=== PATIENT | female | born 1935 | race Caucasian/White ===

== ENCOUNTER → 2017-01-21 | Outpatient (CLI) | payer OTHER, MEDICARE | LOC: CIMAGING 13:05 | PROVIDERS: ATTEND Internal Medicine | DX: R06.00 Dyspnea, unspecified (principal) | CPT/HCPCS: 71020-PO ==

== ENCOUNTER 2017-01-30 12:32 | Emergency (ER) | payer OTHER, MEDICARE ==
[2017-01-30 12:39] VITALS: TEMP 99
--- NOTE | 2017-01-30 12:42 | EDPHY ---
H & P Time Seen by Provider: 01/30/17 12:34 HPI/ROS: CHIEF COMPLAINT: Shortness of breath HISTORY OF PRESENT ILLNESS: Patient had evaluation at her primary care provider 's office 2 days ago and was at her usual baseline. She is a history of COPD and is on 3 L nasal cannula. Patient states that today she began getting more short of breath and was having trouble doing her usual house work and house chores because she would get short of breath which was worse with exertion. Occasional cough with nonproductive, no hemoptysis. No leg swelling. No chest pain. Symptoms are worse than usual. REVIEW OF SYSTEMS: Eye: no change in vision ENT: no sore throat Cardiac: no chest pain or syncope Pulmonary: HPI Abdomen: no vomiting, diarrhea, abdominal pain Musculoskeletal: no back pain Skin: no rash Neuro: no headache Constitutional: no fever : no urinary symptoms A comprehensive 10 point review of systems is otherwise negative aside from elements mentioned in the history of present illness. PAST MEDICAL HISTORY: History and physical dated 08/14/2016 personally reviewed. Includes hypertension, COPD on 3 L nasal cannula, restless leg, hyperlipidemia. Tubal ligation, breast implant, appendectomy. Social history: Ex smoker General Appearance: Alert and conversant, cooperative. Eyes: No scleral icterus. ENT, Mouth: Normal mucous membranes. Respiratory: Decreased breath sounds bilaterally. Cardiovascular: Regular rate and rhythm. Gastrointestinal: Abdomen is soft and non tender. Neurological: Alert and oriented x3. Normally conversant. Face symmetric, normal movement and sensation in all extremities. Skin: Warm and dry, no rashes. Musculoskeletal: No peripheral edema and no joint swelling. No calf tenderness. Psychiatric: Not agitated. Emergency Department course/MDM: DuoNeb, chest x-ray, D-dimer an EKG. 1326: CT angio chest ordered for slightly elevated D-dimer, 2nd nebulizer and 60 mg oral prednisone. I still think the most likely cause of the patient's symptoms is COPD exacerbation. 1545: Results discussed, patient feels better and feels stable for discharge. She is really back to her baseline respiratory status. I think acute coronary syndrome or anginal equivalent is not likely. Smoking Status: Never smoked Constitutional: Initial Vital Signs Temperature (C) 37.2 C 01/30/17 12:32 Heart Rate 99 01/30/17 12:32 Respiratory Rate 22 H 01/30/17 12:32 Blood Pressure 151/75 H 01/30/17 12:32 O2 Sat (%) 94 01/30/17 12:32 O2 Delivery Mode Nasal Cannula O2 (L/minute) 3 Allergies/Adverse Reactions: metformin [Metformin] Allergy (Severe, Verified 01/30/17 12:37) Intolerant Penicillins Allergy (Severe, Verified 01/30/17 12:37) Hives tiotropium bromide [From Spiriva with HandiHaler] Allergy (Severe, Verified 08/10 12:37) Hives Home Medications: Medication Instructions Recorded Atorvastatin Calcium [Lipitor 10 10 mg PO DAILY 02/29/16 mg (*)] Diltiazem Cd [Cardizem ER 120 MG 120 mg PO DAILY 02/29/16 (*)] Losartan Potassium [Cozaar 50 mg 100 mg PO DAILY 02/29/16 (*)] Metoprolol Tartrate [Lopressor 50 75 mg PO DAILY 02/29/16 mg (*)] Ipratropium [Atrovent Hfa (*)] 1 puffs IH DAILY PRN 03/31/16 Zolpidem Tartrate [Ambien 5MG (*)] 5 mg PO HS PRN 03/31/16 rOPINIRole HCL [Requip 0.25mg (RX)] 0.25 mg PO HS 03/31/16 Albuterol [Proventil Inhaler HFA 1 puffs IH DAILY PRN 08/14/16 (*)] Aspirin [Aspirin 325 mg (*)] 325 mg PO DAILY 08/14/16 Fluticasone/Salmeter 250/50Mcg 1 puffs IH BID 08/14/16 [Advair 250/50 (*)] Loratadine [Claritin 10 mg] 10 mg PO DAILY PRN 08/14/16 Tiotropium Inhaler [Spiriva 18 mcg IH HS 08/14/16 Handihaler] amLODIPine BESYLATE [Norvasc 5 mg 5 mg PO DAILY 08/14/16 (*)] predniSONE [prednisone 20mg (RX)] 20 mg PO Q12 #15 tab 01/30/17 Medical Decision Making - Diagnostics EKG Interpretation: 12-lead EKG interpreted by me; official reading is in trace master. My interpretation is sinus rhythm rate 99 with PACs and low frontal voltage. No acute ischemic changes. Imaging: CT angio reviewed with Dr. Gibson at 3:30 p.m. shows severe emphysema but no pulmonary embolism or other acute abnormality. Differential Diagnosis: Differential diagnosis considered for shortness of breath including but not limited to pulmonary infectious process, COPD, asthma, pulmonary embolus and congestive heart failure. - Data Points Laboratory Results: Laboratory Results 01/30/17 12:35 01/30/17 12:35 01/30/17 01/30/17 01/30/17 12:35 12:35 12:35 WBC 8.14 10^3/uL 10^3/uL (3.80-9.50) RBC 4.30 10^6/uL 10^6/uL (4.18-5.33) Hgb 13.5 g/dL g/dL (12.6-16.3) Hct 39.9 % % (38.0-47.0) MCV 92.8 fL fL (81.5-99.8) MCH 31.4 pg pg (27.9-34.1) MCHC 33.8 g/dL g/dL (32.4-36.7) RDW 12.4 % % (11.5-15.2) Plt Count 238 10^3/uL 10^3/uL (150-400) MPV 9.0 fL fL (8.7-11.7) Neut % (Auto) 75.4 % H % (39.3-74.2) Lymph % (Auto) 10.1 % L % (15.0-45.0) [place] % (Auto) 10.3 % % (4.5-13.0) Eos % (Auto) 1.4 % % (0.6-7.6) Baso % (Auto) 0.2 % L % (0.3-1.7) Nucleat RBC Rel Count 0.0 % % (0.0-0.2) Absolute Neuts (auto) 6.14 10^3/uL 10^3/uL (1.70-6.50) Absolute Lymphs (auto) 0.82 10^3/uL L 10^3/uL (1.00-3.00) Absolute Monos (auto) 0.84 10^3/uL H 10^3/uL (0.30-0.80) Absolute Eos (auto) 0.11 10^3/uL 10^3/uL (0.03-0.40) Absolute Basos (auto) 0.02 10^3/uL 10^3/uL (0.02-0.10) Absolute Nucleated RBC 0.00 10^3/uL 10^3/uL (0-0.01) Immature Gran % 2.6 % H % (0.0-1.1) Immature Gran # 0.21 10^3/uL H 10^3/uL (0.00-0.10) D-Dimer 0.51 ug/mLFEU H ug/mLFEU (0.00-0.50) Sodium 133 mEq/L L mEq/L (134-144) Potassium 4.1 mEq/L mEq/L (3.5-5.2) Chloride 98 mEq/L mEq/L (97-110) Carbon Dioxide 27 mEq/l mEq/l (22-31) Anion Gap 8 mEq/L mEq/L (8-16) BUN 14 mg/dL mg/dL (7-23) Creatinine 0.6 mg/dL mg/dL (0.6-1.0) Estimated GFR > 60 Glucose 126 mg/dL H mg/dL (70-100) Calcium 9.2 mg/dL mg/dL (8.5-10.4) Troponin I < 0.012 ng/mL ng/mL (0-0.034) Medications Given: Discontinued Medications Albuterol (Proventil Neb) 3 ml IH EDNOW ONE Stop: 01/30/17 12:47 Last Admin: 01/30/17 13:55 Dose: 3 ml Albuterol (Proventil Neb) 3 ml IH EDNOW ONE Stop: 01/30/17 13:24 Last Admin: 01/30/17 13:25 Dose: 3 ml Prednisone (Prednisone) 60 mg PO EDNOW ONE Stop: 01/30/17 13:24 Last Admin: 01/30/17 13:56 Dose: 60 mg Departure - Departure Disposition: Home, Routine, Self-Care Clinical Impression: Chronic obstructive pulmonary disease with acute exacerbation Condition: Good Instructions: COPD (Chronic Obstructive Pulmonary Disease) (ED) Referrals: Patient,NotPresent [Unknown] - As per Instructions (Dr. Rashard Davies, your PCP) Prescriptions: predniSONE [prednisone 20mg (RX)] 20 mg PO Q12 #15 tab
[2017-01-30] MEDS ORDERED: ALBUTEROL 3 ML DEYVIAL IH ONE ×2 (12:46→13:23)
[2017-01-30 12:53] LABS: % IMMATURE GRANULYOCYTES 2.6 % (0.0-1.1); ABSOLUTE IMMATURE GRANULOCYTES 0.21 10^3/uL (0.00-0.10); ADD DIFF? NO; ADD MORPH? NO; ADD SCAN? NO; ATYPICAL LYMPHOCYTE FLAG 10 (0-99); FRAGMENT RBC FLAG 0 (0-99); HEMATOCRIT 39.9 % (38.0-47.0); HEMOGLOBIN 13.5 g/dL (12.6-16.3); LEFT SHIFT FLG 20 (0-99); LIPEMIA HEMOLYSIS FLAG 90 (0-99); MEAN CELL HEMOGLOBIN 31.4 pg (27.9-34.1); MEAN CELL HEMOGLOBIN CONCENTR. 33.8 g/dL (32.4-36.7); MEAN CELL VOLUME 92.8 fL (81.5-99.8); PLATELET CLUMPS FLAG 10 (0-99); PLATELET COUNT 238 10^3/uL (150-400); RED CELL DISTRIBUTION WIDTH 12.4 % (11.5-15.2)
--- NOTE | 2017-01-30 13:06 | CPEKG ---
Heart Rate: 99 RR Interval: 606 P-R Interval: 152 QRSD Interval: 68 QT Interval: 336 QTC Interval: 432 P [place]: 83 QRS [place]: 0 T Wave [place]: 72 EKG Severity - ABNORMAL ECG - EKG Impression: SINUS TACHYCARDIA EKG Impression: MULTIPLE ATRIAL PREMATURE COMPLEXES EKG Impression: LOW VOLTAGE IN FRONTAL LEADS EKG Impression: BORDERLINE INFERIOR Q WAVES Electronically Signed By: Ge Simmons 30-Jan-2017 13:14:23
[2017-01-30 13:09] LABS: ANION GAP 8 mEq/L (8-16); CALCIUM 9.2 mg/dL (8.5-10.4); CARBON DIOXIDE 27 mEq/l (22-31); CHLORIDE 98 mEq/L (97-110); CREATININE 0.6 mg/dL (0.6-1.0); GLOMERULAR FILTRATION RATE > 60; GLUCOSE 126 mg/dL (70-100); POTASSIUM 4.1 mEq/L (3.5-5.2); SODIUM 133 mEq/L (134-144)
[2017-01-30 13:21] LABS: TROPONIN I < 0.012 ng/mL (0-0.034)
[2017-01-30] MEDS ORDERED: predniSONE 20 MG TAB PO ONE (13:23)
[2017-01-30] MEDS ORDERED: IOPAMIDOL (ISOVUE-300) 100 ML BTL IV ONE ×2 (13:32→14:41)
[2017-01-30 16:22] VITALS: BP 165/97; PULSE 98; RESP 16; O2SAT 97
== END 2017-01-30 17:09 | disposition home or self-care (01) ==
LOC: EDUNIT#
DX: J44.1 Chronic obstructive pulmonary disease with (acute) exacerbation (principal); I10 Essential (primary) hypertension; Z87.891 Personal history of nicotine dependence
CPT/HCPCS: 71020; 71275; 93005; 99285; Q9967

== ENCOUNTER 2017-02-04 15:21 | Emergency (ER) | payer OTHER, MEDICARE ==
[2017-02-04] MEDS ORDERED: IPRATROPIUM/ALBUTEROL 3 ML DEYVIAL IH ONE (15:29)
--- NOTE | 2017-02-04 15:29 | EDPHY ---
H & P Smoking Status: Never smoked Time Seen by Provider: 02/04/17 15:23 HPI/ROS: Chief complaint. [ Shortness of breath ] HPI. [ patient is an 82-year-old female here by EMS with shortness of breath. She was seen in our emergency department 5 days ago for same symptoms. Workup included a normal chest CT angiogram which showed no PE but severe COPD. She was treated with DuoNeb and placed on prednisone.He has been feeling much better and felt well this morning. Then she developed some exertional shortness of breath while doing house work this afternoon. She also suffered a bee sting to the right shoulder this afternoon and maybe had slight increase in shortness of breath. No throat swelling. No rash. She is normally on 3 L of oxygen at home and she is 98% saturation on 3 L in the emergency department. no chest pain ROS Constitutional. [no fever/chills, no weakness] Eyes. [no problems with vision] ENT. [no sore throat, no nasal drainage] Cardiovascular. [no chest pain] Respiratory. shortness of breath Abdominal. [no abdominal pain, no nausea/vomiting, no diarrhea] . [no problems urinating] MS. [no calf pain/swelling, no neck/back pain, no joint pain] Skin. [no rash] Lymph. [no swollen glands] Neuro. [no headache, no dizziness, no difficulty walking or with speech] ( Chepe Dean) Past Medical/Surgical History: past medical history significant for COPD (Chepe Dean) Social History: , nonsmoker, no alcohol (Chepe Dean) Physical Exam: General Appearance: Alert well-developed female mild distress vital signs are stable Eyes:[ Pupils equal and round no pallor or injection]. ENT,[ Mouth: Mucous membranes are moist.] Respiratory: [There are no retractions, lungs are clear to auscultation.] Cardiovascular:[ Regular rate and rhythm.] Gastrointestinal: [ Abdomen is soft and nontender, no masses, bowel sounds normal.] Neurological: [Awake and alert, sensory and motor exams grossly normal.] Skin:[ Warm and dry, no rashes.] Musculoskeletal: [Neck is supple nontender.] Extremities [ symmetrical, full range of motion.] Psychiatric:[ Patient is oriented X 3, there is no agitation.] (Jermaine,Chepe S) Constitutional: Initial Vital Signs Temperature (C) 97.9 F 02/04/17 15:21 Heart Rate 98 02/04/17 15:21 Respiratory Rate 20 02/04/17 15:21 Blood Pressure 193/85 H 02/04/17 15:21 O2 Sat (%) 95 02/04/17 15:21 O2 Delivery Mode Nasal Cannula O2 (L/minute) 3 Allergies/Adverse Reactions: metformin [Metformin] Allergy (Severe, Verified 02/09/17 19:52) Intolerant Penicillins Allergy (Severe, Verified 02/09/17 19:52) Hives tiotropium bromide [From Spiriva with HandiHaler] Allergy (Severe, Verified 19:52) Hives Home Medications: Medication Instructions Recorded Atorvastatin Calcium [Lipitor 10 10 mg PO DAILY 02/29/16 mg (*)] Diltiazem Cd [Cardizem ER 120 MG 120 mg PO DAILY 02/29/16 (*)] Losartan Potassium [Cozaar 50 mg 100 mg PO DAILY 02/29/16 (*)] Metoprolol Tartrate [Lopressor 50 75 mg PO DAILY 02/29/16 mg (*)] Ipratropium [Atrovent Hfa (*)] 1 puffs IH DAILY PRN 03/31/16 Zolpidem Tartrate [Ambien 5MG (*)] 5 mg PO HS PRN 03/31/16 rOPINIRole HCL [Requip 0.25mg (RX)] 0.25 mg PO HS 03/31/16 Albuterol [Proventil Inhaler HFA 1 puffs IH DAILY PRN 08/14/16 (*)] Aspirin [Aspirin 325 mg (*)] 325 mg PO DAILY 08/14/16 Fluticasone/Salmeter 250/50Mcg 1 puffs IH BID 08/14/16 [Advair 250/50 (*)] amLODIPine BESYLATE [Norvasc 5 mg 5 mg PO DAILY 08/14/16 (*)] predniSONE 20 mg PO DAILY 7 Days 02/04/17 Medical Decision Making - Diagnostics EKG Interpretation: EKG interpreted by me shows normal sinus rhythm with normal interval. There is left axis deviation. Occasional PVC. No significant ST elevation or depression. Rate is 87 (Jermaine,Chepe S) Imaging: Chest x-ray shows COPD but no acute change. no evidence for pneumonia there is no acute change from previous chest x-ray 5 days ago (Chepe Dean) Procedures: albuterol updraft (Chepe Dean) ED Course/Re-evaluation: patient normally uses 3 L of oxygen. She is currently 98% saturation on 3 L recheck 4:20 p.m. (Chepe Dean) Differential Diagnosis: I considered COPD exacerbation, pneumonia, bronchitis (Chepe Dean) Other Provider: I did not evaluate this patient. I was not involved in the care of this patient. I do not know why my name is on the chart. Please see Dr. Dean's note for all aspects of this patient's care. (Jairo Galdamez) - Data Points Laboratory Results: Laboratory Results 02/04/17 15:46 02/04/17 15:46 Medications Given: Discontinued Medications Albuterol (Proventil Neb) 3 ml IH EDNOW ONE Stop: 02/04/17 15:32 Last Admin: 02/04/17 15:45 Dose: 3 ml Albuterol/Ipratropium (Duoneb) 3 ml IH EDNOW ONE Stop: 02/04/17 15:30 Last Admin: 02/04/17 15:34 Dose: Not Given Departure - Departure Disposition: Home, Routine, Self-Care Clinical Impression: Chronic obstructive pulmonary disease with acute exacerbation Condition: Good Instructions: Acute Bronchitis (ED) Additional Instructions: continue your breathing treatments at home. Continue using prednisone and I will write your prescription for more. Zithromax as antibiotic try to move your appointment up with Dr. Davies to be seen in next 2-3 days Referrals: Patient,NotPresent [Unknown] - As per Instructions Prescriptions: predniSONE 20 mg PO DAILY 7 Days
[2017-02-04] MEDS ORDERED: ALBUTEROL 3 ML DEYVIAL IH ONE (15:31)
[2017-02-04 15:33] VITALS: TEMP 97.9; O2SAT 95
--- NOTE | 2017-02-04 15:47 | CPEKG ---
Heart Rate: 87 RR Interval: 690 P-R Interval: 140 QRSD Interval: 76 QT Interval: 356 QTC Interval: 429 P [place]: 70 QRS [place]: -1 T Wave [place]: 47 EKG Severity - ABNORMAL ECG - EKG Impression: SINUS RHYTHM Electronically Signed By: Chepe Dean 05-Feb-2017 00:13:59
[2017-02-04 15:50] LABS: ADD DIFF? YES; ADD MORPH? NO; ADD SCAN? NO; ATYPICAL LYMPHOCYTE FLAG 0 (0-99); FRAGMENT RBC FLAG 0 (0-99); HEMATOCRIT 40.1 % (38.0-47.0); HEMOGLOBIN 13.5 g/dL (12.6-16.3); LEFT SHIFT FLG 20 (0-99); LIPEMIA HEMOLYSIS FLAG 80 (0-99); MEAN CELL HEMOGLOBIN CONCENTR. 33.7 g/dL (32.4-36.7); MEAN CELL VOLUME 92.2 fL (81.5-99.8); MEAN PLATELET VOLUME 9.1 fL (8.7-11.7); PLATELET CLUMPS FLAG 0 (0-99); PLATELET COUNT 308 10^3/uL (150-400); RED BLOOD CELL COUNT 4.35 10^6/uL (4.18-5.33); RED CELL DISTRIBUTION WIDTH 12.3 % (11.5-15.2)
[2017-02-04 16:04] LABS: ANION GAP 15 mEq/L (8-16); CALCIUM 9.7 mg/dL (8.5-10.4); CARBON DIOXIDE 24 mEq/l (22-31); CHLORIDE 95 mEq/L (97-110); CREATININE 0.6 mg/dL (0.6-1.0); GLOMERULAR FILTRATION RATE > 60; GLUCOSE 270 mg/dL (70-100); POTASSIUM 3.8 mEq/L (3.5-5.2); SODIUM 134 mEq/L (134-144)
[2017-02-04 16:08] VITALS: RESP 18
[2017-02-04 16:16] LABS: TROPONIN I < 0.012 ng/mL (0-0.034)
[2017-02-04 16:24] LABS: LARGE PLATELETS PRESENT; PLATELET ESTIMATE ADEQUATE (ADEQ)
[2017-02-04 16:50] VITALS: BP 199/72; PULSE 89
== END 2017-02-04 17:06 | disposition home or self-care (01) ==
LOC: EDUNIT#
DX: J44.1 Chronic obstructive pulmonary disease with (acute) exacerbation (principal); Z79.82 Long term (current) use of aspirin

== ENCOUNTER 2017-02-09 19:35 | Observation (INO) | payer OTHER, MEDICARE ==
--- NOTE | 2017-02-09 19:35 | EDPHY ---
H & P Constitutional: Initial Vital Signs Temperature (C) 36.6 C 02/09/17 19:51 Heart Rate 103 H 02/09/17 19:51 Respiratory Rate 20 02/09/17 19:51 Blood Pressure 167/88 H 02/09/17 19:51 O2 Sat (%) 94 02/09/17 19:51 O2 Delivery Mode Nasal Cannula O2 (L/minute) 3 Allergies/Adverse Reactions: metformin [Metformin] Allergy (Severe, Verified 02/09/17 19:52) Intolerant Penicillins Allergy (Severe, Verified 02/09/17 19:52) Hives tiotropium bromide [From Spiriva with HandiHaler] Allergy (Severe, Verified 19:52) Hives Home Medications: Medication Instructions Recorded Atorvastatin Calcium [Lipitor 10 10 mg PO DAILY 02/29/16 mg (*)] Diltiazem Cd [Cardizem ER 120 MG 120 mg PO DAILY 02/29/16 (*)] Losartan Potassium [Cozaar 50 mg 100 mg PO DAILY 02/29/16 (*)] Metoprolol Tartrate [Lopressor 50 75 mg PO DAILY 02/29/16 mg (*)] Ipratropium [Atrovent Hfa (*)] 1 puffs IH DAILY PRN 03/31/16 Zolpidem Tartrate [Ambien 5MG (*)] 5 mg PO HS PRN 03/31/16 rOPINIRole HCL [Requip 0.25mg (RX)] 0.25 mg PO HS 03/31/16 Albuterol [Proventil Inhaler HFA 1 puffs IH DAILY PRN 08/14/16 (*)] Aspirin [Aspirin 325 mg (*)] 325 mg PO DAILY 08/14/16 Fluticasone/Salmeter 250/50Mcg 1 puffs IH BID 08/14/16 [Advair 250/50 (*)] Loratadine [Claritin 10 mg] 10 mg PO DAILY PRN 08/14/16 amLODIPine BESYLATE [Norvasc 5 mg 5 mg PO DAILY 08/14/16 (*)] predniSONE 20 mg PO DAILY 7 Days 02/04/17 Medical Decision Making ED Course/Re-evaluation: CHIEF COMPLAINT: Weakness, atrial fibrillation HISTORY OF PRESENT ILLNESS: The patient is an 82 y/o female arriving via EMS complaining of generalized weakness onset around 18:45, about 1 hour prior to arrival. EMS reports they found her in rapid atrial fibrillation with a rate around 180. She reports she can tell exactly when her rhythm changes. She has been to the ED once before for atrial fibrillation but converted with "a pill." She is compliant with all her medications. She denies chest pain or pressure or [id number] dyspnea. She does not take anticoagulants, only aspirin. EMS believes she converted to sinus tachycardia after IV fluid en route. REVIEW OF SYSTEMS: A 10 point review of systems was performed and is negative with the exception of the elements mentioned in the history of present illness. PHYSICAL EXAM: HR, BP, O2 Sat, RR. Temp noted General Appearance: Alert, well hydrated, appropriate, and non-toxic appearing. Head: Atraumatic without scalp tenderness or obvious injury Eyes: Pupils equal, round, reactive to light and accommodation, EOMI, no trauma , no injection. Ears: Clear bilaterally, no perforation, normal landmarks Nose: Atraumatic, no rhinorrhea, clear. Throat: There is no erythema or exudates, no lesions, normal tonsils, mucus membranes moist. Neck: Supple, nontender, no lymphadenopathy. Respiratory: No retractions, no distress, no wheezes, and no accessory muscle use. Lungs are clear to auscultation bilaterally. Cardiovascular: Tachycardic regular rate and rhythm, no murmurs, rubs, or gallops. Bilateral radial pulses intact. Good capillary refill all extremities. Gastrointestinal: Abdomen is soft, nontender, non-distended, no masses, no rebound, no guarding, no peritoneal signs. Musculoskeletal: Normal active ROM of all extremities, atraumatic. Neurological: Alert, appropriate, and interactive. The patient has normal DTRs and non-focal cranial nerves, motor, sensory, and cerebellar exam. Skin: No rashes, good turgor, no nodules on palpation. 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 Sharp DIAGNOSTICS/PROCEDURES/CRITICAL CARE TIME: The 12 lead EKG was interpreted by myself. EKG shows sinus rhythm rate 94 with PACs. See hard copy and/or "tracemaster" electronic copy for interpretation. DIFFERENTIAL DIAGNOSIS: The differential diagnosis for the patient's narrow complex tachycardia included but was not limited to various causes of sinus tachycardia such as dehydration and medicines, SVT, atrial flutter, atrial fibrillation, pulmonary causes. MEDICAL DECISION MAKING: This is a well-appearing 82 y/o female presenting after a 1-hour episode of weakness and rapid heart rate tonight. EMS found her in rapid atrial fibrillation, but she converted to sinus tachycardia en route. She denies chest pain, [id number] dyspnea, or other symptoms. Plan for basic cardiac labs and EKG. EKGs shows sinus rhythm and PACs. Labs show elevated BNP, which likely represents some CHF, elevated troponin that probably represents heart strain from the episode of atrial fibrillation, and a BGL of 415. She reports she is borderline diabetic and does not take insulin regularly. 10 unit SQ insulin administered. Plan for admission. - Data Points Laboratory Results: Laboratory Results 02/09/17 20:00 02/09/17 20:00 02/09/17 02/09/17 20:00 20:00 WBC 15.37 10^3/uL H 10^3/uL (3.80-9.50) RBC 4.64 10^6/uL 10^6/uL (4.18-5.33) Hgb 14.2 g/dL g/dL (12.6-16.3) Hct 42.6 % % (38.0-47.0) MCV 91.8 fL fL (81.5-99.8) MCH 30.6 pg pg (27.9-34.1) MCHC 33.3 g/dL g/dL (32.4-36.7) RDW 12.7 % % (11.5-15.2) Plt Count 302 10^3/uL 10^3/uL (150-400) MPV 9.1 fL fL (8.7-11.7) Neut % (Auto) Not Reported Lymph % (Auto) Not Reported [place] % (Auto) Not Reported Eos % (Auto) Not Reported Baso % (Auto) Not Reported Nucleat RBC Rel Count 0.4 % H % (0.0-0.2) Absolute Neuts (auto) Not Reported Absolute Lymphs (auto) Not Reported Absolute Monos (auto) Not Reported Absolute Eos (auto) Not Reported Absolute Basos (auto) Not Reported Absolute Nucleated RBC 0.06 10^3/uL H 10^3/uL (0-0.01) Immature Gran % Not Reported Seg Neutrophils % 87 % % Band Neutrophils % 2 % % Lymphocytes % 5 % % Monocytes % 3 % % Myelocytes % 3 % % Immature Gran # Not Reported Absolute Seg Neuts 13.37 10^/uL H 10^/uL (1.70-6.50) Absolute Band Neuts 0.31 10^3/uL 10^3/uL (0.00-0.70) Absolute Lymphocytes 0.77 10^3/uL L 10^3/uL (1.00-3.00) Absolute Monocytes 0.46 10^3/uL 10^3/uL (0.30-0.80) Absolute Myelocytes 0.46 10^3/mL H 10^3/mL (0.00-0.00) Platelet Estimate ADEQUATE (ADEQ) Tear Drop Cells 1+ H Smear Review By Pending Sodium 135 mEq/L mEq/L (134-144) Potassium 4.1 mEq/L mEq/L (3.5-5.2) Chloride 95 mEq/L L mEq/L (97-110) Carbon Dioxide 24 mEq/l mEq/l (22-31) Anion Gap 16 mEq/L mEq/L (8-16) BUN 26 mg/dL H mg/dL (7-23) Creatinine 0.8 mg/dL mg/dL (0.6-1.0) Estimated GFR > 60 Glucose 415 mg/dL H mg/dL (70-100) Calcium 9.5 mg/dL mg/dL (8.5-10.4) Magnesium 1.9 mg/dL mg/dL (1.6-2.3) Troponin I 0.047 ng/mL H ng/mL (0-0.034) NT-Pro-B Natriuret Pep 1210 pg/mL H pg/mL (0-450) Departure - Departure Disposition: [facility] Clinical Impression: Elevated troponin, Hyperglycemia Atrial fibrillation Qualifiers: Atrial fibrillation type: paroxysmal Qualified Code(s): I48.0 - Paroxysmal atrial fibrillation Condition: Good Instructions: A-fib (Atrial Fibrillation) (ED) Additional Instructions: 1. Continue all your medications as prescribed. Referrals: Patient,NotPresent [Primary Care Provider] - As per Instructions Cruz Sharp MD [Medical Doctor] - As per Instructions Report Scribed for: Gee Rizvi Report Scribed by: Lila Oviedo Date of Report: 02/09/17 Time of Report: 19:45
--- NOTE | 2017-02-09 20:02 | CPEKG ---
Heart Rate: 94 RR Interval: 638 P-R Interval: 152 QRSD Interval: 68 QT Interval: 352 QTC Interval: 441 P [place]: 70 QRS [place]: -5 T Wave [place]: 50 EKG Severity - BORDERLINE ECG - EKG Impression: SINUS RHYTHM EKG Impression: ATRIAL PREMATURE COMPLEX EKG Impression: BORDERLINE INFERIOR Q WAVES Electronically Signed By: Kim Bauman 09-Feb-2017 21:20:14
[2017-02-09 20:17] LABS: ABSOLUTE NRBC COUNT 0.06 10^3/uL (0-0.01); ADD DIFF? YES; ADD MORPH? NO; ADD SCAN? NO; ATYPICAL LYMPHOCYTE FLAG 0 (0-99); FRAGMENT RBC FLAG 0 (0-99); HEMATOCRIT 42.6 % (38.0-47.0); HEMOGLOBIN 14.2 g/dL (12.6-16.3); LEFT SHIFT FLG 30 (0-99); LIPEMIA HEMOLYSIS FLAG 80 (0-99); MEAN CELL HEMOGLOBIN 30.6 pg (27.9-34.1); MEAN CELL HEMOGLOBIN CONCENTR. 33.3 g/dL (32.4-36.7); MEAN CELL VOLUME 91.8 fL (81.5-99.8); MEAN PLATELET VOLUME 9.1 fL (8.7-11.7); NRBC-AUTO% 0.4 % (0.0-0.2); PLATELET CLUMPS FLAG 0 (0-99); PLATELET COUNT 302 10^3/uL (150-400); RED BLOOD CELL COUNT 4.64 10^6/uL (4.18-5.33); RED CELL DISTRIBUTION WIDTH 12.7 % (11.5-15.2)
[2017-02-09 20:25] LABS: ANION GAP 16 mEq/L (8-16); CALCIUM 9.5 mg/dL (8.5-10.4); CARBON DIOXIDE 24 mEq/l (22-31); CHLORIDE 95 mEq/L (97-110); CREATININE 0.8 mg/dL (0.6-1.0); GLOMERULAR FILTRATION RATE > 60; GLUCOSE 415 mg/dL (70-100); MAGNESIUM 1.9 mg/dL (1.6-2.3); POTASSIUM 4.1 mEq/L (3.5-5.2); SODIUM 135 mEq/L (134-144)
[2017-02-09 20:37] LABS: TROPONIN I 0.047 ng/mL (0-0.034)
[2017-02-09 20:39] LABS: PLATELET ESTIMATE ADEQUATE (ADEQ)
[2017-02-09] MEDS ORDERED: INSULIN REGULAR HUMAN 100 UNIT/ML SC ONE (20:45)
[2017-02-10] MEDS ORDERED: ACETAMINOPHEN 325 MG TAB PO PRN (02:11)
[2017-02-10] MEDS ORDERED: ONDANSETRON 4 MG/2 ML VIAL IVP PRN (02:11)
[2017-02-10] MEDS ORDERED: ONDANSETRON DISINTEGRATING 4 MG TAB PO PRN (02:11)
[2017-02-10] MEDS ORDERED: ZOLPIDEM TARTRATE 5 MG TAB PO PRN (02:12)
[2017-02-10] MEDS ORDERED: D50W 25 GM/50 ML SYR IVP PRN (02:14)
[2017-02-10 04:51] LABS: ADD DIFF? YES; ADD MORPH? NO; ADD SCAN? NO; ATYPICAL LYMPHOCYTE FLAG 0 (0-99); FRAGMENT RBC FLAG 0 (0-99); HEMATOCRIT 37.5 % (38.0-47.0); HEMOGLOBIN 12.6 g/dL (12.6-16.3); LEFT SHIFT FLG 30 (0-99); LIPEMIA HEMOLYSIS FLAG 80 (0-99); MEAN CELL HEMOGLOBIN 31.4 pg (27.9-34.1); MEAN CELL HEMOGLOBIN CONCENTR. 33.6 g/dL (32.4-36.7); MEAN CELL VOLUME 93.5 fL (81.5-99.8); PLATELET CLUMPS FLAG 0 (0-99); PLATELET COUNT 247 10^3/uL (150-400); RED BLOOD CELL COUNT 4.01 10^6/uL (4.18-5.33); RED CELL DISTRIBUTION WIDTH 12.6 % (11.5-15.2)
[2017-02-10 05:10] LABS: ANION GAP 7 mEq/L (8-16); CALCIUM 8.7 mg/dL (8.5-10.4); CARBON DIOXIDE 30 mEq/l (22-31); CHLORIDE 100 mEq/L (97-110); CREATININE 0.6 mg/dL (0.6-1.0); GLOMERULAR FILTRATION RATE > 60; GLUCOSE 116 mg/dL (70-100); POTASSIUM 4.1 mEq/L (3.5-5.2); SODIUM 137 mEq/L (134-144)
[2017-02-10 05:19] LABS: TROPONIN I 0.032 ng/mL (0-0.034)
[2017-02-10 06:03] LABS: PLATELET ESTIMATE ADEQUATE (ADEQ)
--- NOTE | 2017-02-10 07:49 | GHP ---
[f rep st] HISTORY AND PHYSICAL DATE OF ADMISSION: 02/09/2017 CHIEF COMPLAINT: Heart palpitations. HISTORY OF PRESENT ILLNESS: This is an 82-year-old female with a history of COPD and atrial fibrill ation. She has been struggling with bronchitis and COPD exacerbation for the last couple weeks and has been on a couple rounds of steroids. She is due to stop her steroids today, the day of admissio n. She was feeling generally pretty well and has had sudden episode of weakness and measured her he art rate was in the 180s. She then called EMS. By the time she got to the emergency department, sh e had already converted. She is currently feeling well. Denies any chest pain or shortness of clau th. No fevers or chills. REVIEW OF SYSTEMS: A 10-point review of systems obtained other than stated above was negative. PAST MEDICAL HISTORY: 1. COPD on 2-3 L of oxygen. 2. Atrial fibrillation. 3. Coronary artery disease. 4. Hypertension. 5. Osteoarthritis. 6. Restless legs syndrome. MEDICATIONS: Reviewed. FAMILY HISTORY: Both parents are . SOCIAL HISTORY: No smoking, quit. She occasionally drinks alcohol. PHYSICAL EXAM: VITAL SIGNS: Afebrile. Blood pressure is 154/72, heart rate 76, oxygen saturation 98% on 3 L. GENERAL: The patient is well developed, no apparent distress. HEENT: Nonicteric scle francisca. Extraocular movements intact. Moist mucous membranes. NECK: Supple. No thyromegaly. LUNGS : Decreased breath sounds. Some slight fine expiratory wheezes. CARDIOVASCULAR: Regular rate and rhythm. No murmurs, rubs or gallops. ABDOMEN: Positive bowel sounds. Soft, nontender, nondistend ed. No hepatosplenomegaly. EXTREMITIES: No clubbing, cyanosis, or edema. SKIN: Without rash, dr y, intact. NEURO: Alert and oriented x3. Moves all 4 extremities equally. PSYCH: Normal affect. LABS: White blood cell count is 12. Blood sugar initially was 400. Troponin is 0.047. There is n ormal sinus rhythm with no ischemic changes. Chest x-ray personally reviewed and interpreted, shows COPD but no acute infiltrate. ASSESSMENT: An 82-year-old female who had a transient episode of atrial fibrillation with rapid marcel tricular response. PLAN: 1. Atrial fibrillation. The patient is in sinus rhythm currently. I am not sure that we would ginny e any changes in her medications at this point. We will notify Cardiology that she is here, but she could probably leave later today. 2. Mild troponin leak. This is probably due to her rapid heart rate. Repeat troponin is trending down. 3. Hyperglycemia. This is most likely due to steroids. I have checked a hemoglobin A1c. We are s topping her steroids today as was her last day. 4. Chronic obstructive pulmonary disease exacerbation. Patient still has a little bit of wheezing. I am going to give her a nebulizer treatment. /[id number]/MODL
[2017-02-10] MEDS: INSULIN LISPRO 100 UNIT/ML SC SCH ×2 (08:15→12:36)
[2017-02-10] MEDS ORDERED: amLODIPine BESYLATE 5 MG TAB PO SCH (09:00)
[2017-02-10] MEDS ORDERED: predniSONE 20 MG TAB PO SCH (09:00)
[2017-02-10] MEDS ORDERED: ASPIRIN 325 MG TAB PO SCH (09:00)
[2017-02-10] MEDS ORDERED: LOSARTAN POTASSIUM 50 MG TAB PO SCH (09:00)
[2017-02-10] MEDS ORDERED: METOPROLOL TARTRATE 50 MG TAB PO SCH (09:00)
[2017-02-10] MEDS ORDERED: DILTIAZEM CD 120 MG CAP PO SCH (09:00)
[2017-02-10] MEDS ORDERED: ATORVASTATIN CALCIUM 10 MG TAB PO SCH (09:00)
[2017-02-10] MEDS ORDERED: FLUTICASONE/SALMETER 250/50MCG DISKUS IH SCH (09:00)
[2017-02-10] MEDS: ALBUTEROL 3 ML DEYVIAL IH SCH ×2 (09:32→09:43)
[2017-02-10 09:38] LABS: HEMOGLOBIN A1C 6.6 % (4.0-6.0)
[2017-02-10 11:31] VITALS: BP 168/75; PULSE 60; RESP 21; TEMP 98.3; O2SAT 95
--- NOTE | 2017-02-10 13:10 | GDS ---
[f rep st] DISCHARGE SUMMARY KNOWN ACUTE DIAGNOSES ON THIS ADMISSION: 1. Acute supraventricular tachycardia, atrial tachycardia, no confirmation of atrial fibrillation. 2. Acute exacerbation chronic obstructive pulmonary disease with chronic hypoxemia on 2-3 L per min [place] oxygen. 3. Coronary artery disease. No chest pain. 4. Hypertension. Good control. CHRONIC DIAGNOSES: 1. Osteoarthritis. 2. Restless legs syndrome. CONSULTATION: Cardiology review of rhythm strips. No confirmation of the presence of atrial fibril lation. The rhythm was judged to be atrial tachycardia, secondary to COPD. HOSPITAL COURSE: An 82-year-old female, who by history has had 1 episode of transient atrial fibril lation back in 2014. She presented with tachypnea, tachycardia, and was thought to have an acute ex acerbation of COPD with possible atrial fibrillation. She was admitted and placed on bronchodilator therapy. Her atrial tachycardia quickly resolved spontaneously. Review of her rhythm strips by [facility] rdiology indicates that this is an atrial tachycardia, an SVT secondary to COPD, but there was no pr esence of atrial fibrillation. Thus, anticoagulation is not indicated. Cardiology indicated that they will follow the patient and place another monitor to assess for the p resence of atrial fibrillation. At this time, they have declined the need for anticoagulation. DISCHARGE MEDICATIONS: These are the same as her admission medications and are as follows: Requip 0.25 mg q.h.s., prednisone 20 mg daily for the next 7 days, amlodipine 5 mg daily, Ambien 5 mg daily , Lopressor 75 mg daily, losartan 100 mg daily, Atrovent inhalation 1 puff q.4 hours p.r.n., Advair 250/50 mcg inhaler 1 puff twice daily, Cardizem ER 120 mg daily, Lipitor 10 mg daily, ASA 325 mg rose ly, albuterol inhaler 1 puff q.4 hours p.r.n. shortness of breath. PLAN: The patient will follow up with her PCP, Dr. Davies, in the next 3-4 days. She will also follo w up with [facility], Dr. Cruz Sharp, for placement of a monitor. CONDITION ON DISCHARGE: Good. CODE STATUS: Full. The patient was discharged in the accompaniment of her son who lives with her. TIME: This discharge required 40 minutes, greater than 50% to service counselor, coordinate care, and coordin ate care with Cardiology and her PCP. /[id number]/MODL
== END 2017-02-10 14:00 | disposition home or self-care (01) ==
LOC: EDUNIT# → F2W 22:03
PROVIDERS: ADMIT Internal Medicine; ATTEND Internal Medicine
DX: I47.1 Supraventricular tachycardia (principal); J44.1 Chronic obstructive pulmonary disease with (acute) exacerbation; Z99.81 Dependence on supplemental oxygen; I10 Essential (primary) hypertension; R73.03 Prediabetes; I25.10 Atherosclerotic heart disease of native coronary artery without angina pectoris
CPT/HCPCS: 93005; G0378; J1815

== ENCOUNTER 2017-02-22 18:53 | Emergency (ER) | payer OTHER, MEDICARE ==
--- NOTE | 2017-02-22 19:00 | EDPHY ---
H & P HPI/ROS: CHIEF COMPLAINT: Shoulder pain HISTORY OF PRESENT ILLNESS: Patient is an 82-year-old female who comes to the emergency department by EMS for right shoulder pain. She had a mechanical fall at home in her kitchen. She had been drinking alcohol today. She also received fentanyl 100 mcg by EMS in route. She now states she has no pain. Her right shoulder is in a sling. There is obvious deformity and puckering of the skin. REVIEW OF SYSTEMS: Constitutional: denies: chills, fever, recent illness, recent injury EENTM: denies: blurred vision, double vision, nose congestion Respiratory: denies: cough, shortness of breath Cardiac: denies: chest pain, irregular heart rate, lightheadedness, palpitations Gastrointestinal/Abdominal: denies: abdominal pain, diarrhea, nausea, vomiting, blood streaked stools Genitourinary: denies: dysuria, frequency, hematuria, pain Musculoskeletal: See HPI Skin: denies: lesions, rash, jaundice, bruising Neurological: denies: headache, numbness, paresthesia, tingling, dizziness, weakness Hematologic/Lymphatic: denies: blood clots, easy bleeding, easy bruising Immunologic/allergic: denies: HIV/AIDS, transplant EXAM: GENERAL: Sleepy, well-nourished and in no acute distress. HEAD: Atraumatic, normocephalic. EYES: Pupils equal round and reactive to light, extraocular movements intact, sclera anicteric, conjunctiva are normal. ENT: TMs normal, nares patent, oropharynx clear without exudates. Moist mucous membranes. NECK: Normal range of motion, supple without lymphadenopathy or JVD. LUNGS: Breath sounds clear to auscultation bilaterally and equal. No wheezes rales or rhonchi. HEART: Regular rate and rhythm without murmurs, rubs or gallops. ABDOMEN: Soft, nontender, normoactive bowel sounds. No guarding, no rebound. No masses appreciated. BACK: No CVA tenderness, no spinal tenderness, step-offs or deformities EXTREMITIES: Right shoulder deformity and puckering of the skin anteriorly. Normal pulses distally. Normal sensation distally. No other extremity injury appreciated. NEUROLOGICAL: Cranial nerves II through XII grossly intact. Normal speech, normal gait. 5/5 strength, normal movement in all extremities, normal sensation PSYCH: Normal mood, normal affect. SKIN: Warm, dry, normal turgor, no visible rashes or lesions. Source: Patient, EMS, Old records Exam Limitations: No limitations - Personal History Tetanus Vaccine Date: < 10 years - Medical/Surgical History Hx Asthma: No Hx Chronic Respiratory Disease: Yes Hx Diabetes: No Hx Cardiac Disease: Yes Hx Renal Disease: No Hx Cirrhosis: No Hx Alcoholism: No Hx HIV/AIDS: No Hx Splenectomy or Spleen Trauma: No Other PMH: pmh- COPD, HTN, SVT, PNA, high cholesterol,. psh- breast augmentation, tonsilectomy, appy, cardiac stent x1, tubal ligation - Family History Significant Family History: No pertinent family hx - Social History Smoking Status: Former smoker Alcohol Use: Sober Drug Use: None Constitutional: Initial Vital Signs Temperature (C) 36.3 C 02/22/17 19:03 Heart Rate 83 02/22/17 19:03 Respiratory Rate 14 02/22/17 19:03 Blood Pressure 137/54 H 02/22/17 19:03 O2 Sat (%) 92 02/22/17 19:03 O2 Delivery Mode Nasal Cannula O2 (L/minute) 3 Allergies/Adverse Reactions: metformin [Metformin] Allergy (Severe, Verified 02/22/17 19:08) Intolerant Penicillins Allergy (Severe, Verified 02/22/17 19:08) Hives tiotropium bromide [From Spiriva with HandiHaler] Allergy (Severe, Verified 12/10 19:08) Hives Home Medications: Medication Instructions Recorded Atorvastatin Calcium [Lipitor 10 10 mg PO DAILY 02/29/16 mg (*)] Diltiazem Cd [Cardizem ER 120 MG 120 mg PO DAILY 02/29/16 (*)] Losartan Potassium [Cozaar 50 mg 100 mg PO DAILY 02/29/16 (*)] Metoprolol Tartrate [Lopressor 50 75 mg PO DAILY 02/29/16 mg (*)] Ipratropium [Atrovent Hfa (*)] 1 puffs IH DAILY PRN 03/31/16 Zolpidem Tartrate [Ambien 5MG (*)] 5 mg PO HS PRN 03/31/16 rOPINIRole HCL [Requip 0.25mg (RX)] 0.25 mg PO HS 03/31/16 Albuterol [Proventil Inhaler HFA 1 puffs IH DAILY PRN 08/14/16 (*)] Aspirin [Aspirin 325 mg (*)] 325 mg PO DAILY 08/14/16 Fluticasone/Salmeter 250/50Mcg 1 puffs IH BID 08/14/16 [Advair 250/50 (*)] amLODIPine BESYLATE [Norvasc 5 mg 5 mg PO DAILY 08/14/16 (*)] predniSONE 20 mg PO DAILY 7 Days 02/04/17 Medical Decision Making - Diagnostics Imaging: X-ray: Clavicle x-ray was obtained. I viewed the images myself on the PACS system. My interpretation of the images is: negative for acute disease . The radiologist interpretation is pending. X-ray: Right shoulder x-ray was obtained. I viewed the images myself on the PACS system. My interpretation of the images is: Positive for anterior dislocation, no fracture the. The radiologist interpretation is pending. X-ray: Right shoulder post reduction x-ray was obtained. I viewed the images myself on the PACS system. My interpretation of the images is: Positive for Hill-Sachs deformity . The radiologist interpretation is pending . Procedures: Procedure: Procedural sedation. Indication: Shoulder reduction. A pre-sedation evaluation was completed on the patient just prior to the procedure. Patient is an appropriate candidate for procedural sedation with a normal 3-3-2 rule assessment and a Mallampati airway score of class 2. The risks of the sedation were discussed including but not limited to dysrhythmia, need for airway intervention or general anesthesia, disability, ; and verbal consent obtained. A timeout was observed and patient's identity confirmed. The patient was sedated with 80 mg ketamine. The patient was monitored with continuous pulse oximetry, capnography, and landscape horticulture instructor. There were no complications and no significant hypoxemia. I remained at the bedside for the sedation. The total time I spent in the procedural sedation was 20 minutes. Procedure: Dislocation reduction. The shoulder was reduced in the usual fashion using the Kevin's technique and scapular manipulation without complications. Post reduction the patient's neurovascular exam is normal. Post reduction x-ray demonstrates reduction of the joint to the anatomic position. The procedure was performed by myself. Procedure: Splint placement. A sling splint was applied. After application of the splint I returned and re- examined the patient. The splint was adequately immobilizing the joint and distal to the splint the patient's circulation and sensation was intact. ED Course/Re-evaluation: Patient failed reduction by Valdez method without sedation. I then sedated her and the reduced it easily. She tolerated the conscious sedation well. She was placed in a sling and will have her follow up with Orthopedics. I reviewed the films with Dr. Colindres. He will follow up with her in the clinic. Splint for tonight. is happy with this. Differential Diagnosis: Partial list of the Differential diagnosis considered include but were not limited to; shoulder dislocation, humerus fracture, clavicle fracture and although unlikely based on the history and physical exam, I also considered head injury neck injury, non accidental trauma, infection. I discussed these differential diagnoses and the plan with the patient as well as the usual and expected course. The patient understands that the diagnosis is provisional and that in medicine we are not always correct and that further workup is often warranted. Usual and customary warnings were given. All of the patient's questions were answered. The patient was instructed to return to the emergency department should the symptoms at all worsen or return, otherwise to followup with the physician as we discussed. - Data Points Medications Given: Discontinued Medications Hydrocodone Bitart/Acetaminophen ([place] 5/325mg Prepack#6) 1 btl TAKEHOME EDNOW ONE Stop: 02/22/17 20:15 Last Admin: 02/22/17 22:46 Dose: 1 btl Ketamine HCl (Ketamine) 80 mg IVP EDNOW ONE Stop: 02/22/17 20:08 Last Admin: 02/22/17 20:01 Dose: 80 mg Propofol (Diprivan) 30 mg IVP EDNOW ONE Stop: 02/22/17 20:32 Last Admin: 02/22/17 20:32 Dose: Not Given Departure - Departure Disposition: Home, Routine, Self-Care Clinical Impression: Hill Sachs deformity, right Shoulder dislocation Qualifiers: Encounter type: initial encounter Laterality: right Qualified Code(s): S43.004A - Unspecified dislocation of right shoulder joint, initial encounter Condition: Fair Instructions: Shoulder Dislocation (ED) Referrals: Patient,NotPresent [Unknown] - As per Instructions Huy Colindres MD [Medical Doctor] - As per Instructions
[2017-02-22] MEDS ORDERED: KETAMINE 100 MG/10 ML SYR IVP ONE ×2 (19:45→20:07)
[2017-02-22] MEDS ORDERED: PROPOFOL 200 MG/20 ML VIAL ONE (19:46)
[2017-02-22] MEDS ORDERED: HYDROCOD/APAP 5/325 PREPACK#6 BTL TAKEHOME ONE ×2 (20:14→22:46)
[2017-02-22] MEDS ORDERED: PROPOFOL 200 MG/20 ML VIAL IVP ONE (20:31)
[2017-02-22 23:00] VITALS: BP 121/75; PULSE 61; RESP 12; TEMP 98.8; O2SAT 95
== END 2017-02-22 23:00 | disposition home or self-care (01) ==
LOC: EDUNIT#
PROC: 0RSJXZZ Reposition Right Shoulder Joint, External Approach (ICD-10-PCS; principal; 2017-02-22)
DX: S43.004A Unspecified dislocation of right shoulder joint, initial encounter (principal); I10 Essential (primary) hypertension; J44.9 Chronic obstructive pulmonary disease, unspecified; Z87.891 Personal history of nicotine dependence; Z79.82 Long term (current) use of aspirin; W18.39XA Other fall on same level, initial encounter; Y92.010 Kitchen of single-family (private) house as the place of occurrence of the external cause
CPT/HCPCS: 23650; 73000; 73030; 99152; 99285; J2704

== ENCOUNTER 2017-04-24 04:50 | Inpatient (IN) | payer OTHER, MEDICARE ==
[2017-04-24] MEDS ORDERED: NS 1,000 ML IV ONE (04:55)
[2017-04-24] MEDS ORDERED: methylPREDNISolone SOD SUCC 500 MG in D5W 100 ML IV ONE (04:56)
[2017-04-24] MEDS ORDERED: IPRATROPIUM/ALBUTEROL 3 ML DEYVIAL IH ONE (04:56)
[2017-04-24] MEDS ORDERED: methylPREDNISolone SOD SUCC 125 MG/2 ML VIAL IVP ONE (04:56)
[2017-04-24] MEDS ORDERED: ONDANSETRON 4 MG/2 ML VIAL IVP ONE (04:58)
--- NOTE | 2017-04-24 05:06 | EDPHY ---
H & P HPI/ROS: HPI CHIEF COMPLAINT: Shortness of breath, respiratory distress HISTORY OF PRESENT ILLNESS: This patient 82-year-old female significant past medical history for COPD on 3 L to 3.5 L at home nasal cannula oxygen dependent , SVT, coronary disease with stent, hypertension, she presents emergency room with dyspnea worsening shortness of breath since 11:00 p.m. a.m.. She tells me over the past 24 hours she has had a cold with a cough with sputum production however tonight around 3:00 a.m. she had acutely worsening shortness of breath she tried using her inhaler at home but it did not help. Due to ongoing worsening shortness of breath she decided call 911. Frank galeas brought her to the emergency room she is in moderate amount of respiratory distress with decreased air movement bilaterally with wheezing with tachypnea in the 40s. She is auto-peep thing. She denies chest pain. She does have 1 word dyspnea. Past Medical History: COPD on oxygen, SVT, coronary artery disease, hypertension Past Surgical History: No recent surgical history Social History: Former smoker, denies drugs alcohol tobacco currently Family History: Noncontributory ROS REVIEW OF SYSTEMS: A comprehensive 10 point review of systems is otherwise negative aside from elements mentioned in the history of present illness. Exam Constitutional moderate amount of respiratory distress triage nursing summary reviewed, vital signs reviewed, awake/alert. Eyes normal conjunctivae and sclera, EOMI, PERRLA. HENT normal inspection, atraumatic, moist mucus membranes, no epistaxis, neck supple/ no meningismus, no raccoon eyes. Respiratory decreased breath sounds bilaterally, wheezing throughout all lung wen, also [place], tachypnea, respiratory distress Cardiovascular rate normal, regular rhythm, no murmur, no edema, distal pulses normal. Gastrointestinal soft, non-tender, no rebound, no guarding, normal bowel sounds, no distension, no pulsatile mass. Genitourinary no CVA tenderness. Musculoskeletal no midline vertebral tenderness, full range of motion, no calf swelling, no tenderness of extremities, no meningismus, good pulses, neurovascularly intact. Skin pink, warm, & dry, no rash, skin atraumatic. Neurologic awake, alert and oriented x 3, AAOx3, moves all 4 extremities equally, motor intact, sensory intact, CN II-XII intact, normal cerebellar, normal vision, normal speech. Psychiatric normal mood/affect. Heme/Lymph/Immune no lymphadenopathy. Differential Diagnosis: Includes but is not limited to in a particular order respiratory distress, hypoxic respiratory failure, hypercarbic respiratory failure, pneumonia, COPD exacerbation, acute coronary syndrome, dehydration, electrolyte disturbance Medical Decision Making: Plan for this patient patient will be placed on full customer engagement analyst, IV establishment, EKG, patient need full face BiPAP for respiratory support, IV Solu-Medrol as been ordered, IV Levaquin, IV fluid bolus , DuoNeb breathing treatment in line with BiPAP, ABG, blood work and reassessment. Re-evaluation: Critical Care: Total Critical Care Time Spent Managing this Patient: 65Minutes. This time was spent Exclusively with this patient. This Care was exclusive of procedures. The Organ System/life at risk was pulmonary This Patient was in Critical Condition because respiratory distress COPD exacerbation EKG interpretation by me on record in [facility] system. Impression time of EKG 5:23 a.m., sinus rhythm rate of 90 no acute ischemic change appreciated. CXR: One view: This shows COPD appearing lungs. No focal infiltrate. Breast implants present. Image interpreted by myself. [id number]: I did re-evaluate this patient this time she is hemodynamically stable on BiPAP. Blood work reviewed negative troponin nonischemic EKG. Chest x-ray shows no focal infiltrate. Here in emergency room she received IV fluid bolus, blood cultures, IV Levaquin, IV Solu-Medrol DuoNeb breathing treatment on full face BiPAP. Patient need to be admitted to the hospital for respiratory distress COPD exacerbation. I think pulmonary embolism is unlikely given the patient's clinical presentation of wheezing and picture for COPD. 1 word dyspnea, barrel chest, auto-peeping. Spoke with Dr. Lockwood who agrees to admit. This patient be admitted to step-down unit. She also received IV Zofran for nausea. She denies chest pain.. Source: Patient, EMS - Personal History Tetanus Vaccine Date: < 10 years - Medical/Surgical History Hx Asthma: No Hx Chronic Respiratory Disease: Yes Hx Diabetes: No Hx Cardiac Disease: Yes Hx Renal Disease: No Hx Cirrhosis: No Hx Alcoholism: No Hx HIV/AIDS: No Hx Splenectomy or Spleen Trauma: No Other PMH: pmh- COPD, HTN, SVT, PNA, high cholesterol,. psh- breast augmentation, tonsilectomy, appy, cardiac stent x1, tubal ligation - Social History Smoking Status: Former smoker Constitutional: Initial Vital Signs Temperature (C) 36.7 C 04/24/17 05:02 Heart Rate 79 04/24/17 05:02 Respiratory Rate 34 H 04/24/17 05:02 Blood Pressure 192/78 H 04/24/17 05:02 O2 Sat (%) 92 04/24/17 05:02 O2 Delivery Mode Nasal Cannula O2 (L/minute) 3.5 Allergies/Adverse Reactions: metformin [Metformin] Allergy (Severe, Verified 02/22/17 19:08) Intolerant Penicillins Allergy (Severe, Verified 02/22/17 19:08) Hives tiotropium bromide [From Spiriva with HandiHaler] Allergy (Severe, Verified 12/10 19:08) Hives Home Medications: Medication Instructions Recorded Atorvastatin Calcium [Lipitor 10 10 mg PO DAILY 02/29/16 mg (*)] Diltiazem Cd [Cardizem ER 120 MG 120 mg PO DAILY 02/29/16 (*)] Ipratropium [Atrovent Hfa (*)] 1 puffs IH DAILY PRN 03/31/16 Zolpidem Tartrate [Ambien 5MG (*)] 5 mg PO HS 03/31/16 rOPINIRole HCL [Requip 0.25mg (RX)] 0.25 mg PO HS 03/31/16 Albuterol [Proventil Inhaler HFA 1 puffs IH DAILY PRN 08/14/16 (*)] Fluticasone/Salmeter 250/50Mcg 1 puffs IH BID 08/14/16 [Advair 250/50 (*)] Acetaminophen [Tylenol 325mg (*)] 325 mg PO DAILY 04/24/17 Ascorbic Acid [Vitamin C 500 mg 500 mg PO DAILY 04/24/17 (*)] Cholecalciferol Vit D3 [Vitamin D3 1,000 units PO DAILY 04/24/17 (*)] Escitalopram Oxalate [Lexapro] 5 mg PO DAILY 04/24/17 Gabapentin [Neurontin 100 MG (*)] 100 mg PO BID 04/24/17 Losartan Potassium [Cozaar] 100 mg PO DAILY 04/24/17 Metoprolol Tartrate [Lopressor 50 50 mg PO DAILY 04/24/17 mg (*)] Medical Decision Making - Data Points Laboratory Results: Laboratory Results 04/24/17 04:57 04/24/17 04:57 Microbiology Results: MICROBIOLOGY 04/24/17 06:05 Blood Blood Culture - Preliminary Staphylococcus Epidermidis 04/24/17 06:05 Blood Blood Panel (PCR) - Final Staph Coagulase Negative 04/24/17 06:05 Blood Blood Culture - Preliminary Medications Given: Discontinued Medications Albuterol/Ipratropium (Duoneb) 3 ml IH EDNOW ONE Stop: 04/24/17 04:57 Last Admin: 04/24/17 05:10 Dose: 3 ml Sodium Chloride (Ns) 1,000 mls @ 0 mls/hr IV ONCE ONE PRN Reason: Wide Open Stop: 04/24/17 04:56 Last Admin: 04/24/17 05:26 Dose: 1,000 mls Methylprednisolone Sodium (Succinate 500 mg/ Dextrose) 100 mls @ 100 mls/hr IV EDNOW ONE Stop: 04/24/17 05:55 Last Admin: 04/24/17 06:29 Dose: Not Given Levofloxacin/Dextrose (Levaquin 750 Mg (Premix)) 150 mls @ 100 mls/hr IV EDNOW ONE PRN Reason: Protocol Stop: 04/24/17 07:26 Last Admin: 04/24/17 06:16 Dose: 150 mls Levofloxacin/Dextrose (Levaquin 500 Mg (Premix)) 100 mls @ 100 mls/hr IV DAILY CHE PRN Reason: Protocol Stop: 05/25/17 08:59 Last Admin: 04/25/17 10:52 Dose: Not Given Methylprednisolone Sodium Succinate (Solu-Medrol) 125 mg IVP EDNOW ONE Stop: 04/24/17 04:57 Last Admin: 04/24/17 05:27 Dose: 125 mg Methylprednisolone Sodium Succinate (Solu-Medrol) 60 mg IVP Q6HRS CHE Stop: 10/21/17 11:59 Last Admin: 04/25/17 05:16 Dose: 60 mg Ondansetron HCl (Zofran) 4 mg IVP EDNOW ONE Stop: 04/24/17 04:59 Last Admin: 04/24/17 05:27 Dose: 4 mg Departure - Departure Disposition: [facility] Acute Clinical Impression: COPD exacerbation Condition: Serious
[2017-04-24 05:07] LABS: % IMMATURE GRANULYOCYTES 1.7 % (0.0-1.1); ABSOLUTE IMMATURE GRANULOCYTES 0.18 10^3/uL (0.00-0.10); ADD DIFF? NO; ADD MORPH? NO; ADD SCAN? NO; ATYPICAL LYMPHOCYTE FLAG 10 (0-99); FRAGMENT RBC FLAG 0 (0-99); HEMATOCRIT 40.7 % (38.0-47.0); HEMOGLOBIN 13.5 g/dL (12.6-16.3); LEFT SHIFT FLG 10 (0-99); LIPEMIA HEMOLYSIS FLAG 80 (0-99); MEAN CELL HEMOGLOBIN 31.2 pg (27.9-34.1); MEAN CELL HEMOGLOBIN CONCENTR. 33.2 g/dL (32.4-36.7); MEAN PLATELET VOLUME 9.5 fL (8.7-11.7); PLATELET CLUMPS FLAG 0 (0-99); PLATELET COUNT 259 10^3/uL (150-400); RED BLOOD CELL COUNT 4.33 10^6/uL (4.18-5.33)
[2017-04-24 05:19] LABS: ALANINE AMINOTRANSFERASE 32 IU/L (9-52); ALBUMIN 4.2 g/dL (3.5-5.0); ALKALINE PHOSPHATASE 96 IU/L (38-126); ANION GAP 11 mEq/L (8-16); ASPARTATE AMINOTRANSFERASE 21 IU/L (14-46); BILIRUBIN,TOTAL 0.7 mg/dL (0.1-1.4); BILIRUBIN-CONJUGATED 0.4 mg/dL (0.0-0.5); BILIRUBIN-UNCONJUGATED 0.3 mg/dL (0.0-1.1); CALCIUM 8.8 mg/dL (8.5-10.4); CARBON DIOXIDE 31 mEq/l (22-31); CHLORIDE 95 mEq/L (97-110); CREATININE 0.6 mg/dL (0.6-1.0); GLOMERULAR FILTRATION RATE > 60; GLUCOSE 111 mg/dL (70-100); MAGNESIUM 1.6 mg/dL (1.6-2.3); POTASSIUM 3.9 mEq/L (3.5-5.2); SODIUM 137 mEq/L (134-144); TOTAL PROTEIN 6.6 g/dL (6.3-8.2)
[2017-04-24 05:20] LABS: APTT 25.8 SEC (23.0-38.0); PROTIME(PATIENT) 13.1 SEC (12.0-15.0)
--- NOTE | 2017-04-24 05:26 | CPEKG ---
Heart Rate: 90 RR Interval: 667 P-R Interval: 140 QRSD Interval: 76 QT Interval: 352 QTC Interval: 431 P Gray: 68 QRS Gray: -24 T Wave Gray: 59 EKG Severity - OTHERWISE NORMAL ECG - EKG Impression: SINUS RHYTHM EKG Impression: BORDERLINE LEFT AXIS DEVIATION Electronically Signed By: Trung Pruett 24-Apr-2017 07:31:02
[2017-04-24 05:31] LABS: CREATINE KINASE-MB FRACTION 1.51 ng/mL (0-3.19); TROPONIN I < 0.012 ng/mL (0-0.034)
[2017-04-24 05:45] LABS: BASE EXCESS 3.3 mEq/L (-2.5-2.5); BICARBONATE 27 mEq/L (22-26); BIPAP YES; MEASURED OXYGEN SATURATION 98 % (92-95); O2 CONCENTRATIION 35 % (0-100); P/F RATIO 277 RATIO; PCO2 40 mmHg (34-38); PO2 97 mmHg (65-75); TCO2 28 mEq/L (23-27)
[2017-04-24 05:46] LABS: EXP PRESSURE 5; INSP PRESSURE 10
[2017-04-24] MEDS ORDERED: ALBUTEROL 3 ML DEYVIAL IH PRN (06:13)
[2017-04-24] MEDS ORDERED: ONDANSETRON 4 MG/2 ML VIAL IVP PRN (06:13)
[2017-04-24] MEDS ORDERED: HYDROCODONE/APAP 5/325 TAB PO PRN (06:13)
[2017-04-24] MEDS ORDERED: ONDANSETRON DISINTEGRATING 4 MG TAB PO PRN (06:13)
[2017-04-24] MEDS ORDERED: ACETAMINOPHEN 325 MG TAB PO PRN (06:13)
[2017-04-24] MEDS ORDERED: ALBUTEROL 3 ML DEYVIAL ONE (06:14)
--- NOTE | 2017-04-24 07:00 | PDGENHP ---
History and Physical - Chief Complaint dyspnea - History of Present Illness patient is an 82-year-old female with COPD, chronic respiratory failure on 3 L NC, CAD with previous PCI, hypertension presents to the ED with complaint of wheezing and shortness of breath. Patient states for the past 3 days she has been having upper respiratory cold-like symptoms, with cough nasal congestion and sneezing. Cough is occasionally productive of clear sputum , denies associated fevers or chills, lightheadedness or chest pain. This evening at around 11:00 p.m., patient became acutely short of breath with significant wheezing. Again denies any chest pain, palpitations, lightheadedness. Symptoms did not improve over the next hour, so she called EMS and was transported to the ED for further evaluation. Denies any recent travel, sick contacts. Patient was last admitted in january for mild copd exacerbation which improved with 5 day course of prednisone. On arrival to the ED, patient was afebrile, but tachypneic and tachycardic, in moderate respiratory distress. She was placed on BIPAP, given IV steroids and nebs with improvement in respiratory status. Labs revealed mild leukocytosis, ABG was largely unremarkable, BMP wnl, troponin negative and BNP mildly elevated. CXR revealed possible lower lobe infiltrates. She was cultured, initiated on antibiotics and admitted for further management. History Information - Allergies/Home Medication List Allergies/Adverse Reactions: metformin [Metformin] Allergy (Severe, Verified 02/22/17 19:08) Intolerant Penicillins Allergy (Severe, Verified 02/22/17 19:08) Hives tiotropium bromide [From Spiriva with HandiHaler] Allergy (Severe, Verified 12/10 19:08) Hives Home Medications: Atorvastatin Calcium [Lipitor 10 mg (*)] 10 mg PO DAILY 02/29/16 [Last Taken ] Diltiazem Cd [Cardizem ER 120 MG (*)] 120 mg PO DAILY 02/29/16 [Last Taken 02/09] Ipratropium [Atrovent Hfa (*)] 1 puffs IH DAILY PRN 03/31/16 [Last Taken Unknown ] Zolpidem Tartrate [Ambien 5MG (*)] 5 mg PO HS PRN 03/31/16 [Last Taken 02/08/17] rOPINIRole HCL [Requip 0.25mg (RX)] 0.25 mg PO HS 03/31/16 [Last Taken 02/09/17] Albuterol [Proventil Inhaler HFA (*)] 1 puffs IH DAILY PRN 08/14/16 [Last Taken Unknown] Fluticasone/Salmeter 250/50Mcg [Advair 250/50 (*)] 1 puffs IH BID 08/14/16 [ Last Taken 02/09/17] Acetaminophen [Tylenol 325mg (*)] 325 mg PO DAILY 04/24/17 [Last Taken 04/23/17] Ascorbic Acid [Vitamin C 500 mg (*)] 500 mg PO DAILY 04/24/17 [Last Taken Unknown] Cholecalciferol Vit D3 [Vitamin D3 (*)] 1,000 units PO DAILY 04/24/17 [Last Taken Unknown] Gabapentin 04/24/17 [Last Taken Unknown] Lexapro 04/24/17 [Last Taken Unknown] Losartan Potassium [Cozaar] 100 mg PO DAILY 04/24/17 [Last Taken 04/23/17] Metoprolol Tartrate 04/24/17 [Last Taken Unknown] I have personally reviewed and updated: family history, medical history, social history, surgical history - Past Medical History Additional medical history: COPD. chronic respiratory failure on 3-4L NC continuously. CAD with previous PCI. HTN. Osteoarthritis. Restless leg syndrome - Surgical History Additional surgical history: tonsillectomy. tubal ligation. r shoulder arthroscopy - Family History Positive for: non-pertinent - Social History Smoking Status: Former smoker (quit about 20 years ago) Alcohol Use: None Drug Use: None Additional social history: Lives with her , is independent at baseline. Review of Systems ROS: 10pt was reviewed & negative except for what was stated in HPI & below Physical Exam Temp Pulse Resp BP Pulse Ox 36.7 C 84 24 H 143/73 H 98 04/24/17 05:02 04/24/17 06:18 04/24/17 06:18 04/24/17 06:18 04/24/17 06:18 Constitutional: no apparent distress, appears nourished, not in pain Eyes: PERRL, anicteric sclera, EOMI Ears, Nose, Mouth, Throat: hearing normal, ears appear normal, no oral mucosal ulcers, dry mucous membranes Cardiovascular: regular rate and rhythym, no murmur, rub, or gallop, pulses symmetric bilaterally, No JVD, No edema Peripheral Pulses: 2+: dorsalis-pedis (R), dorsalis-pedis (L) Respiratory: reduced air movement, expiratory wheeze, other (on bipap, using accessory muscles of respiration) Gastrointestinal: normoactive bowel sounds, soft, non-tender abdomen, no palpable masses, No guarding, No rebound Genitourinary: no bladder fullness, no bladder tenderness Skin: warm, normal color, no rashes or abrasions, no fluctuance, no induration, No mottled Musculoskeletal: full muscle strength, no muscle tenderness, normal joint ROM, no joint effusions Neurologic: AAOx3, sensation intact bilaterally, CN II-XII Intact, No weakness, No numbness Psychiatric: interacting appropriately, not anxious, not encephalopathic, thought process linear Lab Data & Imaging Review 04/24/17 04:57 04/24/17 04:57 WBC 10.86 10^3/uL (3.80-9.50) H 04/24/17 04:57 RBC 4.33 10^6/uL (4.18-5.33) 04/24/17 04:57 Hgb 13.5 g/dL (12.6-16.3) 04/24/17 04:57 Hct 40.7 % (38.0-47.0) 04/24/17 04:57 MCV 94.0 fL (81.5-99.8) 04/24/17 04:57 MCH 31.2 pg (27.9-34.1) 04/24/17 04:57 MCHC 33.2 g/dL (32.4-36.7) 04/24/17 04:57 RDW 13.0 % (11.5-15.2) 04/24/17 04:57 Plt Count 259 10^3/uL (150-400) 04/24/17 04:57 MPV 9.5 fL (8.7-11.7) 04/24/17 04:57 Neut % (Auto) 82.6 % (39.3-74.2) H 04/24/17 04:57 Lymph % (Auto) 8.1 % (15.0-45.0) L 04/24/17 04:57 T[place]air % (Auto) 6.8 % (4.5-13.0) 04/24/17 04:57 Eos % (Auto) 0.4 % (0.6-7.6) L 04/24/17 04:57 Baso % (Auto) 0.4 % (0.3-1.7) 04/24/17 04:57 Nucleat RBC Rel Count 0.0 % (0.0-0.2) 04/24/17 04:57 Absolute Neuts (auto) 8.98 10^3/uL (1.70-6.50) H 04/24/17 04:57 Absolute Lymphs (auto) 0.88 10^3/uL (1.00-3.00) L 04/24/17 04:57 Absolute Monos (auto) 0.74 10^3/uL (0.30-0.80) 04/24/17 04:57 Absolute Eos (auto) 0.04 10^3/uL (0.03-0.40) 04/24/17 04:57 Absolute Basos (auto) 0.04 10^3/uL (0.02-0.10) 04/24/17 04:57 Absolute Nucleated RBC 0.00 10^3/uL (0-0.01) 04/24/17 04:57 Immature Gran % 1.7 % (0.0-1.1) H 04/24/17 04:57 Immature Gran # 0.18 10^3/uL (0.00-0.10) H 04/24/17 04:57 PT 13.1 SEC (12.0-15.0) 04/24/17 04:57 INR 1.00 (0.83-1.16) 04/24/17 04:57 APTT 25.8 SEC (23.0-38.0) 04/24/17 04:57 Puncture Site LEFT RADIAL 04/24/17 05:30 Patient Temperature 37.0 DEGREES 04/24/17 05:30 pCO2 40 mmHg (34-38) H 04/24/17 05:30 pO2 97 mmHg (65-75) H 04/24/17 05:30 Total CO2 28 mEq/L (23-27) H 04/24/17 05:30 ABG pH 7.45 (7.35-7.45) 04/24/17 05:30 ABG PO2/FiO2 Ratio 277 RATIO 04/24/17 05:30 ABG HCO3 27 mEq/L (22-26) H 04/24/17 05:30 ABG O2 Saturation 98 % (92-95) H 04/24/17 05:30 ABG Base Excess 3.3 mEq/L (-2.5-2.5) H 04/24/17 05:30 O2 Concentration % 35 % (0-100) 04/24/17 05:30 Expiratory Pressure 5 04/24/17 05:30 Inspiratory Pressure 10 04/24/17 05:30 Mode BiPAP YES 04/24/17 05:30 Sodium 137 mEq/L (134-144) 04/24/17 04:57 Potassium 3.9 mEq/L (3.5-5.2) 04/24/17 04:57 Chloride 95 mEq/L (97-110) L 04/24/17 04:57 Carbon Dioxide 31 mEq/l (22-31) 04/24/17 04:57 Anion Gap 11 mEq/L (8-16) 04/24/17 04:57 BUN 13 mg/dL (7-23) 04/24/17 04:57 Creatinine 0.6 mg/dL (0.6-1.0) 04/24/17 04:57 Estimated GFR > 60 04/24/17 04:57 Glucose 111 mg/dL (70-100) H 04/24/17 04:57 Calcium 8.8 mg/dL (8.5-10.4) 04/24/17 04:57 Magnesium 1.6 mg/dL (1.6-2.3) 04/24/17 04:57 Total Bilirubin 0.7 mg/dL (0.1-1.4) 04/24/17 04:57 Conjugated Bilirubin 0.4 mg/dL (0.0-0.5) 04/24/17 04:57 Unconjugated Bilirubin 0.3 mg/dL (0.0-1.1) 04/24/17 04:57 AST 21 IU/L (14-46) 04/24/17 04:57 ALT 32 IU/L (9-52) 04/24/17 04:57 Alkaline Phosphatase 96 IU/L (38-126) 04/24/17 04:57 Creatine Kinase 38 IU/L (0-156) 04/24/17 04:57 CK-MB (CK-2) Fraction 1.51 ng/mL (0-3.19) 04/24/17 04:57 Troponin I < 0.012 ng/mL (0-0.034) 04/24/17 04:57 NT-Pro-B Natriuret Pep 710 pg/mL (0-450) H 04/24/17 04:57 Total Protein 6.6 g/dL (6.3-8.2) 04/24/17 04:57 Albumin 4.2 g/dL (3.5-5.0) 04/24/17 04:57 Lipase 94.0 IU/L (23-300) 04/24/17 04:57 Visualized and Interpreted Chest x-ray results: Yes Chest X-Ray results: infiltrate ( at bases b/l) Visualized and Interpreted EKG results: Yes EKG Interpretation: Positive for: normal sinsus rhythm Assessment & Plan Assessment: Patient is an 82 year old female with COPD, chronic resp failure, CAD, HTN who presents with acute respiratory failure, ED evaluation appears consistent with an COPD exacerbation, likely provoked by URI vs acute pneumonia. Plan: # acute copd exacerbation On arrival to the ED, patient was in moderate respiratory distress with tachypnea, accessory muscle use, tachycardia. Exam revealed diffuse wheezing. Presentation is consistent with an acute copd exacerbation. Differential could also include acs, pe; both appear unlikely, initial troponin is negative, EKG does not reveal any obvious signs of ischemia and she has no risk factors for DVT/PE. - cont solu-medrol 60 mg IV q6h - duonebs q6h standing, with albuterol neb q2h prn - continue BIPAP support, wean as tolerated - check TTE, trend troponins to r/o cardiac etiology # URI Patient describes three days of congestion, URI type symptoms, but describes clear sputum with cough. CXR official read pending, possible lower lobe infiltrate. Will f/u cxr, continue levaquin for empiric treatment of bronchitis vs early pneumonia. - f/u blood cultures - check sputum culture, respiratory viral panel # CAD Denies chest pain, no ischemic changes on ekg, troponin. # OA Cont home meds. # dispo: Admit to inpatient service for likely > 2 [place] stay for moderate resp distress # gen: cardiac diet DVT ppx: lovenox DNR, but ok with intubation
--- NOTE | 2017-04-24 10:18 | ECHO ---
[id number] + + [address] : : [place] [address] : : [phone] + + Adult Echocardiographic Report + -------+ :Name: JANE SANDHUNeva Date: 04/24/2017 08:14 AM : : Hospital Admission Number: [id number] Locat ion: ER: :: 1935 Gender: Female Height: 60 in : :Age: 82 yrs Race: WH Weight: 120 l b : :Reason For Study: Eval LV Fx : : BSA: 1.5 mete rs2 : :History: COPD : + -------+ MMode/2D Measurements \T\ Calculations IVSd: 0.91 cm LVIDd: 3.6 cm FS: 38.1 % Ao root diam: 2.6 cm LVPWd: 0.87 cm LVIDs: 2.2 cm EDV(Teich): 54.4 ml ACS: 1.5 cm ESV(Teich): 16.8 ml EF(Teich): 69.2 % Normal Measurement Values: + + :LVIDd (3.5-5.7cm) IVSd (0.6-1.1cm) LVPWd (0.6-1.1cm) Aortic Root (2.0-3.7cm)Left Atrium (1.5-4.0cm): :LV Vol(d) (76-115ml) LV Vol(s) (29-48ml) Ejec Fraction (50-65%)PV Tam (0.6- 1.2m/s) TV Tam (0.4-1.0m/s) : :MV E Tam (0.8-1.0m/s)MV A Tam (0.3-1.0m/s)LVOT Tam (0.7-1.2m/s) Asc Ao Tam ( 0.9-1.8m/s) : + + Doppler Measurements \T\ Calculations MV E max tam: Ao V2 max: LV V1 max: PA V2 max: 67.1 cm/sec 177.5 cm/sec 70.6 cm/sec 114.0 cm/sec MV A max tam: Ao max PG: LV V1 max PG: PA max P.3 cm/sec 12.6 mmHg 2.0 mmHg 5.2 mmHg MV E/A: 0.72 TR max tam: 308.0 cm/sec TR max P.9 mmHg RAP systole: 10.0 mmHg RVSP(TR): 47.9 mmHg Left Ventricle The left ventricle is normal in size. There is normal left ventricular wall thickness. The left ventricular ejection fraction is normal. There is Doppler evidence for diastolic dysfunction. Ejection Fraction = 69%. The left ventricular wall motion is normal. Right Ventricle The right ventricle is normal in size and function. Atria The left atrial size is normal. Right atrial size is normal. Mitral Valve The mitral valve is normal. There is no evidence of mitral valve prolapse. There is no mitral valve stenosis. There is mild mitral regurgitation. Tricuspid Valve There is mild to moderate tricuspid regurgitation. Right ventricular systolic pressure is 48mmHg. There is Doppler evidence for moderate pulmonary hypertension. Aortic Valve There is mild aortic valve calcification. There is no aortic stenosis. Trace to mild aortic regurgitation. Pulmonic Valve The pulmonic valve is normal in structure and function. There is no pulmonic valvular regurgitation. Great Vessels The aortic root is normal size. Pericardium/Pleural There is no pericardial effusion. Conclusion A complete two-dimensional transthoracic echocardiogram was performed (2D, M-mode, Doppler and color flow Doppler). The study was technically difficult. The left ventricular ejection fraction is normal. There is Doppler evidence for diastolic dysfunction. Ejection Fraction = 69%. The left ventricular wall motion is normal. The left atrial size is normal. The mitral valve is normal. There is mild mitral regurgitation. There is mild to moderate tricuspid regurgitation. Right ventricular systolic pressure is 48mmHg. There is Doppler evidence for moderate pulmonary hypertension. There is mild aortic valve calcification. Trace to mild aortic regurgitation. There is no pericardial effusion. Final Reading Physician: Moncho Pinon signed on 04/24/2017 10:16 AM Ordering Physician: Stephanie Lockwood Performed By: Tre Villegas, CS
[2017-04-24] MEDS: methylPREDNISolone SOD SUCC 125 MG/2 ML VIAL IVP SCH ×2 (13:01→19:36)
[2017-04-24] MEDS ORDERED: ALBUTEROL 60 PUFFS/8 GM MDI IH PRN (14:25)
[2017-04-24] MEDS ORDERED: IPRATROPIUM HFA INHALER IH PRN (14:25)
[2017-04-24] MEDS: IPRATROPIUM/ALBUTEROL 3 ML DEYVIAL IH SCH ×3 (14:57→20:58)
[2017-04-24] MEDS: DILTIAZEM CD 120 MG CAP PO SCH (15:27)
[2017-04-24] MEDS: ENOXAPARIN 40 MG/0.4 ML SYR SC SCH (15:27)
[2017-04-24] MEDS: GABAPENTIN 100 MG CAP PO SCH (20:01)
[2017-04-24] MEDS: ZOLPIDEM TARTRATE 5 MG TAB PO SCH (20:01)
[2017-04-24] MEDS: FLUTICASONE/SALMETER 250/50MCG DISKUS IH SCH (20:58)
[2017-04-25] MEDS: methylPREDNISolone SOD SUCC 125 MG/2 ML VIAL IVP SCH ×2 (00:03→05:16)
[2017-04-25] MEDS: IPRATROPIUM/ALBUTEROL 3 ML DEYVIAL IH SCH ×4 (05:56→21:26)
[2017-04-25] MEDS: ATORVASTATIN CALCIUM 10 MG TAB PO SCH (07:51)
[2017-04-25] MEDS: ENOXAPARIN 40 MG/0.4 ML SYR SC SCH (07:51)
[2017-04-25] MEDS: DILTIAZEM CD 120 MG CAP PO SCH (07:51)
[2017-04-25] MEDS: LOSARTAN POTASSIUM 50 MG TAB PO SCH (07:54)
[2017-04-25] MEDS: METOPROLOL TARTRATE 50 MG TAB PO SCH (07:54)
[2017-04-25] MEDS: CHOLECALCIFEROL VIT D3 1,000 UNITS TAB PO SCH (07:55)
[2017-04-25] MEDS: ESCITALOPRAM OXALATE 10 MG TAB PO SCH (07:56)
[2017-04-25] MEDS: ACETAMINOPHEN 325 MG TAB PO SCH (07:56)
[2017-04-25] MEDS: GABAPENTIN 100 MG CAP PO SCH ×2 (07:57→21:34)
[2017-04-25] MEDS: ASCORBIC ACID 500 MG TAB PO SCH (07:57)
[2017-04-25] MEDS ORDERED: NON-FORMULARY NEW DRUG (Losartan Potassium [Cozaar] 100 MG) PO SCH (09:00)
[2017-04-25] MEDS ORDERED: levOFLOXACIN 500 MG/DEXTROSE 100 ML IV SCH (09:00)
[2017-04-25] MEDS ORDERED: NON-FORMULARY NEW DRUG (Escitalopram Oxalate [Lexapro] 5 MG) PO SCH (09:00)
--- NOTE | 2017-04-25 10:00 | HOSPPROG ---
Hospitalist Progress Note Assessment/Plan: 82 yo F w copd a/w increased work of breathing, found to be influenza B postive copd exacerbation: change steroids to po pred cont MDI OK to dc abx given that influenza is likely trigger cxr on admit w no infiltrate (interp by me) influenza B: start tamiflu + blood cx: pattern of single blood cx + for CoNS most c/w contaminant repeat blood cx hold abx proph: LMWH dispo: inpt Subjective: influenza B +. states breathing a bit better, still worse that baseline Objective: Vital Signs Temp Pulse Resp BP Pulse Ox 36.7 C 97 21 H 144/130 H 93 04/25/17 07:58 04/25/17 07:58 04/25/17 07:58 04/25/17 07:58 04/25/17 07:58 Microbiology 04/25/17 08:05 Respiratory Panel (PCR) - Final Nasal, Sinus - Swab Influenza Virus Type B 04/24/17 12:45 - Final Sputum, Expectorated 04/24/17 04/25/17 04/26/17 05:59 05:59 05:59 Intake Total 1600 Balance 1600 PT 13.1 SEC (12.0-15.0) 04/24/17 04:57 INR 1.00 (0.83-1.16) 04/24/17 04:57 - Physical Exam Constitutional: no apparent distress, appears nourished Eyes: PERRL, anicteric sclera Ears, Nose, Mouth, Throat: moist mucous membranes, hearing normal Cardiovascular: regular rate and rhythym, no murmur, rub, or gallop, No tachycardia Respiratory: no respiratory distress, other (distant breath sounds, decreased air movement, scattered wheezes) Gastrointestinal: normoactive bowel sounds, soft, non-tender abdomen Genitourinary: no bladder fullness, No fontaine in urethra Skin: warm, normal color Musculoskeletal: full muscle strength, no muscle tenderness Neurologic: AAOx3 ICD10 Worksheet Patient Problems: Problems Problem Status Onset COPD exacerbation Acute Atrial fibrillation Acute COPD exacerbation Acute Chronic Disease Mgmt/Transitional Care Acute Coronary artery disease Acute Elevated troponin Acute Hill Sachs deformity, right Acute Hyperglycemia Acute Infiltrate of lung present on imaging of chest Acute Shoulder dislocation Acute
[2017-04-25] MEDS: FLUTICASONE/SALMETER 250/50MCG DISKUS IH SCH ×2 (10:49→21:26)
[2017-04-25] MEDS: predniSONE 20 MG TAB PO SCH (11:01)
[2017-04-25] MEDS: OSELTAMIVIR PHOSPHATE 75 MG CAP PO SCH ×2 (11:02→18:23)
[2017-04-25] MEDS: ZOLPIDEM TARTRATE 5 MG TAB PO SCH (21:34)
[2017-04-26] MEDS: IPRATROPIUM/ALBUTEROL 3 ML DEYVIAL IH SCH ×4 (06:20→20:37)
[2017-04-26] MEDS ORDERED: DILTIAZEM 25 MG/5 ML VIAL IVP ONE ×3 (07:44→08:15)
--- NOTE | 2017-04-26 07:45 | CPEKG ---
Heart Rate: 156 RR Interval: 385 QRSD Interval: 72 QT Interval: 272 QTC Interval: 438 QRS [place]: -33 T Wave [place]: 114 EKG Severity - ABNORMAL ECG - EKG Impression: ATRIAL FIBRILLATION WITH RAPID V-RATE EKG Impression: LEFT AXIS DEVIATION EKG Impression: LOW VOLTAGE IN FRONTAL LEADS EKG Impression: REPOLARIZATION ABNORMALITY, PROB RATE RELATED Electronically Signed By: Rj Jurado 26-Apr-2017 08:59:27
[2017-04-26] MEDS ORDERED: DILTIAZEM HCL/D5W 125 ML IV SCH (08:00)
[2017-04-26] MEDS ORDERED: DILTIAZEM 125 MG in D5W 125 ML IV SCH (08:00)
[2017-04-26 08:08] LABS: % IMMATURE GRANULYOCYTES 0.5 % (0.0-1.1); ABSOLUTE IMMATURE GRANULOCYTES 0.07 10^3/uL (0.00-0.10); ADD DIFF? NO; ADD MORPH? NO; ADD SCAN? NO; ATYPICAL LYMPHOCYTE FLAG 10 (0-99); FRAGMENT RBC FLAG 0 (0-99); HEMATOCRIT 39.4 % (38.0-47.0); HEMOGLOBIN 12.8 g/dL (12.6-16.3); LEFT SHIFT FLG 0 (0-99); LIPEMIA HEMOLYSIS FLAG 80 (0-99); MEAN CELL HEMOGLOBIN 30.5 pg (27.9-34.1); MEAN CELL HEMOGLOBIN CONCENTR. 32.5 g/dL (32.4-36.7); MEAN PLATELET VOLUME 9.4 fL (8.7-11.7); PLATELET CLUMPS FLAG 10 (0-99); PLATELET COUNT 239 10^3/uL (150-400); RED BLOOD CELL COUNT 4.19 10^6/uL (4.18-5.33); RED CELL DISTRIBUTION WIDTH 13.2 % (11.5-15.2)
[2017-04-26] MEDS: FLUTICASONE/SALMETER 250/50MCG DISKUS IH SCH ×2 (08:18→20:39)
[2017-04-26 08:23] LABS: ANION GAP 11 mEq/L (8-16); CALCIUM 8.9 mg/dL (8.5-10.4); CARBON DIOXIDE 31 mEq/l (22-31); CHLORIDE 97 mEq/L (97-110); CREATININE 0.6 mg/dL (0.6-1.0); GLOMERULAR FILTRATION RATE > 60; GLUCOSE 195 mg/dL (70-100); POTASSIUM 3.7 mEq/L (3.5-5.2); SODIUM 139 mEq/L (134-144)
[2017-04-26] MEDS: ALBUTEROL 200 PUFFS/18 GM MDI IH PRN (08:24)
[2017-04-26 08:35] LABS: TROPONIN I < 0.012 ng/mL (0-0.034)
[2017-04-26] MEDS ORDERED: DILTIAZEM 25 MG/5 ML VIAL IVP SCH (09:15)
[2017-04-26] MEDS: DILTIAZEM CD 120 MG CAP PO SCH (09:19)
[2017-04-26] MEDS: ESCITALOPRAM OXALATE 10 MG TAB PO SCH (09:19)
[2017-04-26] MEDS: ACETAMINOPHEN 325 MG TAB PO SCH (09:22)
[2017-04-26] MEDS: METOPROLOL TARTRATE 50 MG TAB PO SCH (09:24)
[2017-04-26] MEDS: CHOLECALCIFEROL VIT D3 1,000 UNITS TAB PO SCH (09:25)
[2017-04-26] MEDS: ATORVASTATIN CALCIUM 10 MG TAB PO SCH (09:25)
[2017-04-26] MEDS: ENOXAPARIN 40 MG/0.4 ML SYR SC SCH (09:26)
[2017-04-26] MEDS: ASCORBIC ACID 500 MG TAB PO SCH (09:26)
[2017-04-26] MEDS: LOSARTAN POTASSIUM 50 MG TAB PO SCH (09:26)
[2017-04-26] MEDS: GABAPENTIN 100 MG CAP PO SCH ×2 (09:26→21:12)
[2017-04-26] MEDS: predniSONE 20 MG TAB PO SCH (09:26)
[2017-04-26] MEDS: OSELTAMIVIR 6 MG/ML UDSYR PO SCH ×2 (10:24→17:46)
[2017-04-26] MEDS: OSELTAMIVIR PHOSPHATE 75 MG CAP PO SCH (10:25)
--- NOTE | 2017-04-26 12:26 | HOSPPROG ---
Hospitalist Progress Note Assessment/Plan: 82 yo F w copd a/w increased work of breathing, found to be influenza B postive copd exacerbation: change steroids to po pred cont MDI OK to dc abx given that influenza is likely trigger cxr on admit w no infiltrate (interp by me) she is still tight and wheezy although improved by exam and symptoms will procedd w prolonged steroid taper AF: has had AF in past and recenty admit w suspected, not proven AF has been on eliquis in past w no issues low hasbled score, high chadsvasc start eliquis already on two peter agents influenza B: start tamiflu + blood cx: pattern of single blood cx + for CoNS most c/w contaminant repeat blood cx hold abx proph: eliquis dispo: inpt Subjective: rapid AF this AM, now resolved. ekg and telemetry interp by me. case d/w nataliya, cardiology [employer] Objective: Vital Signs Temp Pulse Resp BP Pulse Ox 36.5 C 83 18 118/67 94 04/26/17 09:30 04/26/17 12:02 04/26/17 12:02 04/26/17 10:28 04/26/17 12:02 Microbiology 04/24/17 12:45 - Final Sputum, Expectorated Sputum Culture - Final 04/25/17 08:05 Respiratory Panel (PCR) - Final Nasal, Sinus - Swab Influenza Virus Type B Laboratory Results 04/26/17 07:50 04/26/17 07:50 04/25/17 04/26/17 04/27/17 05:59 05:59 05:59 Intake Total 1600 400 Output Total 1 300 Balance 1600 399 -300 PT 13.1 SEC (12.0-15.0) 04/24/17 04:57 INR 1.00 (0.83-1.16) 04/24/17 04:57 - Physical Exam Constitutional: no apparent distress, appears nourished Eyes: PERRL, anicteric sclera, EOMI Ears, Nose, Mouth, Throat: moist mucous membranes, hearing normal Cardiovascular: regular rate and rhythym, no murmur, rub, or gallop, No systolic murmur Respiratory: no respiratory distress, no rales or rhonchi Gastrointestinal: normoactive bowel sounds, soft, non-tender abdomen Genitourinary: No fontaine in urethra Skin: warm Musculoskeletal: full muscle strength, no muscle tenderness Neurologic: AAOx3, sensation intact bilaterally ICD10 Worksheet Patient Problems: Problems Problem Status Onset COPD exacerbation Acute Atrial fibrillation Acute COPD exacerbation Acute Chronic Disease Mgmt/Transitional Care Acute Coronary artery disease Acute Elevated troponin Acute Hill Sachs deformity, right Acute Hyperglycemia Acute Infiltrate of lung present on imaging of chest Acute Shoulder dislocation Acute
[2017-04-26] MEDS: ZOLPIDEM TARTRATE 5 MG TAB PO SCH (21:12)
[2017-04-26] MEDS: APIXABAN 2.5 MG TAB PO SCH (21:13)
[2017-04-27] MEDS ORDERED: DILTIAZEM 125 MG in D5W 125 ML IV SCH (03:30)
[2017-04-27] MEDS: IPRATROPIUM/ALBUTEROL 3 ML DEYVIAL IH SCH ×4 (03:32→20:34)
[2017-04-27] MEDS: ALBUTEROL 200 PUFFS/18 GM MDI IH PRN ×2 (03:41→16:50)
[2017-04-27] MEDS ORDERED: DILTIAZEM 25 MG/5 ML VIAL IVP ONE (04:00)
[2017-04-27] MEDS: LORazepam 0.5 MG TAB PO PRN ×2 (04:00→08:26)
[2017-04-27] MEDS ORDERED: methylPREDNISolone SOD SUCC 125 MG/2 ML VIAL IVP ONE (04:30)
[2017-04-27] MEDS: predniSONE 20 MG TAB PO SCH (08:13)
[2017-04-27] MEDS: ASCORBIC ACID 500 MG TAB PO SCH (08:13)
[2017-04-27] MEDS: ATORVASTATIN CALCIUM 10 MG TAB PO SCH (08:13)
[2017-04-27] MEDS: OSELTAMIVIR 6 MG/ML UDSYR PO SCH ×2 (08:13→18:35)
[2017-04-27] MEDS: GABAPENTIN 100 MG CAP PO SCH ×2 (08:16→21:25)
[2017-04-27] MEDS: CHOLECALCIFEROL VIT D3 1,000 UNITS TAB PO SCH (08:17)
[2017-04-27] MEDS: APIXABAN 2.5 MG TAB PO SCH ×2 (08:17→21:25)
[2017-04-27] MEDS: LOSARTAN POTASSIUM 50 MG TAB PO SCH (08:17)
[2017-04-27] MEDS: METOPROLOL TARTRATE 50 MG TAB PO SCH (08:17)
[2017-04-27] MEDS: ACETAMINOPHEN 325 MG TAB PO SCH (08:18)
[2017-04-27] MEDS: DILTIAZEM CD 120 MG CAP PO SCH (08:18)
[2017-04-27] MEDS: ESCITALOPRAM OXALATE 10 MG TAB PO SCH (08:26)
[2017-04-27] MEDS: FLUTICASONE/SALMETER 250/50MCG DISKUS IH SCH ×2 (08:27→20:34)
[2017-04-27] MEDS ORDERED: DIGOXIN 500 MCG/2 ML AMP IVP ONE ×2 (10:52→13:00)
--- NOTE | 2017-04-27 11:16 | HOSPPROG ---
Hospitalist Progress Note Assessment/Plan: 82 yo F w copd a/w increased work of breathing, found to be influenza B postive copd exacerbation: change steroids to po pred cont MDI OK to dc abx given that influenza is likely trigger cxr on admit w no infiltrate (interp by me), but now w LLL infiltrate start levoflox for HCAP she is still tight and wheezy although improved by exam and symptoms will proced w prolonged steroid taper HCAP: levoflox day 11/30 AF: has had AF in past and recenty admit w suspected, not proven AF has been on eliquis in past w no issues low hasbled score, high chadsvasc start eliquis already on two peter agents now rapid and on dilt gtt- likely being driven by intercurrent illness start digoxin influenza B: start tamiflu + blood cx: pattern of single blood cx + for CoNS most c/w contaminant repeat blood cx neg hold abx proph: eliquis dispo: inpt Subjective: rapid AF overnight and early AM (tele interp by me). cxr w probable new LL infiltrate (interp by me) Objective: Vital Signs Temp Pulse Resp BP Pulse Ox 36.4 C 132 H 20 120/75 98 04/27/17 08:00 04/27/17 08:18 04/27/17 08:00 04/27/17 08:18 04/27/17 08:00 Microbiology 04/24/17 12:45 - Final Sputum, Expectorated Sputum Culture - Final Laboratory Results 04/26/17 07:50 04/26/17 07:50 04/26/17 04/27/17 04/28/17 05:59 05:59 05:59 Intake Total 400 600 50 Output Total 1 1350 Balance 399 -750 50 PT 13.1 SEC (12.0-15.0) 04/24/17 04:57 INR 1.00 (0.83-1.16) 04/24/17 04:57 - Physical Exam Constitutional: no apparent distress, appears nourished Eyes: PERRL, anicteric sclera Ears, Nose, Mouth, Throat: moist mucous membranes, hearing normal Cardiovascular: irregularly irregular, tachycardia, No systolic murmur Respiratory: no respiratory distress, no rales or rhonchi, rhonchi (crackles L base), other Gastrointestinal: normoactive bowel sounds, soft, non-tender abdomen Genitourinary: No fontaine in urethra Skin: warm, normal color Musculoskeletal: full muscle strength, no muscle tenderness Neurologic: AAOx3, sensation intact bilaterally Psychiatric: interacting appropriately, not anxious Lymph, Heme, Immunologic: no cervical LAD ICD10 Worksheet Patient Problems: Problems Problem Status Onset COPD exacerbation Acute Atrial fibrillation Acute COPD exacerbation Acute Chronic Disease Mgmt/Transitional Care Acute Coronary artery disease Acute Elevated troponin Acute Hill Sachs deformity, right Acute Hyperglycemia Acute Infiltrate of lung present on imaging of chest Acute Shoulder dislocation Acute
[2017-04-27] MEDS: ZOLPIDEM TARTRATE 5 MG TAB PO SCH (21:25)
[2017-04-28 04:52] LABS: T3 (TRIIODOTHYRONINE) TOTAL 0.744 ng/mL (0.970-1.690)
[2017-04-28] MEDS ORDERED: DILTIAZEM 25 MG/5 ML VIAL IVP ONE (06:40)
[2017-04-28] MEDS ORDERED: DILTIAZEM 125 MG in D5W 125 ML IV SCH (06:40)
[2017-04-28] MEDS: FLUTICASONE/SALMETER 250/50MCG DISKUS IH SCH ×2 (08:40→20:51)
--- NOTE | 2017-04-28 11:22 | HOSPPROG ---
Hospitalist Progress Note Assessment/Plan: 82 yo F w copd a/w increased work of breathing, found to be influenza B postive copd exacerbation: change steroids to po pred cont MDI hold albuterol nebs given improvement in exam and rapid AF HCAP: levoflox day 12/31 AF: has had AF in past and recenty admit w suspected, not proven AF has been on eliquis in past w no issues low hasbled score, high chadsvasc start eliquis already on two peter agents digoxin added 04/27 still rapid this AM requiring restart of dilt gtt 1. dc dilt gtt 2. hold albuterol nebs 3. cardiology t see influenza B: start tamiflu + blood cx: pattern of single blood cx + for CoNS most c/w contaminant repeat blood cx neg hold abx proph: eliquis dispo: inpt Subjective: case d/w sarahi hoffmann, cardiology PA. tele: rapid AF in 130's, now 80's-90's w start of dilt gtt Objective: Vital Signs Temp Pulse Resp BP Pulse Ox 36.7 C 140 H 20 110/83 H 98 04/28/17 04:00 04/28/17 04:00 04/28/17 04:00 04/28/17 04:00 04/28/17 04:00 Laboratory Results 04/26/17 07:50 04/26/17 07:50 04/27/17 04/28/17 04/29/17 05:59 05:59 05:59 Intake Total 600 1240 Output Total 1350 150 Balance -750 1090 PT 13.1 SEC (12.0-15.0) 04/24/17 04:57 INR 1.00 (0.83-1.16) 04/24/17 04:57 - Physical Exam Constitutional: no apparent distress, appears nourished Eyes: PERRL, anicteric sclera Ears, Nose, Mouth, Throat: moist mucous membranes, hearing normal Cardiovascular: no murmur, rub, or gallop, irregularly irregular, tachycardia Respiratory: no respiratory distress, no rales or rhonchi, other (crackles L base, poor air movement (unchanged). scattered wheezes) Genitourinary: no bladder fullness, no bladder tenderness, No fontaine in urethra Skin: warm, normal color Musculoskeletal: full muscle strength, no muscle tenderness Neurologic: AAOx3 ICD10 Worksheet Patient Problems: Problems Problem Status Onset COPD exacerbation Acute Atrial fibrillation Acute COPD exacerbation Acute Chronic Disease Mgmt/Transitional Care Acute Coronary artery disease Acute Elevated troponin Acute Hill Sachs deformity, right Acute Hyperglycemia Acute Infiltrate of lung present on imaging of chest Acute Shoulder dislocation Acute
[2017-04-28] MEDS: ACETAMINOPHEN 325 MG TAB PO SCH (11:29)
[2017-04-28] MEDS: APIXABAN 2.5 MG TAB PO SCH ×2 (11:29→20:43)
[2017-04-28] MEDS: ASCORBIC ACID 500 MG TAB PO SCH (11:29)
[2017-04-28] MEDS: ATORVASTATIN CALCIUM 10 MG TAB PO SCH (11:29)
[2017-04-28] MEDS: ESCITALOPRAM OXALATE 10 MG TAB PO SCH (11:30)
[2017-04-28] MEDS: CHOLECALCIFEROL VIT D3 1,000 UNITS TAB PO SCH (11:30)
[2017-04-28] MEDS: DIGOXIN 125 MCG TAB PO SCH (11:30)
[2017-04-28] MEDS: DILTIAZEM CD 120 MG CAP PO SCH (11:30)
[2017-04-28] MEDS: OSELTAMIVIR 6 MG/ML UDSYR PO SCH ×2 (11:31→18:09)
[2017-04-28] MEDS: LOSARTAN POTASSIUM 50 MG TAB PO SCH (11:31)
[2017-04-28] MEDS: METOPROLOL TARTRATE 50 MG TAB PO SCH (11:31)
[2017-04-28] MEDS: GABAPENTIN 100 MG CAP PO SCH ×2 (11:31→20:43)
[2017-04-28] MEDS: predniSONE 20 MG TAB PO SCH (11:31)
[2017-04-28] MEDS: IPRATROPIUM/ALBUTEROL 3 ML DEYVIAL IH SCH ×4 (11:40→20:55)
--- NOTE | 2017-04-28 13:54 | GCON ---
[f rep st] CONSULTATION CARDIOLOGY CONSULTATION PRIMARY TICKET PRINTER AND TAGGER: Dr. Sharp. PRIMARY ECOMMERCE ANALYST: Rj Jurado MD. REASON FOR CONSULTATION: We were asked by Dr. Navjot Ny to evaluate the patient for her atrial fibrillation. HISTORY OF PRESENT ILLNESS: The patient is an 82-year-old female with past medical history signific ant for COPD, chronic hypoxic respiratory failure on 3 L of supplemental oxygen chronically, type 2 diabetes mellitus, hypertension, paroxysmal atrial fibrillation, who is admitted for acute COPD exac erbation with concomitant pneumonia and influenza B. She had noted 3 days of antecedent upper respi ratory type symptoms with cough, nasal congestion, and sneezing. On day of admission, she became ac utely short of breath with significant wheezing. She was brought to the emergency department and tr eated with BiPAP, IV steroids, and nebulized treatments. Initially, she was in sinus rhythm. [facility], since approximately 04/24/2017, she went into atrial fibrillation. She has had at least 1 other episode of documented AFib in the setting of a previous COPD exacerbation in 2014. This was treate d with rate control with metoprolol and diltiazem. At that time, she was started on Eliquis as well . There were thoughts to have her proceed to cardioversion; however, she apparently converted on he r own. In followup, she was taken off Eliquis given that AFib in the setting of a COPD exacerbation is katie to postop AFib and does not require long-term anticoagulation. Currently, she reports no chest pain, dyspnea, lightheadedness, presyncope, syncope, peripheral jakob a. She feels her breathing has significantly improved, though she is still somewhat wheezing and do es have a current productive cough. PAST MEDICAL HISTORY: 1. Mild to moderate aortic insufficiency. 2. History of asthma. 3. History of paroxysmal AFib. 4. History of CAD, status post PCI. 5. History of COPD. 6. History of chronic respiratory failure. 7. Type 2 diabetes mellitus that has been quite well controlled. 8. Hypertension. 9. Recurrent UTIs. ALLERGIES: Listed as metformin, penicillins, and Spiriva. OUTPATIENT MEDICATIONS: Include atorvastatin, diltiazem, Atrovent, Ambien, Requip, albuterol, Advai r, Tylenol, ascorbic acid, cholecalciferol, gabapentin, Lexapro, losartan, metoprolol. SURGICAL HISTORY: Includes tonsillectomy, tubal ligation, right shoulder arthroscopy. SOCIAL HISTORY: Patient is a former smoker, quit about 20 years ago. She lives independently with her . No significant alcohol intake. FAMILY HISTORY: No significant family history is listed. REVIEW OF SYSTEMS: As per HPI. A complete 10-point review of systems was obtained and is negative except for what is dictated. PHYSICAL EXAMINATION: VITAL SIGNS: BP of 125/72, heart rate 98, respirations 20, O2 saturation 96% on 3 L/minute, temp of 97.7 degrees Fahrenheit. GENERAL: She is a very pleasant female in no appa rent distress. HEENT: Eyes are PERRL. HEART: Irregularly irregular, with no rubs or gallops. AVIVA NGS: Very diminished with wheezing and rhonchi present. ABDOMEN: Soft, with normoactive bowel abbe nds. SKIN: Warm and dry. PSYCH: Normal mood and affect. NEURO: No focal deficits detected. LABORATORY DATA: Telemetry reviewed and does show AFib with some RVR. Echo shows EF of 69, diastol ic dysfunction, mild MR, mild to moderate TR, RVSP 48, with moderate pulmonary hypertension, trace t o mild AR. 12-lead ECG personally interpreted from 04/26/2017 shows atrial fibrillation with some flutter at a rate of 156. 12-lead ECG from 04/24/2017 shows sinus rhythm with a rate of 90, left anterior fascic ular block, diffuse ST-T wave abnormalities. 04/24/2017 chest x-ray shows stable mild hyperexpanded lungs from COPD. 04/27/2017 chest x-ray shows left basilar opacity, atelectasis versus pneumonia, superimposed upon underlying emphysema. IMPRESSION AND PLAN: The patient is an 82-year-old female, admitted for chronic obstructive pulmona ry disease exacerbation with concomitant hospital-acquired pneumonia, as well as influenza B. 1. Atrial fibrillation. She is in persistent atrial fibrillation. Her rates now appeared to be co ntrolled with the addition of digoxin. We will continue this now. However, our preference is she j ust stay on rate control with metoprolol and diltiazem. Her metoprolol has been changed to 25 b.i.d . to allow for more sustained coverage throughout the day. She has an elevated CHADS-VASc score giv en age, diabetes, hypertension, and atherosclerosis. She is appropriately dosed at 2.5 mg of Eliqui s b.i.d. We will plan for her to see Dr. Jurado as an outpatient to discuss rhythm-controlling agents if she does not convert after the resolution of her chronic obstructive pulmonary disease exacerbat ion. 2. Chronic obstructive pulmonary disease exacerbation. She appears to be improving and back to her baseline oxygen needs. 3. Coronary artery disease. She has had negative troponins in this admission. Her ECG does show s ome diffuse ST-T wave abnormalities. She has had stress testing last in October of 2013 that was n egative for ischemia. She may be considered for further provocative testing in the future. However , her ECG changes are likely related to her current lung disease. 4. Hypertension. Blood pressure appears to be well controlled. /[id number]/MODL
[2017-04-28] MEDS: LEVALBUTEROL 0.63 MG/3 ML DEYVIAL IH PRN (17:38)
[2017-04-28] MEDS: ZOLPIDEM TARTRATE 5 MG TAB PO SCH (20:43)
[2017-04-28] MEDS: METOPROLOL TARTRATE 25 MG TAB PO SCH (20:43)
[2017-04-28] MEDS: LORazepam 0.5 MG TAB PO PRN (20:54)
[2017-04-29] MEDS: IPRATROPIUM/ALBUTEROL 3 ML DEYVIAL IH SCH ×4 (06:18→20:57)
[2017-04-29] MEDS: OSELTAMIVIR 6 MG/ML UDSYR PO SCH ×2 (08:40→18:32)
[2017-04-29] MEDS: ACETAMINOPHEN 325 MG TAB PO SCH (08:40)
[2017-04-29] MEDS: METOPROLOL TARTRATE 25 MG TAB PO SCH ×2 (08:40→20:29)
[2017-04-29] MEDS: predniSONE 20 MG TAB PO SCH (08:41)
[2017-04-29] MEDS: LOSARTAN POTASSIUM 50 MG TAB PO SCH (08:41)
[2017-04-29] MEDS: GABAPENTIN 100 MG CAP PO SCH ×2 (08:42→20:29)
[2017-04-29] MEDS: ATORVASTATIN CALCIUM 10 MG TAB PO SCH (08:42)
[2017-04-29] MEDS: DILTIAZEM CD 120 MG CAP PO SCH (08:42)
[2017-04-29] MEDS: ESCITALOPRAM OXALATE 10 MG TAB PO SCH (08:42)
[2017-04-29] MEDS: CHOLECALCIFEROL VIT D3 1,000 UNITS TAB PO SCH (08:43)
[2017-04-29] MEDS: APIXABAN 2.5 MG TAB PO SCH ×2 (08:43→20:29)
[2017-04-29] MEDS: ASCORBIC ACID 500 MG TAB PO SCH (08:43)
[2017-04-29] MEDS: LORazepam 0.5 MG TAB PO PRN ×2 (08:48→20:29)
[2017-04-29] MEDS ORDERED: METOPROLOL TARTRATE 50 MG TAB PO ONE (09:52)
[2017-04-29] MEDS: DIGOXIN 125 MCG TAB PO SCH (10:18)
[2017-04-29] MEDS: FLUTICASONE/SALMETER 250/50MCG DISKUS IH SCH ×2 (10:42→21:59)
[2017-04-29] MEDS: LEVALBUTEROL 0.63 MG/3 ML DEYVIAL IH PRN ×2 (10:42→15:24)
--- NOTE | 2017-04-29 10:52 | PDCARPN ---
Cardiology Progress Note Chief Complaint: persistent AF Assessment/Plan: Assessment: 82F PMH COPD, chronic hypoxic respiratory failure, PAF, htn, CAD/previous PCI, here for COPD exacerbation in setting of flu B and HCAP. #. AF: persistent with RVR rates have been somewhat suboptimally controlled though improved currently will continue Metoprolol 25 BID, Dilt CD and Dig 50 mg Metoprolol dose given today if rates are suboptimal this PM and BP tolerates, will increase Dilt CD dosing #. CAD: stable continue AC, BB, ARB, statin therapy #. htn: mostly controlled follow Plan: Current rate controls are OK. She can be seen in follow up with Dr. Jurado ( appointment made for next week). 04/29/17 10:48 Subjective: Feels some dyspnea, wheezing, cough. No palps, cp, lightheadedness. Objective: Vital Signs (8 Hrs) Temp Pulse Resp BP Pulse Ox 04/29/17 10:18 116 H 134/87 H 04/29/17 08:00 98.2 F 109 H 20 153/74 H 95 04/29/17 04:00 98.6 F 117 H 20 161/89 H 90 L Intake/Output (24 Hrs) 04/28/17 04/29/17 04/30/17 05:59 05:59 05:59 Intake Total 1240 600 Output Total 150 875 Balance 1090 -275 Intake: Oral (ml) 1190 600 IV Infused (ml) 50 Diltiazem HCl/D5w 125 ml 50 @ Titrate IV CONT CHE Rx# :[id number] Output: Urine (ml) 150 875 Bedside Commode 150 875 Other: Intake Quantity Yes Sufficient Number of Voids Bedside Commode 1 Incontinence 1 Result Diagrams: 04/26/17 07:50 04/26/17 07:50 Telemetry: AF mostly CVR - Physical Exam Constitutional: no apparent distress Ears, Nose, Mouth, Throat: moist mucous membranes Cardiovascular: irregularly irregular Respiratory: reduced air movement, expiratory wheeze Gastrointestinal: normoactive bowel sounds Genitourinary: no suprapubic tenderness Neurologic: AAOx3 Psychiatric: cooperative, interactive ICD10 Worksheet Patient Problems: Problems Problem Status Onset COPD exacerbation Acute Atrial fibrillation Acute COPD exacerbation Acute Chronic Disease Mgmt/Transitional Care Acute Coronary artery disease Acute Elevated troponin Acute Hill Sachs deformity, right Acute Hyperglycemia Acute Infiltrate of lung present on imaging of chest Acute Shoulder dislocation Acute
--- NOTE | 2017-04-29 13:31 | HOSPPROG ---
Hospitalist Progress Note Assessment/Plan: 82 yo F with h/o COPD admitted with respiratory symptoms with positive influenza B copd exacerbation: cont po pred, dose decreased to 40, this is day 4. Will complete 5 day burst and d/c. holding albuterol nebs as exam improved and albuterol likely hastening RVR HCAP: levoflox day 01/28 AF: overall poor rate control despite multiple agents. cont eliquis cont BB, dilt, dig additional dose of BB given per cards consider increasing to 50 bid of metoprolol influenza B: cont tamiflu, supportive care + blood cx: pattern of single blood cx + for CoNS most c/w contaminant repeat blood cx neg proph: eliquis dispo: inpt Subjective: Pt feels well. Wonders about a rhythm control agent. No CP. Breathing is improved, on baseline O2 requirement. No fevers. Still coughing, but better. Objective: Vital Signs Temp Pulse Resp BP Pulse Ox 36.7 C 98 16 130/81 H 96 04/29/17 12:00 04/29/17 12:00 04/29/17 12:00 04/29/17 12:00 04/29/17 12:00 Laboratory Results 04/26/17 07:50 04/26/17 07:50 04/28/17 04/29/17 04/30/17 05:59 05:59 05:59 Intake Total 1240 600 Output Total 150 875 Balance 1090 -275 PT 13.1 SEC (12.0-15.0) 04/24/17 04:57 INR 1.00 (0.83-1.16) 04/24/17 04:57 - Physical Exam Constitutional: no apparent distress Eyes: PERRL Ears, Nose, Mouth, Throat: moist mucous membranes Cardiovascular: regular rate and rhythym Respiratory: no respiratory distress, reduced air movement Gastrointestinal: normoactive bowel sounds, soft, non-tender abdomen Skin: warm Musculoskeletal: full muscle strength Neurologic: AAOx3 Psychiatric: interacting appropriately ICD10 Worksheet Patient Problems: Problems Problem Status Onset Coronary artery disease Acute COPD exacerbation Acute Infiltrate of lung present on imaging of chest Acute Chronic Disease Mgmt/Transitional Care Acute Atrial fibrillation Acute Elevated troponin Acute Hyperglycemia Acute Shoulder dislocation Acute Hill Sachs deformity, right Acute COPD exacerbation Acute
[2017-04-29] MEDS: ZOLPIDEM TARTRATE 5 MG TAB PO SCH (20:29)
[2017-04-30] MEDS: IPRATROPIUM/ALBUTEROL 3 ML DEYVIAL IH SCH ×4 (03:26→22:29)
[2017-04-30] MEDS: ESCITALOPRAM OXALATE 10 MG TAB PO SCH (08:40)
[2017-04-30] MEDS: APIXABAN 2.5 MG TAB PO SCH ×2 (08:40→21:51)
[2017-04-30] MEDS: predniSONE 20 MG TAB PO SCH (08:41)
[2017-04-30] MEDS: ACETAMINOPHEN 325 MG TAB PO SCH (08:41)
[2017-04-30] MEDS: LOSARTAN POTASSIUM 50 MG TAB PO SCH (08:41)
[2017-04-30] MEDS: CHOLECALCIFEROL VIT D3 1,000 UNITS TAB PO SCH (08:41)
[2017-04-30] MEDS: DILTIAZEM CD 120 MG CAP PO SCH ×2 (08:41→21:51)
[2017-04-30] MEDS: GABAPENTIN 100 MG CAP PO SCH ×2 (08:41→21:51)
[2017-04-30] MEDS: ATORVASTATIN CALCIUM 10 MG TAB PO SCH (08:41)
[2017-04-30] MEDS: ASCORBIC ACID 500 MG TAB PO SCH (08:42)
[2017-04-30] MEDS: METOPROLOL TARTRATE 25 MG TAB PO SCH ×2 (08:42→21:53)
[2017-04-30] MEDS: FLUTICASONE/SALMETER 250/50MCG DISKUS IH SCH ×2 (09:47→20:53)
[2017-04-30] MEDS: LEVALBUTEROL 0.63 MG/3 ML DEYVIAL IH PRN ×2 (09:48→15:23)
--- NOTE | 2017-04-30 09:58 | HOSPPROG ---
Hospitalist Progress Note Assessment/Plan: 82 yo F with h/o COPD admitted with respiratory symptoms and positive influenza B with rapid a fib copd exacerbation: completed 5 day burst of prednisone. cont nebs, O2 at baseline. ?HCAP: levoflox day 02/28 AF: rate control improved with increased in metoprolol yesterday. continue to monitor, may need to increase dilt as well. cont eliquis cont BB, dilt, dig influenza B: cont tamiflu, supportive care + blood cx: pattern of single blood cx + for CoNS most c/w contaminant repeat blood cx neg proph: eliquis dispo: inpt Subjective: Pt feels better. HR better controlled, though still 110's at times. Denies CP or SOB. Appetite improved. Objective: Vital Signs Temp Pulse Resp BP Pulse Ox 36.8 C 109 H 15 131/84 H 94 04/30/17 08:00 04/30/17 08:00 04/30/17 08:00 04/30/17 08:00 04/30/17 08:00 Laboratory Results 04/26/17 07:50 04/26/17 07:50 04/29/17 04/30/17 05/01/17 05:59 05:59 05:59 Intake Total 600 400 Output Total 875 800 Balance -275 -400 PT 13.1 SEC (12.0-15.0) 04/24/17 04:57 INR 1.00 (0.83-1.16) 04/24/17 04:57 - Physical Exam Constitutional: no apparent distress Eyes: PERRL Ears, Nose, Mouth, Throat: moist mucous membranes Cardiovascular: irregularly irregular Respiratory: no respiratory distress, reduced air movement Gastrointestinal: normoactive bowel sounds, soft, non-tender abdomen Skin: warm Neurologic: AAOx3 Psychiatric: interacting appropriately ICD10 Worksheet Patient Problems: Problems Problem Status Onset COPD exacerbation Acute Atrial fibrillation Acute COPD exacerbation Acute Chronic Disease Mgmt/Transitional Care Acute Coronary artery disease Acute Elevated troponin Acute Hill Sachs deformity, right Acute Hyperglycemia Acute Infiltrate of lung present on imaging of chest Acute Shoulder dislocation Acute
[2017-04-30] MEDS: ALBUTEROL 200 PUFFS/18 GM MDI IH PRN ×2 (10:31→17:58)
[2017-04-30] MEDS: DIGOXIN 125 MCG TAB PO SCH (10:31)
--- NOTE | 2017-04-30 14:33 | PDCARPN ---
Cardiology Progress Note Chief Complaint: AF Assessment/Plan: Assessment: 82F PMH COPD, chronic hypoxic respiratory failure, PAF, htn, CAD/previous PCI, here for COPD exacerbation in setting of flu B and HCAP. #. AF: persistent with improved rate control rates are acceptable at this point started on Eliquis at appropriate dose due to high [id number] #. CAD: stable continue AC, BB, ARB, statin therapy #. htn: mostly controlled will increase Dilt CD to 120 BID 04/30/17 14:25 Subjective: Noting coughing and wheezing but these are all improving. Reviewed/Discussed With: hospitalist Objective: Vital Signs (8 Hrs) Temp Pulse Resp BP Pulse Ox 04/30/17 12:00 98.4 F 122 H 14 151/89 H 95 04/30/17 10:31 103 H 04/30/17 09:48 101 H 18 95 04/30/17 08:00 98.3 F 109 H 15 131/84 H 94 Intake/Output (24 Hrs) 04/29/17 04/30/17 05/01/17 05:59 05:59 05:59 Intake Total 600 400 Output Total 875 800 300 Balance -275 -400 -300 Intake: Oral (ml) 600 400 Output: Urine (ml) 875 800 300 Bedside Commode 875 Toilet 800 300 Other: Intake Quantity Yes Yes Sufficient Number of Voids Incontinence 1 Toilet 2 Result Diagrams: 04/26/17 07:50 04/26/17 07:50 Telemetry: AF - Physical Exam Constitutional: no apparent distress Eyes: PERRL Ears, Nose, Mouth, Throat: moist mucous membranes Cardiovascular: irregularly irregular Respiratory: reduced air movement, bronchial breath sounds, No expiratory wheeze Skin: no rashes, warm Neurologic: AAOx3 Psychiatric: cooperative, interactive ICD10 Worksheet Patient Problems: Problems Problem Status Onset COPD exacerbation Acute Atrial fibrillation Acute COPD exacerbation Acute Chronic Disease Mgmt/Transitional Care Acute Coronary artery disease Acute Elevated troponin Acute Hill Sachs deformity, right Acute Hyperglycemia Acute Infiltrate of lung present on imaging of chest Acute Shoulder dislocation Acute
[2017-04-30] MEDS ORDERED: LACTULOSE 20 GM/30 ML UDCUP PO PRN (17:15)
[2017-04-30] MEDS ORDERED: BISACODYL 10 MG SUPP PR PRN (17:15)
[2017-04-30] MEDS ORDERED: MAGNESIUM HYDROXIDE 30 ML UDCUP PO PRN (17:15)
[2017-04-30] MEDS ORDERED: POLYETHYLENE GLYCOL 3350 17 GM PKT PO PRN (17:15)
[2017-04-30] MEDS: ZOLPIDEM TARTRATE 5 MG TAB PO SCH (21:51)
[2017-04-30] MEDS: SENNOSIDES/DOCUSATE SODIUM TAB PO SCH (21:51)
[2017-05-01] MEDS: IPRATROPIUM/ALBUTEROL 3 ML DEYVIAL IH SCH ×2 (06:10→09:33)
[2017-05-01 07:50] VITALS: BP 164/101; PULSE 104; RESP 16; TEMP 98.5; O2SAT 91
[2017-05-01] MEDS: SENNOSIDES/DOCUSATE SODIUM TAB PO SCH (09:05)
[2017-05-01] MEDS: APIXABAN 2.5 MG TAB PO SCH (09:05)
[2017-05-01] MEDS: CHOLECALCIFEROL VIT D3 1,000 UNITS TAB PO SCH (09:05)
[2017-05-01] MEDS: ESCITALOPRAM OXALATE 10 MG TAB PO SCH (09:05)
[2017-05-01] MEDS: ACETAMINOPHEN 325 MG TAB PO SCH (09:06)
[2017-05-01] MEDS: ATORVASTATIN CALCIUM 10 MG TAB PO SCH (09:07)
[2017-05-01] MEDS: GABAPENTIN 100 MG CAP PO SCH (09:07)
[2017-05-01] MEDS: METOPROLOL TARTRATE 25 MG TAB PO SCH (09:07)
[2017-05-01] MEDS: ASCORBIC ACID 500 MG TAB PO SCH (09:07)
[2017-05-01] MEDS: DILTIAZEM CD 120 MG CAP PO SCH (09:07)
[2017-05-01] MEDS: LOSARTAN POTASSIUM 50 MG TAB PO SCH (09:08)
--- NOTE | 2017-05-01 09:28 | PDIAF ---
- Diagnosis Diagnosis: Influenza, COPD exacerbation, rapid A fib Code Status: Limited Resuscitation - Medication Management Discharge Medications: Medications to Continue on Transfer Atorvastatin Calcium [Lipitor 10 mg (*)] 10 mg PO DAILY 02/29/16 [Last Taken ] Diltiazem Cd [Cardizem ER 120 MG (*)] 120 mg PO DAILY 02/29/16 [Last Taken 04/23] Zolpidem Tartrate [Ambien 5MG (*)] 5 mg PO HS 03/31/16 [Last Taken 04/23/17] rOPINIRole HCL [Requip 0.25mg (RX)] 0.25 mg PO HS 03/31/16 [Last Taken 04/23/17] Albuterol [Proventil Inhaler HFA (*)] 1 puffs IH DAILY PRN 08/14/16 [Last Taken Unknown] Fluticasone/Salmeter 250/50Mcg [Advair 250/50 (*)] 1 puffs IH BID 08/14/16 [ Last Taken 04/23/17] Acetaminophen [Tylenol 325mg (*)] 325 mg PO DAILY 04/24/17 [Last Taken 04/23/17] Ascorbic Acid [Vitamin C 500 mg (*)] 500 mg PO DAILY 04/24/17 [Last Taken Unknown] Cholecalciferol Vit D3 [Vitamin D3 (*)] 1,000 units PO DAILY 04/24/17 [Last Taken Unknown] Escitalopram Oxalate [Lexapro] 5 mg PO DAILY 04/24/17 [Last Taken 04/23/17] Gabapentin [Neurontin 100 MG (*)] 100 mg PO BID 04/24/17 [Last Taken 04/23/17 21 :00] Losartan Potassium [Cozaar] 100 mg PO DAILY 04/24/17 [Last Taken 04/23/17] Apixaban [Eliquis] 2.5 mg PO BID #60 tab 05/01/17 [Last Taken Unknown] Digoxin [Lanoxin 125 mcg (RX)] 125 mcg PO DAILY AT 10AM #30 tab 05/01/17 [Last Taken Unknown] Ipratropium [Atrovent Hfa (*)] 1 puffs IH QID #1 mdi 05/01/17 [Last Taken Unknown] Metoprolol Tartrate [Lopressor 50 mg (*)] 50 mg PO BID #60 tab 05/01/17 [Last Taken Unknown] levOFLOXACIN [levAQUIN (*)] 750 mg PO DAILY AT 10AM #2 tab 05/01/17 [Last Taken Unknown] predniSONE 20 mg PO DAILY #10 tablet 05/01/17 [Last Taken Unknown] Discharge Medications: Refer to the Discharge Home Medication list for PRN reason. - Orders Services needed: Home Care, Registered Nurse, Physical Therapy, Occupational Therapy Home Care Face to Face: I certify that this patient was under my care and that I had the required [id number] encounter meeting the encounter requirements on the discharge day. My findings support the fact that the patient is homebound as defined in CMS Chapter 7 Medicare Benefits Manual 30.1.1, The condition of the patient is such that there exists a normal inability to leave home and consequently, leaving home would require a considerable and taxing effort. Oxygen: 3 LPM Diet Recommendation: no restrictions on diet - Follow Up Care Current Providers and Referrals: Alfonso Davies MD [Primary Care Provider] - Cruz Sharp MD [Medical Doctor] -
[2017-05-01] MEDS: FLUTICASONE/SALMETER 250/50MCG DISKUS IH SCH (09:33)
[2017-05-01] MEDS: DIGOXIN 125 MCG TAB PO SCH (10:31)
--- NOTE | 2017-05-01 22:11 | GDS ---
[f rep st] DISCHARGE SUMMARY DISCHARGE DIAGNOSES: 1. Acute on chronic hypoxemic respiratory failure secondary to chronic obstructive pulmonary diseas e exacerbation and influenza B. 2. Possible healthcare acquired pneumonia. 3. Atrial fibrillation with rapid ventricular rate. CONSULTANTS: REINA Galvan from the Cardiology service. IMAGING STUDIES/PROCEDURES: Echocardiogram April 24, 2017, showed normal left ventricular ejection fr action of 69% with normal wall motion. Mild mitral regurgitation. [id number] tricuspid regur gitation. Mild aortic regurgitation. Right ventricular systolic pressure 48. No pericardial effus ion. HISTORY OF DETAILS: Please see the history and physical dated April 24, 2017. In brief, the patient is an 82-year-old female with a history of COPD, chronic respiratory failure on 3 L of oxygen by benito al cannula at baseline who presents to the emergency department with wheezing and shortness of breat h. She was admitted to the hospital for further management. HOSPITAL COURSE: The patient was admitted to the progressive care unit. She was initially treated with IV Solu-Medrol and scheduled DuoNeb and required BiPAP support. She was able to wean off BiPAP and eventually weaned her O2 requirement back down to her baseline status. She did rule in for inf luenza B and completed 5 days of Tamiflu treatment. She was transitioned to oral steroids and will complete an extended taper at discharge. She did develop atrial fibrillation with rapid ventricular response during the hospitalization requiring addition of digoxin and up titration of her metoprolo l. Her rates are adequately controlled at discharge in the 90-100 range. She was started on Eliqui s for stroke prevention and will continue this at discharge as well. She will need close followup w [facility]. DISPOSITION: Patient is discharged home in stable condition. FOLLOW UP: 1. Dr. Alfonso Davies, primary care. 2. Dr. Cruz Sharp, [facility]. DISCHARGE MEDICATIONS: Please see [facility] for complete updated outpatient medication list. She wi ll continue all outpatient medications as prescribed with the exception of changed medication of inc reased dose of metoprolol to 50 mg p.o. twice daily, and I also increased her ipratropium to 1 puff inhaled four times daily. She had previously only been taking this once daily. NEW MEDICATIONS ON DISCHARGE: Include Eliquis 2.5 mg p.o. twice daily, #60 no refills. Digoxin 125 mcg p.o. daily, #30 no refills. Levaquin 750 mg p.o. daily for 2 more days, #2 no refills. Ryan garcia taper as directed over the next 9 days. /[id number]/MODL
== END 2017-05-01 10:58 | disposition home health service (06) | DRG 193 ==
LOC: EDUNIT# → F2N 14:37 → F1N 04-25 16:35 → F2W 04-26 08:31
PROVIDERS: ADMIT Internal Medicine; ATTEND Internal Medicine
DX: J10.08 Influenza due to other identified influenza virus with other specified pneumonia (principal); J96.21 Acute and chronic respiratory failure with hypoxia; J44.1 Chronic obstructive pulmonary disease with (acute) exacerbation; J44.0 Chronic obstructive pulmonary disease with (acute) lower respiratory infection; I48.91 Unspecified atrial fibrillation; Z99.81 Dependence on supplemental oxygen; Z87.891 Personal history of nicotine dependence; Z88.0 Allergy status to penicillin; I25.10 Atherosclerotic heart disease of native coronary artery without angina pectoris; I10 Essential (primary) hypertension; E11.9 Type 2 diabetes mellitus without complications
CPT/HCPCS: 84480-90; 84481-90; 96374; 97116-GP; 97161-GP; 97530-GP; G0463-PO; G8978-GP-CK; G8979-GP-CI; G8980-GP-CI; J1160; J1650; J1956; J2405; J2930

== ENCOUNTER → 2017-05-09 | Outpatient (CLI) | payer OTHER, MEDICARE | LOC: BHFA 15:00 | PROVIDERS: ATTEND Internal Medicine Cardiovascular Disease | DX: I48.91 Unspecified atrial fibrillation (principal) ==

== ENCOUNTER → 2017-10-29 | Outpatient (CLI) | payer OTHER, MEDICARE | LOC: BHFA 10:00 | PROVIDERS: ATTEND Internal Medicine Cardiovascular Disease | DX: R00.1 Bradycardia, unspecified (principal); I48.91 Unspecified atrial fibrillation; I10 Essential (primary) hypertension ==

== ENCOUNTER → 2018-01-27 | Outpatient (CLI) | payer OTHER, MEDICARE | LOC: CIMAGING 09:38 | PROVIDERS: ATTEND Internal Medicine | DX: J44.9 Chronic obstructive pulmonary disease, unspecified (principal); J40 Bronchitis, not specified as acute or chronic | CPT/HCPCS: 71046-PO ==

== ENCOUNTER 2018-03-24 15:37 | Emergency (ER) | payer OTHER, MEDICARE ==
[2018-03-24] MEDS ORDERED: IPRATROPIUM/ALBUTEROL 3 ML DEYVIAL IH ONE (15:48)
[2018-03-24] MEDS ORDERED: methylPREDNISolone SOD SUCC 125 MG/2 ML VIAL IVP ONE (15:48)
--- NOTE | 2018-03-24 15:53 | EDPHY ---
H & P Time Seen by Provider: 03/24/18 15:41 HPI/ROS: CHIEF COMPLAINT: Shortness of breath HISTORY OF PRESENT ILLNESS: Patient is an 83-year-old female with a history of COPD with chronic respiratory failure on 3 L nasal cannula continuously also with coronary disease status post 2 stents decade ago as well as hypertension who is sent from her primary doctor Paige's office this afternoon. The patient and state that she has been short of breath for the last 3 days. She has used her inhaler about 5 times today. She finished a prednisone taper about a month ago. She has not had a fever or cough or runny nose. She states that she thinks the weather changes are to blame. No chest pain. No GI symptoms. Dr. Gibson performed a chest x-ray which he reports had a retrocardiac infiltrate. She denies having a fever. REVIEW OF SYSTEMS: Constitutional: denies: chills, fever, recent illness, recent injury EENTM: denies: blurred vision, double vision, nose congestion Respiratory: See HPI Cardiac: denies: chest pain, irregular heart rate, lightheadedness, palpitations Gastrointestinal/Abdominal: denies: abdominal pain, diarrhea, nausea, vomiting, blood streaked stools Genitourinary: denies: dysuria, frequency, hematuria, pain Musculoskeletal: denies: joint pain, muscle pain Skin: denies: lesions, rash, jaundice, bruising Neurological: denies: headache, numbness, paresthesia, tingling, dizziness, weakness Hematologic/Lymphatic: denies: blood clots, easy bleeding, easy bruising Immunologic/allergic: denies: HIV/AIDS, transplant EXAM: GENERAL: Well-appearing, well-nourished and in no acute distress. Satting 88% on her baseline 3 L. HEAD: Atraumatic, normocephalic. EYES: Pupils equal round and reactive to light, extraocular movements intact, sclera anicteric, conjunctiva are normal. ENT: TMs normal, nares patent, oropharynx clear without exudates. Moist mucous membranes. NECK: Normal range of motion, supple without lymphadenopathy or JVD. LUNGS: Breath sounds clear to auscultation bilaterally and equal. No wheezes rales or rhonchi. HEART: Regular rate and rhythm without murmurs, rubs or gallops. ABDOMEN: Soft, nontender, normoactive bowel sounds. No guarding, no rebound. No masses appreciated. BACK: No CVA tenderness, no spinal tenderness, step-offs or deformities EXTREMITIES: Normal range of motion, no pitting or edema. No clubbing or cyanosis. NEUROLOGICAL: Cranial nerves II through XII grossly intact. Normal speech, normal gait. 5/5 strength, normal movement in all extremities, normal sensation PSYCH: Normal mood, normal affect. SKIN: Warm, dry, normal turgor, no visible rashes or lesions. Source: Patient, Family, RN/MD, Old records Exam Limitations: No limitations - Personal History Tetanus Vaccine Date: < 10 years - Medical/Surgical History Hx Asthma: No Hx Chronic Respiratory Disease: Yes Hx Diabetes: No Hx Cardiac Disease: Yes Hx Renal Disease: No Hx Cirrhosis: No Hx Alcoholism: No Hx HIV/AIDS: No Hx Splenectomy or Spleen Trauma: No Other PMH: pmh- COPD, HTN, CAD. psh- breast augmentation, tonsilectomy, appy, cardiac stent x2, tubal ligation - Family History Significant Family History: No pertinent family hx - Social History Smoking Status: Former smoker Alcohol Use: Sober Drug Use: None Constitutional: Initial Vital Signs Temperature (C) 36.9 C 03/24/18 15:48 Heart Rate 73 03/24/18 15:48 Respiratory Rate 18 03/24/18 15:48 Blood Pressure 198/85 H 03/24/18 15:48 O2 Sat (%) 98 03/24/18 15:48 O2 Delivery Mode Nasal Cannula O2 (L/minute) 3 Allergies/Adverse Reactions: metformin [Metformin] Allergy (Severe, Verified 03/24/18 15:48) Intolerant Penicillins Allergy (Severe, Verified 03/24/18 15:48) Hives tiotropium bromide [From Spiriva with HandiHaler] Allergy (Severe, Verified 12/11 15:48) Hives Home Medications: Medication Instructions Recorded Atorvastatin Calcium [Lipitor 10 10 mg PO DAILY 02/29/16 mg (*)] Diltiazem Cd [Cardizem ER 120 MG 120 mg PO DAILY 02/29/16 (*)] Zolpidem Tartrate [Ambien 5MG (*)] 5 mg PO HS 03/31/16 rOPINIRole HCL [Requip 0.25mg (RX)] 0.25 mg PO HS 03/31/16 Albuterol [Proventil Inhaler HFA 1 puffs IH DAILY PRN 08/14/16 (*)] Fluticasone/Salmeter 250/50Mcg 1 puffs IH BID 08/14/16 [Advair 250/50 (*)] Acetaminophen [Tylenol 325mg (*)] 325 mg PO DAILY 04/24/17 Ascorbic Acid [Vitamin C 500 mg 500 mg PO DAILY 04/24/17 (*)] Cholecalciferol Vit D3 [Vitamin D3 1,000 units PO DAILY 04/24/17 (*)] Escitalopram Oxalate [Lexapro] 5 mg PO DAILY 04/24/17 Gabapentin [Neurontin 100 MG (*)] 100 mg PO BID 04/24/17 Losartan Potassium [Cozaar] 100 mg PO DAILY 04/24/17 Apixaban [Eliquis] 2.5 mg PO BID #60 tab 05/01/17 Digoxin [Lanoxin 125 mcg (RX)] 125 mcg PO DAILY AT 10AM #30 tab 05/01/17 Ipratropium [Atrovent Hfa (*)] 1 puffs IH QID #1 mdi 05/01/17 Metoprolol Tartrate [Lopressor 50 50 mg PO BID #60 tab 05/01/17 mg (*)] levOFLOXACIN [levAQUIN (*)] 750 mg PO DAILY AT 10AM #2 tab 05/01/17 predniSONE 20 mg PO DAILY #10 tablet 05/01/17 levOFLOXACIN [levAQUIN] 750 mg PO DAILY #10 tab 03/24/18 methylPREDNISolone [Medrol Dose 1 each PO AD #1 ea 03/24/18 Bert] Medical Decision Making - Diagnostics EKG Interpretation: An EKG obtained and was read and documented in trace view. Please see trace view for full reading and report. Sinus rhythm, left axis deviation, symmetric previous, no longer in atrial fibrillation ED Course/Re-evaluation: I reviewed the x-ray obtained if the clinician's office. The patient's lab work and testing looks remarkably well. She is saturating 98% on 3 L which is her baseline. It appears that she had the oxygen turn to intermittent earlier. Her lung sounds remain clear after the DuoNeb. She is also receive cell a Medrol. We will administer the Levaquin and then give her road test and re- evaluate. 5:40 p.m. the patient did well in her road test. Nursing staff is discovered that the regulator was not working well and was turning off. She feels much better now that is on. She states that she has other once at home and in the car. We discussed admission versus discharge. The patient would prefer to go home. She will continue taking antibiotics and I will give her short burst of steroids. She will follow up with Dr. Gibson in the next couple of days. We also discussed indications for return to the emergency department sooner. Differential Diagnosis: Partial list of the Differential diagnosis considered include but were not limited to; pneumonia, COPD exacerbation and although unlikely based on the history and physical exam, I also considered PE, dissection, ischemia, pneumothorax, pleural effusion, CHF. I discussed these differential diagnoses and the plan with the patient as well as the usual and expected course. The patient understands that the diagnosis is provisional and that in medicine we are not always correct and that further workup is often warranted. Usual and customary warnings were given. All of the patient's questions were answered. The patient was instructed to return to the emergency department should the symptoms at all worsen or return, otherwise to followup with the physician as we discussed. - Data Points Laboratory Results: Laboratory Results 03/24/18 15:50 03/24/18 15:50 03/24/18 03/24/18 03/24/18 15:50 15:50 15:50 WBC RBC Hgb Hct MCV MCH MCHC RDW Plt Count MPV Neut % (Auto) Lymph % (Auto) [place] % (Auto) Eos % (Auto) Baso % (Auto) Nucleat RBC Rel Count Absolute Neuts (auto) Absolute Lymphs (auto) Absolute Monos (auto) Absolute Eos (auto) Absolute Basos (auto) Absolute Nucleated RBC Immature Gran % Immature Gran # PT 12.9 SEC SEC (12.0-15.0) INR 0.98 (0.83-1.16) APTT 30.8 SEC SEC (23.0-38.0) VBG Lactic Acid 1.3 mmol/L mmol/L (0.7-2.1) Sodium 134 mEq/L L mEq/L (135-145) Potassium 4.2 mEq/L mEq/L (3.5-5.2) Chloride 94 mEq/L L mEq/L (97-110) Carbon Dioxide 29 mEq/l mEq/l (22-31) Anion Gap 11 mEq/L mEq/L (8-16) BUN 12 mg/dL mg/dL (7-23) Creatinine 0.6 mg/dL mg/dL (0.6-1.0) Estimated GFR > 60 Glucose 131 mg/dL H mg/dL (70-100) Calcium 9.6 mg/dL mg/dL (8.5-10.4) Total Bilirubin 0.7 mg/dL mg/dL (0.1-1.4) Troponin I < 0.012 ng/mL ng/mL (0.000-0.034) 03/24/18 15:50 WBC 9.66 10^3/uL H 10^3/uL (3.80-9.50) RBC 4.71 10^6/uL 10^6/uL (4.18-5.33) Hgb 14.3 g/dL g/dL (12.6-16.3) Hct 44.1 % % (38.0-47.0) MCV 93.6 fL fL (81.5-99.8) MCH 30.4 pg pg (27.9-34.1) MCHC 32.4 g/dL g/dL (32.4-36.7) RDW 12.9 % % (11.5-15.2) Plt Count 263 10^3/uL 10^3/uL (150-400) MPV 8.8 fL fL (8.7-11.7) Neut % (Auto) 74.4 % H % (39.3-74.2) Lymph % (Auto) 13.9 % L % (15.0-45.0) [place] % (Auto) 8.3 % % (4.5-13.0) Eos % (Auto) 1.1 % % (0.6-7.6) Baso % (Auto) 0.4 % % (0.3-1.7) Nucleat RBC Rel Count 0.0 % % (0.0-0.2) Absolute Neuts (auto) 7.19 10^3/uL H 10^3/uL (1.70-6.50) Absolute Lymphs (auto) 1.34 10^3/uL 10^3/uL (1.00-3.00) Absolute Monos (auto) 0.80 10^3/uL 10^3/uL (0.30-0.80) Absolute Eos (auto) 0.11 10^3/uL 10^3/uL (0.03-0.40) Absolute Basos (auto) 0.04 10^3/uL 10^3/uL (0.02-0.10) Absolute Nucleated RBC 0.00 10^3/uL 10^3/uL (0-0.01) Immature Gran % 1.9 % H % (0.0-1.1) Immature Gran # 0.18 10^3/uL H 10^3/uL (0.00-0.10) PT INR APTT VBG Lactic Acid Sodium Potassium Chloride Carbon Dioxide Anion Gap BUN Creatinine Estimated GFR Glucose Calcium Total Bilirubin Troponin I Microbiology Results: MICROBIOLOGY 03/24/18 Unknown Nasal, Sinus - Swab Respiratory Panel (PCR) - Final No Organism Detected Medications Given: Discontinued Medications Albuterol/Ipratropium (Duoneb) 3 ml IH EDNOW ONE Stop: 03/24/18 15:49 Last Admin: 03/24/18 16:19 Dose: 3 ml Levofloxacin/Dextrose (Levaquin 750 Mg (Premix)) 150 mls @ 100 mls/hr IV EDNOW ONE PRN Reason: Protocol Stop: 03/24/18 17:17 Last Admin: 03/24/18 16:04 Dose: 150 mls Methylprednisolone Sodium Succinate (Solu-Medrol) 125 mg IVP EDNOW ONE Stop: 03/24/18 15:49 Last Admin: 03/24/18 16:00 Dose: 125 mg Departure - Departure Disposition: Home, Routine, Self-Care Clinical Impression: Chronic obstructive pulmonary disease with acute exacerbation Pneumonia Qualifiers: Pneumonia type: due to unspecified organism Laterality: unspecified laterality Lung location: lower lobe of lung Qualified Code(s): J18.1 - Lobar pneumonia, unspecified organism Condition: Fair Instructions: COPD (Chronic Obstructive Pulmonary Disease) (ED), Pneumonia (ED) Referrals: Alfonso Davies MD [Primary Care Provider] - As per Instructions Prescriptions: levOFLOXACIN [levAQUIN] 750 mg PO DAILY #10 tab methylPREDNISolone [Medrol Dose Bert] 1 each PO AD #1 ea
[2018-03-24 15:56] LABS: PLATELET COUNT 263 10^3/uL (150-400)
[2018-03-24 16:06] LABS: INR 0.98 (0.83-1.16); PROTIME(PATIENT) 12.9 SEC (12.0-15.0)
--- NOTE | 2018-03-24 16:12 | CPEKG ---
Heart Rate: 71 RR Interval: 845 P-R Interval: 168 QRSD Interval: 78 QT Interval: 388 QTC Interval: 422 P [place]: 0 QRS [place]: -23 T Wave [place]: 87 EKG Severity - ABNORMAL ECG - EKG Impression: SINUS RHYTHM EKG Impression: BORDERLINE LEFT AXIS DEVIATION EKG Impression: NONSPECIFIC T ABNORMALITIES, LATERAL LEADS EKG Impression: Similar to previous Electronically Signed By: Melchor Bowers 24-Mar-2018 16:19:20
[2018-03-24 18:14] VITALS: BP 181/75
== END 2018-03-24 17:50 | disposition home or self-care (01) ==
LOC: CED 15:37
DX: J44.1 Chronic obstructive pulmonary disease with (acute) exacerbation (principal); J18.1 Lobar pneumonia, unspecified organism; I10 Essential (primary) hypertension; I25.10 Atherosclerotic heart disease of native coronary artery without angina pectoris; Z79.01 Long term (current) use of anticoagulants; Z87.891 Personal history of nicotine dependence
CPT/HCPCS: 93005; 96365; 96375; 99284; J1956; J2930; 71046-PO; 80048-PO; 82247-PO; 83605-PO; 84484-PO; 85025-PO; 85610-PO; 85730-PO

== ENCOUNTER → 2018-03-24 | Outpatient (CLI) | payer OTHER, MEDICARE | LOC: CIMAGING 15:01 | PROVIDERS: ATTEND Internal Medicine | DX: J44.0 Chronic obstructive pulmonary disease with (acute) lower respiratory infection (principal) | CPT/HCPCS: 71046-PO ==

== ENCOUNTER 2018-03-26 21:58 | Observation (INO) | payer OTHER, MEDICARE ==
[2018-03-26] MEDS ORDERED: NS 1,000 ML IV ONE (22:02)
[2018-03-26] MEDS ORDERED: ALBUTEROL 3 ML DEYVIAL IH ONE (22:04)
--- NOTE | 2018-03-26 22:08 | EDPHY ---
H & P Stated Complaint: Dizzy, pnuemonia Time Seen by Provider: 03/26/18 22:05 HPI/ROS: HPI CHIEF COMPLAINT: Shortness of breath, lightheaded, Pre-Syncope. HISTORY OF PRESENT ILLNESS: Patient is a 83-year-old female, recently diagnosed with a pneumonia on her left lung started on prednisone Levaquin according to EMS, she presents emergency room tonight for shortness of breath and lightheadedness. She felt like she was going to pass out but did not do so. Denies any chest pain. She states she was trying to go to bed and got short of breath could not catch her breath and felt very lightheaded. called 911 and she was transported here to the emergency room. She is on 4 L nasal cannula at baseline. She presents emergency room stating that she feels better however earlier was more short of breath than normal and lightheaded. No chest pain. Past Medical History: COPD on 4 L nasal cannula, SVT, coronary artery disease, hypertension Past Surgical History: Denies recent surgery Social History: Denies daily use drugs alcohol tobacco. Lives in a private residence with in [place]. Family History: Noncontributory ROS REVIEW OF SYSTEMS: A comprehensive 10 point review of systems is otherwise negative aside from elements mentioned in the history of present illness. Exam Constitutional elderly, frail, no acute distress, triage nursing summary reviewed, vital signs reviewed, awake/alert. Eyes normal conjunctivae and sclera, EOMI, PERRLA. HENT normal inspection, atraumatic, dry mucus membranes, no epistaxis, neck supple/ no meningismus, no raccoon eyes. Respiratory decreased breath sounds bilaterally, no significant wheezing, no distress Cardiovascular rate normal, regular rhythm, no murmur, no edema, distal pulses normal. Gastrointestinal soft, non-tender, no rebound, no guarding, normal bowel sounds, no distension, no pulsatile mass. Genitourinary no CVA tenderness. Musculoskeletal no midline vertebral tenderness, full range of motion, no calf swelling, no tenderness of extremities, no meningismus, good pulses, neurovascularly intact. Skin pink, warm, & dry, no rash, skin atraumatic. Neurologic awake, alert and oriented x 3, AAOx3, moves all 4 extremities equally, motor intact, sensory intact, CN II-XII intact, normal cerebellar, normal vision, normal speech. Psychiatric normal mood/affect. Heme/Lymph/Immune no lymphadenopathy. Differential Diagnosis: Includes but is not limited to in a particular order worsening pneumonia, electrolyte disturbance, dehydration, infection, bacteremia , sepsis, cardiac arrhythmia, acute coronary syndrome, COPD exacerbation Medical Decision Making: Plan for this patient IV establishment with blood draw , chest x-ray, albuterol neb, IV fluids, EKG, lactic acid blood work and re- evaluate. Re-evaluation: EKG interpretation by me on record in [employer] system. Impression time of EKG 221, sinus rhythm rate of 90 no acute ischemic changes. No ST elevation no ST depression no significant T-wave abnormalities. Nonischemic EKG. 2347: Patient re-evaluated this time she is resting comfortably. Her current vitals heart rate 91, pulse ox 95% on 4 L nasal cannula which is her baseline. She reports to me she feels much better and she would like to go home. I did offer her hospital admission today for observation for COPD and feeling lightheaded however she has declined this. She does not want to be admitted. She is already on prednisone Levaquin. I encouraged her to take this. She also. Slightly dehydrated and dry upon arrival she did receive a L of fluid and feels better. She is afebrile. She is on her baseline oxygen. She has no chest pain. 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 Additionally return precautions discussed with her she understands return emergency room if develops worsening shortness of breath, chest pain, not feeling well. Continue Levaquin prednisone as previously prescribed. 2357: Prior to being discharged home the patient ambulated throughout the emergency room and became short of breath even on 4 L nasal cannula with the [place] down to 85% with increased work of breathing. Long discussion. With her and her she agrees to stay in the hospital tonight for COPD. Spoke with Dr. Munoz, agrees to admit the patient for COPD exacerbation. Source: Patient, Family, EMS - Personal History Current Tetanus Diphtheria and Acellular Pertussis (TDAP): Yes Tetanus Vaccine Date: < 10 years - Medical/Surgical History Hx Asthma: No Hx Chronic Respiratory Disease: Yes Hx Diabetes: No Hx Cardiac Disease: Yes Hx Renal Disease: No Hx Cirrhosis: No Hx Alcoholism: No Hx HIV/AIDS: No Hx Splenectomy or Spleen Trauma: No Other PMH: pmh- COPD, HTN, CAD. psh- breast augmentation, tonsilectomy, appy, cardiac stent x2, tubal ligation - Social History Smoking Status: Former smoker Constitutional: Initial Vital Signs Heart Rate 93 03/26/18 22:01 Respiratory Rate 20 03/26/18 22:01 Blood Pressure 178/83 H 03/26/18 22:01 O2 Sat (%) 97 03/26/18 22:01 O2 Delivery Mode Nasal Cannula O2 (L/minute) 4 Allergies/Adverse Reactions: metformin [Metformin] Allergy (Severe, Verified 03/26/18 22:01) Intolerant Penicillins Allergy (Severe, Verified 03/26/18 22:01) Hives tiotropium bromide [From Spiriva with HandiHaler] Allergy (Severe, Verified 02/08 22:01) Hives Home Medications: Medication Instructions Recorded Atorvastatin Calcium [Lipitor 10 10 mg PO DAILY 02/29/16 mg (*)] Diltiazem Cd [Cardizem ER 120 MG 120 mg PO DAILY 02/29/16 (*)] Zolpidem Tartrate [Ambien 5MG (*)] 5 mg PO HS 03/31/16 rOPINIRole HCL [Requip 0.25mg (RX)] 0.25 mg PO HS 03/31/16 Albuterol [Proventil Inhaler HFA 1 puffs IH DAILY PRN 08/14/16 (*)] Fluticasone/Salmeter 250/50Mcg 1 puffs IH BID 08/14/16 [Advair 250/50 (*)] Acetaminophen [Tylenol 325mg (*)] 325 mg PO DAILY 04/24/17 Ascorbic Acid [Vitamin C 500 mg 500 mg PO DAILY 04/24/17 (*)] Cholecalciferol Vit D3 [Vitamin D3 1,000 units PO DAILY 04/24/17 (*)] Escitalopram Oxalate [Lexapro] 5 mg PO DAILY 04/24/17 Gabapentin [Neurontin 100 MG (*)] 100 mg PO BID 04/24/17 Losartan Potassium [Cozaar] 100 mg PO DAILY 04/24/17 Apixaban [Eliquis] 2.5 mg PO BID #60 tab 05/01/17 Digoxin [Lanoxin 125 mcg (RX)] 125 mcg PO DAILY AT 10AM #30 tab 05/01/17 Ipratropium [Atrovent Hfa (*)] 1 puffs IH QID #1 mdi 05/01/17 Metoprolol Tartrate [Lopressor 50 50 mg PO BID #60 tab 05/01/17 mg (*)] levOFLOXACIN [levAQUIN (*)] 750 mg PO DAILY AT 10AM #2 tab 05/01/17 predniSONE 20 mg PO DAILY #10 tablet 05/01/17 levOFLOXACIN [levAQUIN] 750 mg PO DAILY #10 tab 03/24/18 methylPREDNISolone [Medrol Dose 1 each PO AD #1 ea 03/24/18 Bert] Medical Decision Making - Diagnostics Imaging Results: Imaging Impressions Chest X-Ray 03/26/18 22:03 Impression: No change. No radiographic evidence for acute cardiopulmonary process. - Data Points Laboratory Results: Laboratory Results 03/26/18 21:55 03/26/18 21:55 03/26/18 03/26/18 03/26/18 23:20 22:30 21:55 WBC RBC Hgb Hct MCV MCH MCHC RDW Plt Count MPV Neut % (Auto) Lymph % (Auto) [place] % (Auto) Eos % (Auto) Baso % (Auto) Nucleat RBC Rel Count Absolute Neuts (auto) Absolute Lymphs (auto) Absolute Monos (auto) Absolute Eos (auto) Absolute Basos (auto) Absolute Nucleated RBC Immature Gran % Seg Neutrophils % Band Neutrophils % Lymphocytes % Monocytes % Eosinophils % Basophils % Metamyelocytes % Myelocytes % Promyelocytes % Blast Cells % Immature Gran # Absolute Seg Neuts Absolute Band Neuts Absolute Lymphocytes Absolute Monocytes Absolute Eosinophils Absolute Basophils Absolute Metamyelocyte Absolute Myelocytes Absolute Promyelocytes Absolute Plasma Cells RBC/WBC/PLT Morphology Absolute Blast Cells Plasma Cells % Platelet Estimate PT INR APTT VBG Lactic Acid 2.1 mmol/L mmol/L (0.7-2.1) Sodium 134 mEq/L L mEq/L (135-145) Potassium 4.4 mEq/L mEq/L (3.5-5.2) Chloride 96 mEq/L L mEq/L (97-110) Carbon Dioxide 26 mEq/l mEq/l (22-31) Anion Gap 12 mEq/L mEq/L (8-16) BUN 17 mg/dL mg/dL (7-23) Creatinine 0.9 mg/dL mg/dL (0.6-1.0) Estimated GFR 60 Glucose 156 mg/dL H mg/dL (70-100) Calcium 9.1 mg/dL mg/dL (8.5-10.4) Magnesium 1.6 mg/dL mg/dL (1.6-2.3) Total Bilirubin 0.6 mg/dL mg/dL (0.1-1.4) Conjugated Bilirubin 0.4 mg/dL mg/dL (0.0-0.5) Unconjugated Bilirubin 0.2 mg/dL mg/dL (0.0-1.1) AST 24 IU/L IU/L (14-46) ALT 29 IU/L IU/L (9-52) Alkaline Phosphatase 86 IU/L IU/L (38-126) Creatine Kinase 119 IU/L IU/L (0-156) CK-MB (CK-2) Fraction 5.36 ng/mL H ng/mL (0.00-3.19) CK-MB (CK-2) % 4.5 % H % (0.0-4.0) Creatine Kinase Interp POSITIVE H (NEGATIVE) Troponin I < 0.012 ng/mL ng/mL (0.000-0.034) NT-Pro-B Natriuret Pep 360 pg/mL pg/mL (0-450) Total Protein 6.8 g/dL g/dL (6.3-8.2) Albumin 4.3 g/dL g/dL (3.5-5.0) Lipase 63 IU/L IU/L (23-300) Urine Color COLORLESS Urine Appearance CLEAR Urine pH 7.0 (5.0-7.5) Ur Specific [place] 1.004 (1.002-1.030) Urine Protein NEGATIVE (NEGATIVE) Urine Ketones NEGATIVE (NEGATIVE) Urine Blood NEGATIVE (NEGATIVE) Urine Nitrate NEGATIVE (NEGATIVE) Urine Bilirubin NEGATIVE (NEGATIVE) Urine Urobilinogen NEGATIVE EU EU (0.2-1.0) Ur Leukocyte Esterase NEGATIVE (NEGATIVE) Urine Glucose NEGATIVE (NEGATIVE) 03/26/18 03/26/18 21:55 21:55 WBC 9.32 10^3/uL 10^3/uL (3.80-9.50) RBC 4.35 10^6/uL 10^6/uL (4.18-5.33) Hgb 13.4 g/dL g/dL (12.6-16.3) Hct 39.9 % % (38.0-47.0) MCV 91.7 fL fL (81.5-99.8) MCH 30.8 pg pg (27.9-34.1) MCHC 33.6 g/dL g/dL (32.4-36.7) RDW 13.2 % % (11.5-15.2) Plt Count 267 10^3/uL 10^3/uL (150-400) MPV 9.3 fL fL (8.7-11.7) Neut % (Auto) Not Reported Lymph % (Auto) Not Reported [place] % (Auto) Not Reported Eos % (Auto) Not Reported Baso % (Auto) Not Reported Nucleat RBC Rel Count Not Reported Absolute Neuts (auto) Not Reported Absolute Lymphs (auto) Not Reported Absolute Monos (auto) Not Reported Absolute Eos (auto) Not Reported Absolute Basos (auto) Not Reported Absolute Nucleated RBC Not Reported Immature Gran % Not Reported Seg Neutrophils % 90.0 % % Band Neutrophils % 1.0 % % Lymphocytes % 5.0 % % Monocytes % 4.0 % % Eosinophils % 0 % % Basophils % 0 % % Metamyelocytes % 0 % % Myelocytes % 0 % % Promyelocytes % 0 % % Blast Cells % 0 % % Immature Gran # Not Reported Absolute Seg Neuts 8.39 10^/uL H 10^/uL (1.70-6.50) Absolute Band Neuts 0.09 10^3/uL 10^3/uL (0.00-0.70) Absolute Lymphocytes 0.47 10^3/uL L 10^3/uL (1.00-3.00) Absolute Monocytes 0.37 10^3/uL 10^3/uL (0.30-0.80) Absolute Eosinophils 0.00 10^3/uL L 10^3/uL (0.03-0.40) Absolute Basophils 0.00 10^3/uL L 10^3/uL (0.02-0.10) Absolute Metamyelocyte 0.00 10^3/mL 10^3/mL (0.00-0.00) Absolute Myelocytes 0.00 10^3/mL 10^3/mL (0.00-0.00) Absolute Promyelocytes 0.00 10^3/uL 10^3/uL (0.00-0.00) Absolute Plasma Cells 0.00 10^3/uL 10^3/uL (0.00-0.00) RBC/WBC/PLT Morphology NORMAL (NORMAL) Absolute Blast Cells 0.00 10^3/uL 10^3/uL (0.00-0.00) Plasma Cells % 0 % % Platelet Estimate ADEQUATE (ADEQ) PT 15.5 SEC H SEC (12.0-15.0) INR 1.21 H (0.83-1.16) APTT 29.8 SEC SEC (23.0-38.0) VBG Lactic Acid Sodium Potassium Chloride Carbon Dioxide Anion Gap BUN Creatinine Estimated GFR Glucose Calcium Magnesium Total Bilirubin Conjugated Bilirubin Unconjugated Bilirubin AST ALT Alkaline Phosphatase Creatine Kinase CK-MB (CK-2) Fraction CK-MB (CK-2) % Creatine Kinase Interp Troponin I NT-Pro-B Natriuret Pep Total Protein Albumin Lipase Urine Color Urine Appearance Urine pH Ur Specific [place] Urine Protein Urine Ketones Urine Blood Urine Nitrate Urine Bilirubin Urine Urobilinogen Ur Leukocyte Esterase Urine Glucose Medications Given: Discontinued Medications Albuterol (Proventil Neb) 3 ml IH EDNOW ONE Stop: 03/26/18 22:05 Last Admin: 03/26/18 22:18 Dose: 3 ml Sodium Chloride (Ns) 1,000 mls @ 0 mls/hr IV EDNOW ONE; Wide Open PRN Reason: Protocol Stop: 03/26/18 22:03 Last Admin: 03/26/18 22:15 Dose: 1,000 mls Departure - Departure Disposition: [facility] Inpatient Acute Clinical Impression: COPD exacerbation, Dehydration Condition: Good Instructions: Dehydration (ED), COPD (Chronic Obstructive Pulmonary Disease) ( ED) Additional Instructions: 1. Drink lots of fluids stay well-hydrated 2. Return emergency room if you have worsening symptoms includes worsening shortness of breath, fever, not feeling well. 3. I would continue prednisone and Levaquin as prescribed. 4. Return if worse. 5. Close follow-up with her primary care doctor. Referrals: Alfonso Davies MD [Primary Care Provider] - As per Instructions
--- NOTE | 2018-03-26 22:13 | CPEKG ---
Heart Rate: 90 RR Interval: 667 P-R Interval: 184 QRSD Interval: 76 QT Interval: 340 QTC Interval: 416 P [place]: 24 QRS [place]: -25 T Wave [place]: 67 EKG Severity - OTHERWISE NORMAL ECG - EKG Impression: SINUS RHYTHM EKG Impression: BORDERLINE LEFT AXIS DEVIATION Electronically Signed By: Trung Pruett 27-Mar-2018 06:28:24
[2018-03-26 22:18] LABS: PLATELET COUNT 267 10^3/uL (150-400)
[2018-03-26 22:24] LABS: INR 1.21 (0.83-1.16); PROTIME(PATIENT) 15.5 SEC (12.0-15.0)
[2018-03-26 22:28] LABS: CREATINE KINASE 119 IU/L (0-156)
[2018-03-27] MEDS ORDERED: methylPREDNISolone SOD SUCC 125 MG/2 ML VIAL IVP ONE (00:12)
[2018-03-27] MEDS ORDERED: ACETAMINOPHEN 325 MG TAB PO PRN (00:47)
[2018-03-27] MEDS ORDERED: ONDANSETRON 4 MG/2 ML VIAL IVP PRN (00:47)
[2018-03-27] MEDS ORDERED: ALBUTEROL 3 ML DEYVIAL IH PRN (00:47)
[2018-03-27] MEDS ORDERED: NS 1,000 ML IV SCH (01:00)
[2018-03-27] MEDS ORDERED: hydrALAZINE 20 MG/ML VIAL IVP PRN (03:22)
--- NOTE | 2018-03-27 04:22 | GHP ---
[f rep st] HISTORY AND PHYSICAL DATE OF ADMISSION: 03/27/2018 SOURCE: Patient provides history, appears reliable. Her EMR was reviewed and case discussed with ED provider. HISTORY OF PRESENT ILLNESS: This is a very pleasant 83-year-old female with past medical history sig nificant for CAD, COPD with chronic respiratory failure on 3 L/min oxygen at baseline, paroxysmal atr ial fibrillation, history of chronic anticoagulation with Eliquis; who presents to the emergency depa rtment today with complaints of persistent dyspnea ongoing for the past 2 weeks and acutely in the la st several days, increased cough, dyspnea, and fatigue. Patient reports her symptoms increased appro ximately 2 weeks ago with the increasing winds and change in weather. She has noted significant dysp peter on exertion and increased cough with clear sputum production. She denies any fevers, chills, or recent sick contacts. Patient was seen in the emergency department on 03/24/2018. She was started o n Levaquin and a steroid Dosepak with some initial improvement in her symptoms. However, patient rep orts today she was having a harder time sleeping. She had also been having some changes in mentation and some auditory hallucinations. Patient states several days ago she did ask her to increa se her oxygen from baseline of 3 L/min up to 4 L/min due to severity of dyspnea even at rest while sh e was trying to go to sleep. Patient denies any chest pain or palpitations. She denies any lower ex tremity edema. No recent travel or increased risk for an acute DVT. Patient again is on Eliquis. REVIEW OF SYSTEMS: Negative except as noted above. ALLERGIES: Metformin, penicillin, tiotropium. MEDICATIONS: Patient's home medications include Requip 0.25 mg p.o. at h.s.; prednisone 20 mg p.o. d aily; levofloxacin 750 mg p.o. daily in the morning; Ambien 5 mg at h.s.; Lopressor 50 mg p.o. b.i.d. ; losartan 100 mg p.o. daily; ipratropium 1 puff inhaled q.i.d.; gabapentin 100 mg p.o. b.i.d.; Advai r 250/50 mcg, one puff inhaled b.i.d.; Lexapro 5 mg p.o. daily; Cardizem ER 120 mg p.o. daily; digoxi n 125 mg p.o. daily in the morning; vitamin D3 1000 units p.o. daily; atorvastatin 10 mg p.o. daily; vitamin C 500 mg p.o. daily; apixaban 2.5 mg p.o. b.i.d.; albuterol inhaler 1 puff daily p.r.n., Tyle nol 325 p.o. daily. PAST MEDICAL HISTORY: Significant for COPD with chronic hypoxic respiratory failure currently on 4 L /min at baseline, paroxysmal atrial fibrillation, CAD status post stenting x2, history of pneumonia, UTI, shoulder dislocation, hyperglycemia, RLS. PAST SURGICAL HISTORY: Significant for tonsillectomy, adenoidectomy, breast augmentation, appendecto my, cardiac cath with stent x2, BTL. FAMILY HISTORY: Significant for COPD. SOCIAL HISTORY: Patient is . She lives with her in [facility]. She has children in town who provide good support. Patient quit smoking tobacco some time ago. She occasion ally drinks an alcoholic beverage. She denies any illicit drug use. CODE STATUS: DNR-DNI. PHYSICAL EXAMINATION: VITAL SIGNS UPON ARRIVAL TO THE EMERGENCY DEPARTMENT: Blood pressure 178/83, heart rate 93, respiratory rate 20, O2 sat 97% on 4 L by nasal cannula. VITALS AVAILABLE AT TIME OF INTERVIEW: Blood pressure 210/84, repeat 194/92; heart rate 84; respiratory rate 18, O2 sat 98% on 4 L by nasal cannula; temperature 36.8. GENERAL: Patient is not in any acute distress. She is lying in bed with some increased work of breathing. She is pleasant, in good spirits. HEAD: Normocephal ic, atraumatic. EYES: Extraocular muscles are intact. Pupils equal, round, slightly dilated but sy mmetric and responsive to light. Patient with bilateral lens reflex appreciated. No scleral icterus or conjunctival injection. ENT: Mucous membranes appear just slightly dry. No oropharyngeal eryth abigail or exudates. No nasal discharge. NECK: Supple. Trachea midline. CV: Regular rate and rhythm . Slightly distant heart sounds. No rubs or gallops appreciated. No murmurs appreciated. No chest wall tenderness to palpation. RESPIRATORY: Mild increased work of breathing while at rest. Patient with notable moderate work of breathing after walking to the bathroom and back. She does have bilat eral wheezing and significantly reduced air movement. ABDOMEN: Positive bowel sounds. Soft. Nonte nder to palpation. No rebound, guarding, or masses appreciated. : No Abrams in place. No suprapu bic tenderness to palpation. No CVA tenderness. EXTREMITIES: Patient without any cyanosis, clubbin g, or edema. 1+ pedal pulses bilaterally and symmetric. NEURO: No facial drooping. Cranial nerves grossly intact. No focal deficits. Patient overall with generalized weakness and able to ambulate with some assistance. She does have a little bit of a tremor since administration of albuterol. PSY CH: Patient does appear just slightly anxious, but she is very pleasant and cooperative. DATA REVIEWED: LABORATORY STUDIES: WBCs 9.32, H and H are 13.4 and 39.9, MCV 91.7, platelet count 2 69, no bands. PT 15.5, INR 1.21, PTT 29.8. VBG: Lactic acid 2.1. Sodium 134, potassium 4.4, chlor jean-paul 96, CO2 26, anion gap 12, BUN 17, creatinine 0.9, GFR 60, glucose 156, calcium 9.1, magnesium 1.6 , total bili 0.6, ALT 29, AST 24, alk phos 84. CK 119, CK-MB 5.36, percent 4.5. Troponin is negativ e. BTNP 360. Total protein 6.8, albumin 4.3, lipase 63. UA: Specific gravity 1.004, pH 7.0, other maria negative. Digoxin level 1.5. Imaging and report reviewed myself: Cardiomegaly. Diffuse peribronchiolar thickening unchanged. Ex tensive atherosclerosis of thoracic aorta. Calcified breast implants noted. No developing consolida tion or effusion. Otherwise negative. EKG reviewed myself showing sinus rhythm in the 90s, left axis deviation, no acute ST changes, Q wave in lead III, otherwise negative. QTc is 416. ASSESSMENT AND PLAN: Pleasant 83-year-old female presenting with complaints of [id number] shor tness of breath. 1. Acute exacerbation of chronic obstructive pulmonary disease. Patient continues to have diffuse t ightness and wheezing diffusely. She did receive a bolus dose of Solu-Medrol in the emergency depart ment, nebulizer. Will add on Pulmicort nebulizer b.i.d., resume patient's Spiriva, schedule albutero l as patient with listed allergy to tiotropium. Will continue to titrate oxygen down closer to her b aseline. Maintain O2 saturation, 88% to 92% is okay to maintain respiratory drive. Continue patient 's Levaquin and change patient's taper to higher burst dose. 2. Nnklp-qv-klqtrvg hypoxic respiratory failure. Continue to titrate down oxygen as patient's sympt oms improve. Continue treatment plan as noted above. Patient without any complaints of chest pain. Low risk factors for PE. No evidence of pneumonia on imaging. 3. Confusion. Patient reports intermittent episodes of hallucinations and confusion. This certainl y could be related to her episodes of hypoxia. As noted in the emergency department with ambulation patient drops down to the 80s, versus steroids or infectious process less likely. Patient's mentatio n at this time is quite good. Will continue to monitor closely. Bed alarm in place in case patient should develop some symptoms. 4. Hyponatremia, likely secondary to hypovolemia. Patient admits that she does not drink any water. Her lactate is slightly elevated, but this is likely due to dehydration and not infectious process. Will plan to repeat in the morning with a.m. labs. 5. Chronic medical problem, coronary artery disease, status post stenting. Resume patient's statin, ALEJANDRINA, ARB, and aspirin. 6. Paroxysmal atrial fibrillation. Rate is currently controlled. Patient in normal sinus rhythm. Continue digoxin, Cardizem, apixaban. 7. Tptmdp-mzkcijeivyku-ftlavlooh. Patient does appear a little bit dry. Will give her some supplem entation overnight. She does not have any evidence of fluid overload. Electrolytes will be monitore d and replaced if needed. Regular diet at this point. Encourage patient to identify low-salt low-fa t foods. 8. Prophylaxis. SCDs. Resume patient's apixaban. 9. Code status. DNR-DNI. Patient was previously limited code but now desires to be made comfort on ly if any decline. DISPOSITION: Patient admitted to observation at this time on PCU for close monitoring. /[id number]/MODL
[2018-03-27 04:32] LABS: PLATELET COUNT 223 10^3/uL (150-400)
[2018-03-27] MEDS ORDERED: IPRATROPIUM/ALBUTEROL 3 ML DEYVIAL IH SCH (06:00)
[2018-03-27] MEDS: ALBUTEROL 3 ML DEYVIAL IH SCH ×4 (06:20→20:33)
[2018-03-27] MEDS: predniSONE 20 MG TAB PO SCH (08:18)
[2018-03-27] MEDS: BUDESONIDE 0.5 MG/2 ML AMPUL.NEB IH SCH ×2 (10:02→20:33)
[2018-03-27] MEDS ORDERED: LOSARTAN POTASSIUM 50 MG TAB PO SCH (11:00)
[2018-03-27] MEDS ORDERED: NEBIVOLOL HCL 5 MG TAB PO SCH (11:00)
[2018-03-27] MEDS: DILTIAZEM CD 120 MG CAP PO SCH (11:29)
--- NOTE | 2018-03-27 12:39 | ASMTCMCOM ---
CM Note CM Note Notes: Reviewed patient's chart/history. Met with patient and regarding discharge plan of care. Patient lives at home with . On oxygen at baseline. Discussed the possibility of HHC upon discharge, patient declines. She has used HHC in the past, will not use again at this time. Reviewed PT note, cleared for home. Patient understands she can reach out to CM should she have a change of mind. At this time, anticipate discharge home with support of when medically stable. D/C Plan: Home Independent Date Signed: 03/27/2018 12:39 PM Electronically Signed By:Gema Giles RN
[2018-03-27] MEDS ORDERED: FLUTICASONE/SALMETER 250/50MCG DISKUS IH SCH (12:45)
[2018-03-27] MEDS ORDERED: NON-FORMULARY NEW DRUG (Escitalopram Oxalate [Lexapro] 5 MG) PO SCH (12:45)
[2018-03-27] MEDS: APIXABAN 2.5 MG TAB PO SCH ×2 (13:01→20:19)
[2018-03-27] MEDS: DIGOXIN 125 MCG TAB PO SCH (13:01)
[2018-03-27] MEDS: ATORVASTATIN CALCIUM 10 MG TAB PO SCH (13:01)
--- NOTE | 2018-03-27 15:52 | HOSPPROG ---
Hospitalist Progress Note Assessment/Plan: # Acute COPD exacerbation - pt prepared for discahrge and now with ambulation feels to fatigued to return safely home - oxygen saturations 84% on 4L ambulating WBC 7.7 CXR (personally reviewed and interpreted) no infiltrates - changing from outpt medrol dose pack (pt with hallucinations) to prednisone 60mg burst - rx filled and bedside - cont inhaled beta agonists - # uncontrolled HTN - SBP 200's this prior to home meds - now SBP 150's - cont multi drug home regimen # dispo - will keep tonight for ongoing COPD care I have discussed the case with RN - we will keep the patient this evening with planned dc in am Subjective: denies CP Objective: Vital Signs Temp Pulse Resp BP Pulse Ox 36.6 C 78 15 150/70 H 97 03/27/18 15:24 03/27/18 15:24 03/27/18 15:24 03/27/18 15:24 03/27/18 15:24 Laboratory Results 03/27/18 04:12 03/27/18 04:12 03/26/18 03/27/18 03/28/18 05:59 05:59 05:59 Intake Total 1350 850 Output Total 950 1100 Balance 400 -250 PT 15.5 SEC (12.0-15.0) H 03/26/18 21:55 INR 1.21 (0.83-1.16) H 03/26/18 21:55 - Physical Exam Constitutional: appears nourished Eyes: anicteric sclera Ears, Nose, Mouth, Throat: moist mucous membranes Cardiovascular: regular rate and rhythym Respiratory: no respiratory distress, No expiratory wheeze Gastrointestinal: normoactive bowel sounds Genitourinary: no bladder fullness Skin: warm Musculoskeletal: No asymmetric calves Neurologic: AAOx3 Psychiatric: interacting appropriately Lymph, Heme, Immunologic: no cervical LAD ICD10 Worksheet Patient Problems: Problems Problem Status Onset COPD exacerbation Acute Dehydration Acute Atrial fibrillation Acute COPD exacerbation Acute Chronic Disease Mgmt/Transitional Care Acute Coronary artery disease Acute Elevated troponin Acute Hill Sachs deformity, right Acute Hyperglycemia Acute Infiltrate of lung present on imaging of chest Acute Shoulder dislocation Acute
[2018-03-27] MEDS: FLUTICASONE/SALMETER 250/50MCG DISKUS IH SCH ×2 (19:05→20:31)
[2018-03-27] MEDS: METOPROLOL TARTRATE 50 MG TAB PO SCH (20:19)
[2018-03-28] MEDS: ALBUTEROL 3 ML DEYVIAL IH SCH (04:25)
[2018-03-28 07:33] VITALS: BP 175/74
[2018-03-28] MEDS ORDERED: LOSARTAN POTASSIUM 50 MG TAB PO SCH (09:00)
[2018-03-28] MEDS ORDERED: ESCITALOPRAM OXALATE 10 MG TAB PO SCH (09:00)
[2018-03-28] MEDS ORDERED: NON-FORMULARY NEW DRUG (Losartan Potassium [Cozaar] 100 MG) PO SCH (09:00)
[2018-03-28] MEDS: predniSONE 20 MG TAB PO SCH (09:45)
[2018-03-28] MEDS: DILTIAZEM CD 120 MG CAP PO SCH (09:45)
[2018-03-28] MEDS: APIXABAN 2.5 MG TAB PO SCH (09:46)
[2018-03-28] MEDS: ATORVASTATIN CALCIUM 10 MG TAB PO SCH (09:47)
[2018-03-28] MEDS: DIGOXIN 125 MCG TAB PO SCH (09:47)
[2018-03-28] MEDS: METOPROLOL TARTRATE 50 MG TAB PO SCH (09:47)
[2018-03-28] MEDS ORDERED: predniSONE 20 MG TAB PO SCH (10:11)
[2018-03-28] MEDS ORDERED: DILTIAZEM CD 120 MG CAP PO SCH (10:15)
--- NOTE | 2018-03-28 10:29 | PDIAF ---
- Diagnosis Diagnosis: COPD exac Code Status: Do Not Resuscitate - Medication Management Discharge Medications: Medications to Continue on Transfer Atorvastatin Calcium [Lipitor 10 mg (*)] 10 mg PO DAILY 02/29/16 [Last Taken ] Diltiazem Cd [Cardizem ER 120 MG (*)] 120 mg PO DAILY 02/29/16 [Last Taken 04/23] rOPINIRole HCL [Requip 0.25mg (RX)] 0.25 mg PO HS 03/31/16 [Last Taken 04/23/17] Albuterol [Proventil Inhaler HFA (*)] 1 puffs IH DAILY PRN 08/14/16 [Last Taken Unknown] Fluticasone/Salmeter 250/50Mcg [Advair 250/50 (*)] 1 puffs IH BID 08/14/16 [ Last Taken 04/23/17] Ascorbic Acid [Vitamin C 500 mg (*)] 500 mg PO DAILY 04/24/17 [Last Taken Unknown] Escitalopram Oxalate [Lexapro] 5 mg PO DAILY 04/24/17 [Last Taken 04/23/17] Losartan Potassium [Cozaar] 100 mg PO DAILY 04/24/17 [Last Taken 04/23/17] Apixaban [Eliquis] 2.5 mg PO BID #60 tab 05/01/17 [Last Taken Unknown] Digoxin [Lanoxin 125 mcg (RX)] 125 mcg PO DAILY AT 10AM #30 tab 05/01/17 [Last Taken Unknown] Ipratropium [Atrovent Hfa (*)] 1 puffs IH QID #1 mdi 05/01/17 [Last Taken Unknown] Metoprolol Tartrate [Lopressor 50 mg (*)] 50 mg PO BID #60 tab 05/01/17 [Last Taken Unknown] levOFLOXACIN [levAQUIN (*)] 750 mg PO DAILY AT 10AM #2 tab 05/01/17 [Last Taken Unknown] Albuterol [Proventil Neb] 3 ml IH QID deyvial 03/27/18 [Last Taken Unknown] Loratadine [Claritin 10 mg] 10 mg PO DAILY PRN 03/27/18 [Last Taken Unknown] predniSONE 40 mg PO DAILY #10 tablet 03/28/18 [Last Taken Unknown] Coater Smoking Pipe Antibiotic Stop Date: 03/29/18 Discharge Medications: Refer to the Discharge Home Medication list for PRN reason. - Orders Services needed: Home Care, Registered Nurse, Physical Therapy, Occupational Therapy Home Care Face to Face: I certify that this patient was under my care and that I had the required [id number] encounter meeting the encounter requirements on the discharge day. My findings support the fact that the patient is homebound as defined in Home Care Face to Face Continued: CMS Chapter 7 Medicare Benefits Manual 30.1.1 , The condition of the patient is such that there exists a normal inability to leave home and consequently, leaving home would require a considerable and taxing effort. Isolation Type: None Diet Recommendation: cardiac -low fat low salt Diet Texture: Regular Texture Diet Additional Instructions: Levaquin for 1 more day then stop Prednisone 40mg daily for 5 days then stop - Follow Up Care Current Providers and Referrals: Alfonso Davies MD [Primary Care Provider] - As per Instructions
[2018-03-28] MEDS: FLUTICASONE/SALMETER 250/50MCG DISKUS IH SCH (11:01)
[2018-03-28] MEDS: BUDESONIDE 0.5 MG/2 ML AMPUL.NEB IH SCH (11:11)
[2018-03-28] MEDS ORDERED: IPRATROPIUM/ALBUTEROL 3 ML DEYVIAL IH SCH (12:00)
--- NOTE | 2018-03-28 12:08 | GDS ---
[f rep st] DISCHARGE SUMMARY DISCHARGE DIAGNOSIS: 1. Chronic obstructive pulmonary disease exacerbation. 2. Acute on chronic respiratory failure. 3. Possible pneumonia. 4. Uncontrolled hypertension. 5. Metabolic encephalopathy with hallucinations. 6. Paroxysmal atrial fibrillation. 7. Coronary artery disease, status post stent. HISTORY: Michelle is an 83-year-old female with a history of COPD, 3 L baseline, presents with shortnes s of breath. She was seen in the emergency room as well as primary care. Respiratory PCR negative f or viral infection. She was prior to admission started on a Medrol Dosepak and Levaquin but continued to worsen and presented to the hospital. She was admitted to observation. She was put on scheduled nebulizer treatments as well as continuation of antibiotics and steroids. She is now improved and tad k to baseline. Her hallucinations may have been due to the Levaquin or the prednisone. They are imp roving. I think a 5-day course of Levaquin will suffice and she can take her last dose tomorrow. We will also do a short burst of prednisone 40 mg x5 days. We will arrange for home health upon discha rge. Suspicion for pulmonary embolus is low due to her chronic anticoagulation. Her blood pressures are poorly controlled although she is already on a 3-drug regimen. Will defer to primary care regard ing ramping up her blood pressure medications any further. Perhaps when she is off prednisone, contr ol will be better. DISCHARGE MEDICATIONS: Please see computer record for full detailed list. New medications: 1. Prednisone 40 mg p.o. daily x5 days. 2. Levaquin for 1 more day and then discontinue. ADDITIONAL DISCHARGE INSTRUCTIONS: 1. Home health PT, OT, VNS. 2. Follow up with primary care. Greater than 30 minutes' time spent arranging this discharge. Patient was seen and examined by me on the day of discharge. /[id number]/MODL
[2018-03-29] MEDS ORDERED: DILTIAZEM CD 120 MG CAP PO SCH (09:00)
== END 2018-03-28 12:17 | disposition home health service (06) ==
LOC: EDUNIT# → F2W 03-27 00:50
PROVIDERS: ADMIT Family Medicine; ATTEND Internal Medicine
DX: J44.1 Chronic obstructive pulmonary disease with (acute) exacerbation (principal); J96.21 Acute and chronic respiratory failure with hypoxia; I10 Essential (primary) hypertension; G93.41 Metabolic encephalopathy; R44.3 Hallucinations, unspecified; I48.0 Paroxysmal atrial fibrillation; I25.10 Atherosclerotic heart disease of native coronary artery without angina pectoris; E11.9 Type 2 diabetes mellitus without complications; J44.0 Chronic obstructive pulmonary disease with (acute) lower respiratory infection; E78.5 Hyperlipidemia, unspecified; G25.81 Restless legs syndrome; Z79.82 Long term (current) use of aspirin; Z79.01 Long term (current) use of anticoagulants; Z87.891 Personal history of nicotine dependence; Z95.5 Presence of coronary angioplasty implant and graft; Z99.81 Dependence on supplemental oxygen; Z88.0 Allergy status to penicillin; Z66 Do not resuscitate
CPT/HCPCS: 71045; 93005; 97116; 97161; 97165; G0378; G8978; G8979; G8980; G8987; G8988; J2930; J7512; J7613; J7626

== ENCOUNTER 2018-05-31 19:28 | Inpatient (IN) | payer OTHER, MEDICARE ==
[2018-05-31] MEDS ORDERED: ALBUTEROL 3 ML DEYVIAL ONE (19:41)
[2018-05-31] MEDS ORDERED: IPRATROPIUM/ALBUTEROL 3 ML DEYVIAL ONE (19:42)
[2018-05-31] MEDS ORDERED: ALBUTEROL 3 ML DEYVIAL IH ONE (19:42)
[2018-05-31] MEDS ORDERED: IPRATROPIUM/ALBUTEROL 3 ML DEYVIAL IH ONE (19:42)
--- NOTE | 2018-05-31 19:44 | CPEKG ---
Heart Rate: 91 RR Interval: 659 P-R Interval: 152 QRSD Interval: 82 QT Interval: 356 QTC Interval: 439 P [place]: 78 QRS [place]: -42 T Wave [place]: 51 EKG Severity - ABNORMAL ECG - EKG Impression: SINUS RHYTHM EKG Impression: VENTRICULAR PREMATURE COMPLEX EKG Impression: LEFT ANTERIOR FASCICULAR BLOCK EKG Impression: LOW VOLTAGE IN FRONTAL LEADS EKG Impression: BORDERLINE ST DEPRESSION, ANTEROLATERAL LEADS Electronically Signed By: Carter Black 31-May-2018 21:46:43
[2018-05-31] MEDS ORDERED: methylPREDNISolone SOD SUCC 125 MG/2 ML VIAL IVP ONE (19:47)
[2018-05-31 19:54] LABS: PLATELET COUNT 255 10^3/uL (150-400)
--- NOTE | 2018-05-31 20:14 | EDPHY ---
H & P Smoking Status: Former smoker Time Seen by Provider: 05/31/18 19:32 HPI/ROS: CHIEF COMPLAINT: Shortness of breath for 3 days HISTORY OF PRESENT ILLNESS: Patient is a 83-year-old female with a history of COPD and paroxysmal atrial fibrillation here complaining of shortness of breath worsening for the last 3 days. She does report that this is similar to her episode in March of this year when she was admitted for COPD exacerbation. She has noticed no swelling in her legs. She has had a productive cough with phlegm but no hemoptysis. She is taking Xarelto for atrial fibrillation. She denies any chest pain diaphoresis. She has been trying albuterol at home without relief of symptoms. She is not currently taking oral prednisone. Review of her chart shows that in March of this year she was treated with Levaquin and prednisone in addition to no overnight observation admission for serial nebulizer treatments and she did quite well. Per EMS she was in respiratory distress on arrival was given 1 nebulizer treatment and felt greatly improved. She is typically using a 3-3.5 L oxygen by nasal cannula home at all times. EMS reports that she was satting in the upper 80s under showed evaluation on 3 L. REVIEW OF SYSTEMS: Constitutional: No fever, no chills. Eyes: No discharge. ENT: No sore throat. Cardiovascular: No chest pain, no palpitations. Respiratory: No cough, no shortness of breath. Gastrointestinal: No abdominal pain, no vomiting. Genitourinary: No hematuria. Musculoskeletal: No back pain. Skin: No rashes. Neurological: No headache. (uW Jensen) Physical Exam: General Appearance: Alert and no distress. Eyes: Pupils equal and round no injection. Respiratory: Chest is nontender, slight increased work of breathing with poor airway movement. No cyanosis Cardiac: regular rate and rhythm. Gastrointestinal: Abdomen is soft and nontender, no masses, bowel sounds normal. Musculoskeletal: Neck is supple and nontender. Extremities have full range of motion and are nontender. No lower extremity edema or unilateral calf swelling Skin: No rashes or lesions. (Wu Jensen) Constitutional: Initial Vital Signs Temperature (C) 37.3 C 05/31/18 19:15 Heart Rate 94 05/31/18 19:15 Respiratory Rate 22 H 05/31/18 19:15 Blood Pressure 162/84 H 05/31/18 19:15 O2 Sat (%) 88 L 05/31/18 19:15 O2 Delivery Mode Nasal Cannula O2 (L/minute) 4 Allergies/Adverse Reactions: metformin [Metformin] Allergy (Severe, Verified 03/26/18 22:01) Intolerant Penicillins Allergy (Severe, Verified 03/26/18 22:01) Hives tiotropium bromide [From Spiriva with HandiHaler] Allergy (Severe, Verified 02/08 22:01) Hives Home Medications: Medication Instructions Recorded Atorvastatin Calcium [Lipitor 10 10 mg PO DAILY@1800 02/29/16 mg (*)] Diltiazem Cd [Cardizem ER 120 MG 120 mg PO DAILY@1800 02/29/16 (*)] rOPINIRole HCL [Requip 0.25mg (RX)] 0.25 mg PO HS 03/31/16 Albuterol [Proventil Inhaler HFA 1 puffs IH DAILY PRN 08/14/16 (*)] Escitalopram Oxalate [Lexapro] 5 mg PO DAILY 04/24/17 Losartan Potassium [Cozaar] 100 mg PO DAILY@1800 04/24/17 Apixaban [Eliquis] 2.5 mg PO BID #60 tab 05/01/17 Digoxin [Lanoxin 125 mcg (RX)] 125 mcg PO DAILY AT 10AM #30 tab 05/01/17 Ipratropium [Atrovent Hfa (*)] 1 puffs IH QID #1 mdi 05/01/17 Metoprolol Tartrate [Lopressor 50 50 mg PO BID #60 tab 05/01/17 mg (*)] Albuterol [Proventil Neb] 3 ml IH QID deyvial 03/27/18 Medical Decision Making - Diagnostics EKG Interpretation: EKG: Complete interpretation has been separately recorded in the [facility] archive. Summary impression: Sinus rhythm, rate 91, ST depression noted in the lateral leads (Carter Black) Imaging Results: Imaging Impressions Chest X-Ray 05/31/18 19:41 Impression: 1. Patchy infiltrate/early pneumonia suspected possibly involving the lingula. ED Course/Re-evaluation: Patient here with worsening shortness of breath the last 3 days. Initial evaluation she is tachypneic but not hypoxic on 5 L. Her baseline oxygen is 3 L nasal cannula. She does show signs of increased work breathing with supraclavicular retractions. She has no lower extremity edema or JVD. Chest x- ray reveals pneumonia with no effusion. BNP is not elevated. Troponin is negative for ACS. She does have lateral ST depression on her EKG which is new. She was given 1 DuoNeb and 1 hr long continuous 10 mg albuterol treatment with 125 of Solu-Medrol. She feels slightly improved after these treatments. Additionally of his Levaquin after blood cultures were sent. She will be admitted to the hospitalist for further treatment of acute COPD exacerbation with pneumonia and hypoxia. (Wu Jensen) Other Provider: Independent physician exam I evaluated and participated in the management of the patient. I also evaluated the patient independently. My co-signature indicates that I have reviewed this chart and I agree with the findings and plan of care as documented. My personal H&P findings include: The patient presents to the ED with 3 days of dyspnea. She has a history of COPD and is on chronic oxygen. The patient denies recent prednisone use. The patient has been using her albuterol with some frequency. The patient denies fever or productive cough. She denies any acute chest pain. Physical exam: General Appearance: Alert, no distress Eyes: Pupils equal and round no pallor or injection ENT, Mouth: Mucous membranes moist Respiratory: Tachypnea, distant breath sounds Cardiovascular: Regular rate and rhythm Gastrointestinal: Abdomen is soft and nontender, no masses, bowel sounds normal Neurological: 5/5 strength all 4 extremities Skin: Warm and dry, no rashes Musculoskeletal: Neck is supple nontender Extremities: No asymmetric calf pain or swelling ED course: Patient's chest x-ray does demonstrate a possible lingular pneumonia. She presents to the ED with dyspnea from a presumed COPD exacerbation. This certainly could be multifactorial and complicated by a low-grade pneumonia. The patient was treated with IV steroids, albuterol and Atrovent. Blood cultures are obtained. The patient was given antibiotics in the emergency department. The patient will be admitted to the hospital under the care of Dr. Tremayne Srinivasan. (Carter Black) - Data Points Laboratory Results: Laboratory Results 05/31/18 19:44 05/31/18 19:44 07/08/18 07/08/18 07/08/18 20:41 19:44 19:44 WBC 10.24 10^3/uL H 10^3/uL (3.80-9.50) RBC 3.99 10^6/uL L 10^6/uL (4.18-5.33) Hgb 12.3 g/dL L g/dL (12.6-16.3) Hct 37.8 % L % (38.0-47.0) MCV 94.7 fL fL (81.5-99.8) MCH 30.8 pg pg (27.9-34.1) MCHC 32.5 g/dL g/dL (32.4-36.7) RDW 13.0 % % (11.5-15.2) Plt Count 255 10^3/uL 10^3/uL (150-400) MPV 9.4 fL fL (8.7-11.7) Neut % (Auto) 81.9 % H % (39.3-74.2) Lymph % (Auto) 9.4 % L % (15.0-45.0) Sargent % (Auto) 6.4 % % (4.5-13.0) Eos % (Auto) 0.8 % % (0.6-7.6) Baso % (Auto) 0.4 % % (0.3-1.7) Nucleat RBC Rel Count 0.0 % % (0.0-0.2) Absolute Neuts (auto) 8.39 10^3/uL H 10^3/uL (1.70-6.50) Absolute Lymphs (auto) 0.96 10^3/uL L 10^3/uL (1.00-3.00) Absolute Monos (auto) 0.66 10^3/uL 10^3/uL (0.30-0.80) Absolute Eos (auto) 0.08 10^3/uL 10^3/uL (0.03-0.40) Absolute Basos (auto) 0.04 10^3/uL 10^3/uL (0.02-0.10) Absolute Nucleated RBC 0.00 10^3/uL 10^3/uL (0-0.01) Immature Gran % 1.1 % % (0.0-1.1) Immature Gran # 0.11 10^3/uL H 10^3/uL (0.00-0.10) Sodium 137 mEq/L mEq/L (135-145) Potassium 4.3 mEq/L mEq/L (3.3-5.0) Chloride 97 mEq/L mEq/L (97-110) Carbon Dioxide 29 mEq/l mEq/l (22-31) Anion Gap 11 mEq/L mEq/L (8-16) BUN 7 mg/dL mg/dL (7-23) Creatinine 0.5 mg/dL L mg/dL (0.6-1.0) Estimated GFR > 60 Glucose 131 mg/dL H mg/dL (70-100) Calcium 9.4 mg/dL mg/dL (8.5-10.4) POC Troponin I 0.02 ng/mL ng/mL (0.00-0.08) NT-Pro-B Natriuret Pep 164 pg/mL pg/mL (0-450) Medications Given: Levofloxacin/Dextrose (Levaquin 750 Mg (Premix)) 150 mls @ 100 mls/hr IV DAILY CHE PRN Reason: Protocol Stop: 06/30/18 21:59 Last Admin: 05/31/18 21:38 Dose: 150 mls Discontinued Medications Albuterol (Proventil Neb) 10 ml IH CONT ONE Stop: 05/31/18 19:43 Last Admin: 05/31/18 21:25 Dose: 10 ml Albuterol/Ipratropium (Duoneb) 3 ml IH EDNOW ONE Stop: 05/31/18 19:43 Last Admin: 05/31/18 19:43 Dose: 3 ml Methylprednisolone Sodium Succinate (Solu-Medrol) 125 mg IVP EDNOW ONE Stop: 05/31/18 19:48 Last Admin: 05/31/18 19:53 Dose: 125 mg Point of Care Test Results: Chemistry 05/31/18 20:41 POC Troponin I 0.02 ng/mL ng/mL (0.00-0.08) Departure - Departure Disposition: [facility] Inpatient Acute Clinical Impression: Chronic obstructive pulmonary disease with acute exacerbation Pneumonia Qualifiers: Pneumonia type: due to unspecified organism Laterality: left Lung location: unspecified part of lung Qualified Code(s): J18.9 - Pneumonia, unspecified organism Condition: Fair
[2018-05-31] MEDS ORDERED: ONDANSETRON 4 MG/2 ML VIAL IVP PRN (21:25)
[2018-05-31] MEDS ORDERED: PROMETHAZINE HCL 25 MG/ML INJ IVP PRN (21:25)
[2018-05-31] MEDS ORDERED: ONDANSETRON DISINTEGRATING 4 MG TAB PO PRN (21:25)
[2018-05-31] MEDS ORDERED: ACETAMINOPHEN 325 MG TAB PO PRN (21:25)
[2018-05-31] MEDS ORDERED: oxyCODONE IR 5 MG TAB PO PRN (21:25)
[2018-05-31] MEDS ORDERED: ALBUTEROL 3 ML DEYVIAL IH PRN (21:25)
[2018-05-31] MEDS ORDERED: levOFLOXACIN 750 MG/DEXTROSE/150 ML BAG IV ONE (21:36)
--- NOTE | 2018-05-31 22:51 | GHP ---
[f rep st] HISTORY AND PHYSICAL DATE OF ADMISSION: 05/31/2018 CHIEF COMPLAINT: Shortness of breath. HISTORY: This is an 83-year-old female with a past medical history of COPD and chronic hypoxic respi ratory failure at baseline on 3-4 L of oxygen, presenting with several days of worsening shortness of breath and cough. She notes that she has had increased sputum production and that the sputum appear s darker and thicker in color. She has not had fevers or chills. She notes that with even mild exer tion like getting up and walking to the bathroom, she is extraordinarily short of breath. She has no t had any chest pain. She has not had any confusion. She does not have any urinary complaints. She does not have any lower extremity pain or swelling. PAST MEDICAL HISTORY: Includes: 1. Severe COPD. 2. Chronic hypoxic respiratory failure with baseline O2 requirement of 3-4 L. 3. Paroxysmal atrial fibrillation. 4. Coronary artery disease. PAST SURGICAL HISTORY: Includes: 1. PCI. 2. Tonsillectomy. 3. Tubal ligation. 4. Right shoulder arthroscopy. FAMILY HISTORY: Parents are . SOCIAL HISTORY: Patient is a prior smoker. She quit approximately 20 years ago. She is , li ves independently with her . She denies drugs or alcohol. REVIEW OF SYSTEMS: 10-point review of systems obtained and negative, except as per HPI. HOME MEDICATIONS: Include: 1. Requip. 2. Metoprolol. 3. Losartan. 4. Atrovent. 5. Lexapro. 6. Diltiazem. 7. Digoxin. 8. Atorvastatin. 9. Eliquis. 10. Albuterol. ALLERGIES: Metformin, penicillin, and tiotropium. PHYSICAL EXAMINATION: VITAL SIGNS: BP 157/76, heart rate 102, respiratory rate 16, O2 sat is 94% on 3.5 L, temperature is 36.9. GENERAL APPEARANCE: Chronically ill-appearing elderly female. She is awake and alert. She is in no acute distress. EYES: Anicteric. HENT: Oropharynx clear. CARDIOVA SCULAR: Regular rate and rhythm. No MRG. PULMONARY: Significantly diminished throughout with occa sional squeak. Essentially no breath sounds bilaterally. ABDOMEN: Soft, nontender. Positive bowel sounds. EXTREMITIES: No clubbing, cyanosis, or edema. SKIN: Warm, dry, well perfused. NEURO/PSY CH: Oriented, appropriate, pleasant. CLINICAL DATA: Labs reviewed. Notable for white blood cell count of 10.2, hematocrit of 37.8. Chem istry notable for glucose of 131. Troponin is 0.02. Chest x-ray, personally reviewed and interpreted, shows patchy infiltrate at the left base, new from prior. EKG, personally reviewed and interpreted, shows sinus rhythm, anterolateral ST depressions that are m inimal. ASSESSMENT AND PLAN: This is an 83-year-old female with chronic obstructive pulmonary disease and ch ronic hypoxic respiratory failure presenting with acute chronic obstructive pulmonary disease exacerb ation in the setting of pneumonia. 1. Acute chronic obstructive pulmonary disease exacerbation. Patient is presenting in respiratory d istress with increased work of breathing and utilizing accessory muscles. She will be started on wicho eduled nebs as well as continued on intravenous steroids overnight. Will ask for RT to get involved for pulmonary hygiene. 2. Pneumonia. Patient with a patchy left lower lobe pneumonia noted on chest x-ray. She will be st arted on Levaquin. A respiratory viral panel will be sent. Blood cultures were drawn in the emergen cy department. 3. [id number] hypoxic respiratory failure in the setting of chronic obstructive pulmonary dise ase exacerbation as above. Patient is noted to have increased work of breathing as mentioned. She d oes appear to be stable currently. 4. Leukocytosis without other signs, symptoms of sepsis at this time. Antibiotics have been initiat ed, and cultures are pending. 5. Paroxysmal atrial fibrillation, currently in sinus rhythm. 6. Inpatient status. Suspect patient will need greater than 48-hour stay for evaluation and managem ent of above. 7. Patient is new to my care. Old records reviewed, summarized as per History of Present Illness an d Past Medical History. Care plan reviewed with emergency room physician including plans for this ad mission. Further history obtained from patient's present at bedside. /[id number]/MODL
[2018-05-31] MEDS: APIXABAN 2.5 MG TAB PO SCH (22:52)
[2018-05-31] MEDS: methylPREDNISolone SOD SUCC 125 MG/2 ML VIAL IVP SCH (23:06)
[2018-06-01] MEDS: methylPREDNISolone SOD SUCC 125 MG/2 ML VIAL IVP SCH ×2 (05:30→12:52)
[2018-06-01 05:42] LABS: PLATELET COUNT 250 10^3/uL (150-400)
[2018-06-01] MEDS: IPRATROPIUM/ALBUTEROL 3 ML DEYVIAL IH SCH ×4 (06:03→21:55)
[2018-06-01] MEDS: APIXABAN 2.5 MG TAB PO SCH ×2 (08:16→20:57)
[2018-06-01] MEDS ORDERED: ENOXAPARIN 40 MG/0.4 ML SYR SC SCH (09:00)
[2018-06-01] MEDS: DILTIAZEM CD 180 MG CAP PO SCH (09:08)
[2018-06-01] MEDS ORDERED: DIGOXIN 125 MCG TAB PO SCH (10:00)
--- NOTE | 2018-06-01 10:27 | PDMN ---
Medical Necessity Medical necessity: Pt meets IP criteria per MD & MCG M-100; est los >2 mn for eval/tx of COPD exacerbation w/pneumonia; requiring IV steroids, IV abx, IVFs & respiratory supportive care; hx severe COPD, chronic hypoxic respiratory failure , AFIB & CAD; per H&P & order 05/31/18
--- NOTE | 2018-06-01 11:06 | ASMTCASEMG ---
Living Arrangements What is your living Answers: With Spouse arrangement? Who do you live with? Type Of Residence What kind of residence do Answers: House you live in? Discharge Plan Comments Coordination Status Comments Notes: Pt is a 83 y/o female admitted for pneumonia, COPD and hypoxia. PT has been ordered and awaiting recommendations. OT is recommending home w/ pulmonary rehab. Needs are TBD at this time. CM to follow. Plan: TBD Date Signed: 06/01/2018 11:05 AM Electronically Signed By:PAUL Shepherd
[2018-06-01] MEDS: predniSONE 20 MG TAB PO SCH (15:19)
--- NOTE | 2018-06-01 16:22 | HOSPPROG ---
Hospitalist Progress Note Assessment/Plan: ASSESSMENT: 83-year-old female presents with acute hypoxic respiratory failure secondary to acute COPD exacerbation and possible pneumonia Plan: 1. Acute hypoxic respiratory failure. Evidenced by SpO2 of 88% (equivalent to a PaO2 of 56 mm Hg) despite receiving her home supplemental oxygen flow rate of 4 liters/minute with visible respiratory distress and use of accessory muscles, objective tachypnea respiratory rate of 22, requiring up titration of supplemental oxygen, secondary to COPD exacerbation -improving status post scheduled duo nebs and IV steroids, continues to experience significant shortness of breath with any level of physical activity -pulmonary embolism ruled out with D-dimer 2. Acute COPD exacerbation. Evidenced by diffuse expiratory wheezes and shortened expiratory phase, breath sounds remain very tight on expiration inpatient continues to experience shortness of breath with any activity -adjust IV steroids to oral steroids given substantial insomnia last night, day 2 of 5 -continue scheduled duo nebs as the process remains clinically on resolved -as needed Tessalon Perles and Mucinex 3. Possible pneumonia. Present on admission, left lingular airspace disease on chest x-ray, personally interpreted, leukocytosis -day 2 of 5 of antibiotics, continue levofloxacin 4. Persistent atrial fibrillation patient currently in normal sinus rhythm on EKG (personally interpreted) and physical exam, secondary to aggressive anti rhythmic and peter blocking agents -continue home dosage of digoxin 125 mcg at 6:00 p.m. -up titrate patient's diltiazem from 120 mg daily to 180 mg daily given that we are holding her beta-gray given her COPD exacerbation -continue Eliquis, adjusted for age -initiate monitoring on telemetry to ensure we are not under treating any acute rapid ventricular response Diet. Regular Prophylaxis. High risk patient, currently on Eliquis Code. Limited Disposition. Anticipated discharge uncertain at this time, COPD exacerbation remains clinically on resolved. Subjective: Patient reports significant shortness of breath with any level of physical activity, she was unable to sleep last night Objective: Vital Signs Temp Pulse Resp BP Pulse Ox 36.9 C 101 H 18 152/78 H 96 06/01/18 15:37 06/01/18 15:37 06/01/18 15:37 06/01/18 15:37 06/01/18 15:37 Microbiology 05/31/18 22:46 Respiratory Panel (PCR) - Final Nasal, Sinus - Swab No Organism Detected Laboratory Results 06/01/18 04:35 05/31/18 06/01/18 06/02/18 05:59 05:59 05:59 Output Total 350 250 Balance -350 -250 - Physical Exam Constitutional: no apparent distress, not in pain, chronically ill appearing, uncomfortable Cardiovascular: tachycardia, No systolic murmur, No irregularly irregular, No edema Respiratory: reduced air movement (On expiration bilaterally), expiratory wheeze (Diffuse bilaterally), other (Use of accessory muscles with physical movement), No inspiratory crackles, No bronchial breath sounds Gastrointestinal: normoactive bowel sounds, soft, non-tender abdomen, no palpable masses, No distension Neurologic: AAOx3 Psychiatric: interacting appropriately, not anxious, not encephalopathic, thought process linear ICD10 Worksheet Patient Problems: Problems Problem Status Onset Coronary artery disease Acute COPD exacerbation Acute Infiltrate of lung present on imaging of chest Acute Chronic Disease Mgmt/Transitional Care Acute Atrial fibrillation Acute Elevated troponin Acute Hyperglycemia Acute Shoulder dislocation Acute Hill Sachs deformity, right Acute COPD exacerbation Acute Dehydration Acute Chronic obstructive pulmonary disease with acute exacerbation Acute Pneumonia Acute
[2018-06-01] MEDS: ESCITALOPRAM OXALATE 10 MG TAB PO SCH (17:17)
[2018-06-01] MEDS: LOSARTAN POTASSIUM 50 MG TAB PO SCH (17:18)
[2018-06-01] MEDS: ATORVASTATIN CALCIUM 10 MG TAB PO SCH (17:18)
[2018-06-01] MEDS ORDERED: guaiFENesin/CODEINE PHOS 10 ML UDCUP PO PRN (17:44)
[2018-06-01] MEDS ORDERED: BENZONATATE 100 MG CAP PO PRN (17:44)
[2018-06-01] MEDS ORDERED: DILTIAZEM CD 120 MG CAP PO SCH (18:00)
[2018-06-01] MEDS: traZODone 50 MG TAB PO SCH (20:57)
[2018-06-01] MEDS: FLUTICASONE/SALMETER 500/50MCG DISKUS IH SCH (21:55)
[2018-06-02] MEDS: DIGOXIN 125 MCG TAB PO SCH ×2 (02:58→18:18)
[2018-06-02] MEDS: IPRATROPIUM/ALBUTEROL 3 ML DEYVIAL IH SCH ×4 (05:55→20:52)
[2018-06-02] MEDS: predniSONE 20 MG TAB PO SCH (08:38)
[2018-06-02] MEDS: APIXABAN 2.5 MG TAB PO SCH ×3 (08:38→20:12)
[2018-06-02] MEDS: DILTIAZEM CD 180 MG CAP PO SCH (08:38)
[2018-06-02] MEDS: FLUTICASONE/SALMETER 500/50MCG DISKUS IH SCH ×2 (10:26→20:57)
--- NOTE | 2018-06-02 12:57 | ASMTCMCOM ---
CM Note CM Note Notes: CM spoke to [place] w/ transitional care. [place] met w/ pt. Pt is not interested in HC at this time. Therapies have cleared pt to go home without any needs. No other needs identified at this time. CM available for changes. Plan: Independent Date Signed: 06/02/2018 12:57 PM Electronically Signed By:PAUL Shepherd
--- NOTE | 2018-06-02 13:37 | HOSPPROG ---
Hospitalist Progress Note Assessment/Plan: Patient is an 83-year-old female presents with acute hypoxic respiratory failure secondary to acute COPD exacerbation and possible pneumonia. Today is my first encounter w the patient, chart reviewed. *Acute hypoxic respiratory failure -on 4 liters of O2, this is close to her baseline -has a negative d dimer -duonebs and oral steroids * Acute COPD exacerbation -close to her baseline -was very short of breath this morning while going to shower -cont the above treatments *Possible pneumonia. Present on admission -day 3 of 5 of antibiotics, continue levofloxacin * Persistent atrial fibrillation, rate controlled and on OAC (Eliquis) -in sinus during my evaluation -on digoxin w good rate control -beta gray being held due to COPD exacerbation, diltiazem dose increased to 180 mg -she has done well with holding beta gray *Plan: she will need another midnight stay, starting to feeling better but not quite ready for dc. Subjective: Bailee is happy, says she is finally feeling better. Objective: Vital Signs Temp Pulse Resp BP Pulse Ox 36.7 C 88 20 145/71 H 96 06/02/18 12:00 06/02/18 12:00 06/02/18 12:00 06/02/18 12:00 06/02/18 12:00 Microbiology 05/31/18 22:46 Respiratory Panel (PCR) - Final Nasal, Sinus - Swab No Organism Detected Laboratory Results 06/01/18 04:35 06/01/18 06/02/18 06/03/18 05:59 05:59 05:59 Output Total 350 650 900 Balance -350 -650 -900 - Physical Exam Constitutional: no apparent distress, appears nourished, not in pain Eyes: PERRL Ears, Nose, Mouth, Throat: hearing normal Cardiovascular: regular rate and rhythym Respiratory: no respiratory distress, reduced air movement Gastrointestinal: normoactive bowel sounds Skin: warm Musculoskeletal: generalized weakness Neurologic: AAOx3 Psychiatric: interacting appropriately ICD10 Worksheet Patient Problems: Problems Problem Status Onset Chronic obstructive pulmonary disease with acute exacerbation Acute Pneumonia Acute Atrial fibrillation Acute COPD exacerbation Acute COPD exacerbation Acute Chronic Disease Mgmt/Transitional Care Acute Coronary artery disease Acute Dehydration Acute Elevated troponin Acute Hill Sachs deformity, right Acute Hyperglycemia Acute Infiltrate of lung present on imaging of chest Acute Shoulder dislocation Acute
[2018-06-02] MEDS: ESCITALOPRAM OXALATE 10 MG TAB PO SCH (18:19)
[2018-06-02] MEDS: ATORVASTATIN CALCIUM 10 MG TAB PO SCH (18:19)
[2018-06-02] MEDS: LOSARTAN POTASSIUM 50 MG TAB PO SCH (18:20)
[2018-06-02] MEDS: traZODone 50 MG TAB PO SCH (20:11)
[2018-06-03] MEDS: IPRATROPIUM/ALBUTEROL 3 ML DEYVIAL IH SCH ×2 (04:51→10:00)
[2018-06-03] MEDS: FLUTICASONE/SALMETER 500/50MCG DISKUS IH SCH (10:00)
[2018-06-03] MEDS: predniSONE 20 MG TAB PO SCH (10:25)
[2018-06-03] MEDS: DILTIAZEM CD 180 MG CAP PO SCH (10:25)
[2018-06-03 11:44] VITALS: BP 142/76
--- NOTE | 2018-06-03 16:46 | PDDCSUM ---
Discharge Summary Discharge Summary: DISCHARGE SUMMARY FOLLOW-UP ITEMS: Follow up with primary gyroscopic instrument mechanic DATE OF ADMISSION: 05/31/2018 DATE OF DISCHARGE: 06/03/2018 DISCHARGE DIAGNOSES: 1. Acute hypoxic respiratory failure 2. Acute COPD exacerbation 3. Possible pneumonia present on admission 4. Persistent atrial fibrillation CONSULTATIONS: None PROCEDURES / IMAGING: Chest x-ray demonstrating possible left lingular pneumonia CHIEF COMPLAINT: Acute shortness of breath SUBJECTIVE: Patient is less short of breath at time discharge, she feels like her breathing is near her baseline PHYSICAL EXAM ON DISCHARGE: Systolic blood pressure is 150-160, heart rate 80, afebrile overnight, satting well on 3 L nasal cannula, alert awake oriented x3, lungs are clear to auscultation bilaterally without any inspiratory crackles or expiratory wheezes , heart rhythm is regular LABS ON DISCHARGE: Respiratory viral panel negative HOSPITAL COURSE BY PROBLEM: 1. Acute hypoxic respiratory failure. The patient presented with profound symptomatic shortness of breath with any level of activity. This was acutely different than her baseline. Evidenced by an SpO2 of 79% despite receiving her home supplemental oxygen flow rate of 4 liters/minute with visible respiratory distress and use of accessory muscles, objective tachypnea with respiratory rate of 22, requiring up titration of supplemental oxygen, most likely secondary to COPD exacerbation. Pulmonary embolism was ruled out with negative D-dimer. Her respiratory status improved after scheduled duo nebs and IV steroids. She has been weaned back to her supplemental oxygen home requirement and her work of breathing has stabilized to her baseline. 2. Acute COPD exacerbation. Evidenced by diffuse expiratory wheezes in short expiratory phase with very tight air movement during the 1st 48 hr of her hospitalization. She received IV steroids and these were converted to oral steroids and her scheduled duo nebs were adjusted to as needed. After approximately 72 hr, the patient's status clinically began to improve, and on the day of discharge, she is safe to follow up with primary gyroscopic instrument mechanic, Dr. Venu Kern. She is being provided with script for a ProAir inhaler to be continued as well as her home dosage of Advair. She will continue to subsequent days of prednisone, and the patient her would like to discussed with Dr. Venu Kern whether it would be appropriate for her to chronically utilize low-dose prednisone. 3. Possible pneumonia. Present on admission, left lingular airspace disease on chest x-ray with leukocytosis on presentation. The patient received 4 days of antibiotics and will receive her 5th and final day at home. 4. Persistent atrial fibrillation. Patient remained in normal sinus rhythm during her hospitalization, and continued to receive aggressive anti rhythmic and peter blocking agents. She was continued on her home dosage of digoxin and her diltiazem was up titrated from 120 daily to 180 daily. I discontinued her beta-gray given her underlying severe COPD. Her rate and rhythm seem to be reasonably controlled with single peter blocking agent. She will also be continued on her home dosage of Eliquis. DISCHARGE MEDICATIONS: Please see official discharge medication reconciliation sheet in chart , adjusted diltiazem to 180 once daily, discontinue nebivolol, 1 subsequent day of levofloxacin 750, prednisone 60 mg for 2 subsequent days. DISCHARGE INSTRUCTIONS: Please follow up with her outpatient gyroscopic instrument mechanic. TIME SPENT: Greater than 30 minutes were spent on direct patient care, as well as discharge planning and preparation.
== END 2018-06-03 15:30 | disposition home or self-care (01) | DRG 193 ==
LOC: EDUNIT# → F3E 22:06
PROVIDERS: ADMIT Internal Medicine; ATTEND Internal Medicine
DX: J18.9 Pneumonia, unspecified organism (principal); J96.21 Acute and chronic respiratory failure with hypoxia; J44.1 Chronic obstructive pulmonary disease with (acute) exacerbation; I48.1 Persistent atrial fibrillation; I25.10 Atherosclerotic heart disease of native coronary artery without angina pectoris; Z79.01 Long term (current) use of anticoagulants
CPT/HCPCS: 84484-PO; 96374; 97110-GP; 97116-GP; 97162-GP; 97166-GO; 97530-GO; G8978-GP-CJ; G8979-GP-CI; G8987-GO-CJ; G8988-GO-CI; J1956; J2930; J7512; J7613

== ENCOUNTER 2018-06-05 07:30 | Emergency (ER) | payer OTHER, MEDICARE ==
[2018-06-05] MEDS ORDERED: predniSONE 20 MG TAB PO ONE (07:41)
--- NOTE | 2018-06-05 07:45 | EDPHY ---
HPI/HX/ROS/PE/MDM Narrative: CHIEF COMPLAINT: Dyspnea HPI: The patient is an 83 y/o female with history of CAD, COPD, and chronic hypoxemic respiratory failure who arrives via EMS complaining of shortness of breath this morning. She was recently admitted on 05/31/18 for 3 days also for shortness of breath. She was treated for COPD exacerbation and possible pneumonia on chest x-ray with nebulizer treatments, steroids, and Levaquin and discharged home two days ago. Yesterday she was feeling relatively well. This morning the patient felt worse than normal shortness of breath and used her home nebulizer treatment without relief. She reports her home SpO2 was in the mid 80s when she called EMS. On EMS arrival her SpO2 was in the mid 90s. They administered a duo neb followed by a continuous albuterol neb en route with improvement in her symptoms. SpO2 on arrival is 97%. She denies fever, urinary symptoms, vomiting, abdominal pain, diarrhea, chest pain, leg swelling. REVIEW OF SYSTEMS: Aside from elements discussed in the HPI, a comprehensive 10-point review of systems was reviewed and is negative. PMH: Atrial fibrillation - Eliquis; COPD; chronic hypoxemic respiratory failure with baseline O2 requirement of 3-4L; CAD SOCIAL HISTORY: Former smoker, quit about 20 years ago. Lives independently with . No drugs or alcohol. Mortgage Servicing Specialist: Dr. Kern. Prior medial records reviewed including admission 05/31/18 for dyspnea. PHYSICAL EXAM: General:Patient is alert, in no acute distress. ENT:Eyes are normal to inspection. ENT inspection normal. Neck: Normal inspection. Full range of motion. Respiratory:No respiratory distress. Breath sounds poor air movement with tight wheezing bilaterally. Cardiovascular: Regular rate and rhythm. Strong peripheral pulses. Normal cap refill. Abdomen:The abdomen is nontender to palpation. There are no peritoneal signs. Back: Normal to inspection. No tenderness to palpation. Skin: Normal color. No rash. Warm and dry. Extremities: Normal appearance. Full range of motion. Neuro: Oriented x3. Normal motor function. Normal sensory function. ED Course: This is an 83 y/o female with COPD and chronic respiratory failure who presents via EMS with [id number] dyspnea two days after being discharged for similar symptoms. She has not been hypoxemic for EMS nor upon arrival here. On auscultation she has poor air movement with tight wheezing bilaterally. Plan for IV, labs, EKG, chest x-ray, continuous neb as needed, and oral steroids. 60mg PO prednisone ordered. The 12 lead EKG was interpreted by myself. See hard copy and/or "tracemaster" electronic copy for interpretation. Chest x-ray: COPD, no worsening of prior possible lingular pneumonia 0845: Reevaluated patient and discussed work up. She reports she is feeling much better and says, "I think I like the hospital, I feel better as soon as I get here." She felt relatively well yesterday and last saw her animal physiology teacher 1 month ago. She has a follow up appointment scheduled in 2 weeks. She would prefer to be discharged home if possible. manager math had extensive discussion with patient. She has arranged for pulmonology appointment as an outpatient within 2 hours from now. She has also arranged home care and a palliative care evaluation. MDM: This patient returns to the hospital after recent discharge complaining of continued symptoms of COPD exacerbation. Her workup in the ED reveals no significant findings, and no evidence of PNA or CHF. She is already on treatment with azithromycin and prednisone, and has home oxygen and nebulizers. We discussed options at length, including readmission, but patient would prefer to be discharged. I think she will need pulmonology evaluation much sooner than her current appointment two weeks out, and thankfully the special education case manager has arranged for an appointment later today. I think the patient is safe for trial of continued outpatient management. - Data Points Imaging Results: Imaging Impressions Chest X-Ray 06/05/18 07:42 Impression: Stable chest with lingular opacity that could be related to atelectasis or pneumonia. Findings discussed with Joseph Huber MD 06/05/2018 at 9:20. Imaging: I viewed and interpreted images myself Laboratory Results: Laboratory Results 06/05/18 07:10 06/05/18 07:10 06/05/18 06/05/18 06/05/18 07:43 07:10 07:10 WBC 15.87 10^3/uL H 10^3/uL (3.80-9.50) RBC 4.11 10^6/uL L 10^6/uL (4.18-5.33) Hgb 12.7 g/dL g/dL (12.6-16.3) Hct 38.6 % % (38.0-47.0) MCV 93.9 fL fL (81.5-99.8) MCH 30.9 pg pg (27.9-34.1) MCHC 32.9 g/dL g/dL (32.4-36.7) RDW 12.9 % % (11.5-15.2) Plt Count 260 10^3/uL 10^3/uL (150-400) MPV 9.6 fL fL (8.7-11.7) Neut % (Auto) Not Reported Lymph % (Auto) Not Reported [place] % (Auto) Not Reported Eos % (Auto) Not Reported Baso % (Auto) Not Reported Nucleat RBC Rel Count Not Reported Absolute Neuts (auto) Not Reported Absolute Lymphs (auto) Not Reported Absolute Monos (auto) Not Reported Absolute Eos (auto) Not Reported Absolute Basos (auto) Not Reported Absolute Nucleated RBC Not Reported Immature Gran % Not Reported Seg Neutrophils % 90.0 % % Band Neutrophils % 0 % % Lymphocytes % 6.0 % % Monocytes % 4.0 % % Eosinophils % 0 % % Basophils % 0 % % Metamyelocytes % 0 % % Myelocytes % 0 % % Promyelocytes % 0 % % Blast Cells % 0 % % Immature Gran # Not Reported Absolute Seg Neuts 14.28 10^/uL H 10^/uL (1.70-6.50) Absolute Band Neuts 0.00 10^3/uL 10^3/uL (0.00-0.70) Absolute Lymphocytes 0.95 10^3/uL L 10^3/uL (1.00-3.00) Absolute Monocytes 0.63 10^3/uL 10^3/uL (0.30-0.80) Absolute Eosinophils 0.00 10^3/uL L 10^3/uL (0.03-0.40) Absolute Basophils 0.00 10^3/uL L 10^3/uL (0.02-0.10) Absolute Metamyelocyte 0.00 10^3/mL 10^3/mL (0.00-0.00) Absolute Myelocytes 0.00 10^3/mL 10^3/mL (0.00-0.00) Absolute Promyelocytes 0.00 10^3/uL 10^3/uL (0.00-0.00) Absolute Plasma Cells 0.00 10^3/uL 10^3/uL (0.00-0.00) Nucleated RBCs 0 /100 WBC /100 WBC (0-0) Atypical Lymphocytes 2+ H Absolute Blast Cells 0.00 10^3/uL 10^3/uL (0.00-0.00) Plasma Cells % 0 % % Platelet Estimate ADEQUATE (ADEQ) Smear Review By Pending Puncture Site VENOUS Patient Temperature 37.0 DEGREES DEGREES VBG pH 7.33 (7.31-7.42) VBG HCO3 31 mEQ/L H mEQ/L (22-26) VBG Total CO2 33 mEq/L H mEq/L (21-27) VBG O2 Saturation 86 % H % (65-75) VBG Base Excess 4.2 mEq/L H mEq/L (-2.5-2.5) Mixed VBG pCO2 61 mmHg H mmHg (40-44) Mixed VBG pO2 54 mmHG H mmHG (35-40) Sodium 138 mEq/L mEq/L (135-145) Potassium 3.7 mEq/L mEq/L (3.3-5.0) Chloride 97 mEq/L mEq/L (97-110) Carbon Dioxide 33 mEq/l H mEq/l (22-31) Anion Gap 8 mEq/L mEq/L (8-16) BUN 18 mg/dL mg/dL (7-23) Creatinine 0.6 mg/dL mg/dL (0.6-1.0) Estimated GFR > 60 Glucose 196 mg/dL H mg/dL (70-100) Calcium 9.1 mg/dL mg/dL (8.5-10.4) Medications Given: Discontinued Medications Prednisone (Prednisone) 60 mg PO EDNOW ONE Stop: 06/05/18 07:42 Last Admin: 06/05/18 07:55 Dose: 60 mg General Time Seen by Provider: 06/05/18 07:30 Initial Vital Signs: Initial Vital Signs Temperature (C) 37.1 C 06/05/18 07:35 Heart Rate 103 H 06/05/18 07:35 Respiratory Rate 24 H 06/05/18 07:35 Blood Pressure 193/96 H 06/05/18 07:35 O2 Sat (%) 80 L 06/05/18 07:35 O2 Delivery Mode Nasal Cannula O2 (L/minute) 3 Allergies/Adverse Reactions: metformin [Metformin] Allergy (Severe, Verified 06/05/18 07:41) Intolerant Penicillins Allergy (Severe, Verified 06/05/18 07:41) Hives tiotropium bromide [From Spiriva with HandiHaler] Allergy (Severe, Verified 07:41) Hives tiotropium bromide Allergy (Unknown, Uncoded 06/05/18 15:42) Hives Home Medications: Medication Instructions Recorded Atorvastatin Calcium [Lipitor 10 10 mg PO DAILY@1800 02/29/16 mg (*)] rOPINIRole HCL [Requip 0.25mg (RX)] 0.25 mg PO HS 03/31/16 Escitalopram Oxalate [Lexapro] 5 mg PO DAILY18 04/24/17 Losartan Potassium [Cozaar] 100 mg PO DAILY@1800 04/24/17 Apixaban [Eliquis] 2.5 mg PO BID #60 tab 05/01/17 Albuterol [Proventil Neb] 3 ml IH QID deyvial 03/27/18 Digoxin [Lanoxin 125 mcg (RX)] 125 mcg PO DAILY18 06/01/18 Fluticasone/Salmeter 500/50Mcg 1 puffs IH BID 06/01/18 [Advair 500/50 (*)] Albuterol [Proventil Inhaler HFA 1 puffs IH Q4 PRN #1 mdi 06/03/18 (*)] Diltiazem Cd [Cardizem ER Q24hr] 180 mg PO DAILY #30 cap 06/03/18 levOFLOXACIN [levAQUIN (*)] 750 mg PO DAILY #1 tab 06/03/18 predniSONE 60 mg PO DAILY #6 tablet 06/03/18 Departure - Departure Disposition: Home, Routine, Self-Care Clinical Impression: COPD exacerbation Condition: Good Instructions: COPD (Chronic Obstructive Pulmonary Disease) (ED) Additional Instructions: Go directly to your pulmonology appointment. Continue all medications as directed. Return to the ED for worsening of condition. Referrals: Alfonso Davies MD [Primary Care Provider] - As per Instructions Venu Kern MD [Medical Doctor] - As per Instructions Report Scribed for: Joseph Huber Report Scribed by: Lila Oviedo Date of Report: 06/05/18 Time of Report: 07:33 Physician Review and Approval Statement: Portions of this note were transcribed by an ED scribe. I personally performed the history, physical exam, and medical decision making; and confirm the accuracy of the information in the transcribed note.
[2018-06-05 07:49] LABS: PLATELET COUNT 260 10^3/uL (150-400)
--- NOTE | 2018-06-05 08:06 | CPEKG ---
Heart Rate: 107 RR Interval: 561 QRSD Interval: 78 QT Interval: 336 QTC Interval: 449 QRS [place]: -3 T Wave [place]: 93 EKG Severity - ABNORMAL ECG - EKG Impression: Sinus rhythm with artifact, frequent PACs Electronically Signed By: Dennis Lamas 07-Jun-2018 09:11:06
[2018-06-05 10:40] VITALS: BP 171/94
--- NOTE | 2018-06-05 11:16 | ASMTCMCOM ---
CM Note CM Note Notes: 06/05/2018 Case Management Note Met w/pt and to discuss discharge needs. Pt did not want to be admitted to [facility] inpatient. Arranged for [facility] RN to follow pt at home. Faxed referral. [facility] RN to see pt on Friday. Discussed benefits of Palliative Care. Pt and in agreement. Faxed referral to [facility] Palliative requesting visit early next week. Arranged for appointment with samuel Miranda of Dr. Alfonso Davies (PCP) for today at 11:30 am. Transitional Care RN came to room to provide teaching for pt and . Transitional care to coordinate with outpatient providers. Per Transitional Care RN pt insurance refused to fill her ProAir inhaler prescribed at her last discharge from [facility] earlier this week because it was too soon. Notified Dr. Kern office of ED visit and above information. Fior the housing officer to contact pt to move up Jun. appointment. Pt transported directly to Dr. Zaragoza's office from the ED. Date Signed: 06/05/2018 11:15 AM Electronically Signed By:Chanda Ryan RN
--- NOTE | 2018-06-05 11:18 | ASDISCHSUM ---
Discharge Information Plan Status:Home with Home Health Medically Cleared to Leave:06/05/2018 Discharge Date:06/05/2018 10:51 AM D/C Disposition:Home Health Service [facility] D/C Disposition:Home, Routine, Self-Care Projected Discharge Date:06/05/2018 11:00 AM Transportation at D/C:Family Discharge Delay Reason: Follow-Up Date:06/05/2018 11:00 AM Discharge Slot: Final Diagnosis: Placement Information Referral Type:Palliative Care Referral ID:[id number] Provider Name:[facility] Address 1:[address] Phone Number: Address 2: Fax Number: [facility]:[place] Selection Factors: State:[place] Referral Type:*Home Health Care Services Referral ID:[id number] Provider Name:[facility] Address 1:[address] [place] [address] Address 2: [facility]:[place] Selection Factors: State:[place] Patient Contact Information Contact Name:MARIO Relationship: Address:[address] Work Phone: [facility] Phone: [facility]/Zip Code:[place] [address] Email: Financial Information Financial Class:Medicare Primary Plan Desc:MEDICARE OUTPATIENT Primary Plan Number:[id number] Secondary Plan Desc:[employer]ARP/MDR SUPPLEMENT Secondary Plan Number:[id number] Assessment Information [facility] CM Progress Note CM Note CM Note Notes: 06/05/2018 Case Management Note Met w/pt and to discuss discharge needs. Pt did not want to be admitted to [facility] inpatient. Arranged for [facility] RN to follow pt at home. Faxed referral. [facility] RN to see pt on Friday. Discussed benefits of Palliative Care. Pt and in agreement. Faxed referral to [facility] Palliative requesting visit early next week. Arranged for appointment with samuel Miranda of Dr. Alfonso Davies (PCP) for today at 11:30 am. Transitional Care RN came to room to provide teaching for pt and . Transitional care to coordinate with outpatient providers. Per Transitional Care RN pt insurance refused to fill her ProAir inhaler prescribed at her last discharge from [facility] earlier this week because it was too soon. Notified Dr. Kern office of ED visit and above information. Fior the bank officer to contact pt to move up Jun. appointment. Pt transported directly to Dr. Zaragoza's office from the ED. Date Signed: 06/05/2018 11:15 AM Electronically Signed By:Chanda Ryan RN LACE LACE Length of stay for Answers: Less than 1 day current admission Acuity / Level of Answers: No Care: Did the patient have an inpatient admission? Comorbidities - select Answers: Chronic pulmonary disease all that apply Coronary Artery Disease Other Notes: chronic hypoxemic respiratory failure, af ib # of Emergency department Answers: 3-4 visits in the last 6 months Score: 8 Date Signed: 06/05/2018 11:17 AM Electronically Signed By:Chanda Ryan RN Intervention Information
== END 2018-06-05 10:51 | disposition home or self-care (01) ==
LOC: EDUNIT#
DX: J44.1 Chronic obstructive pulmonary disease with (acute) exacerbation (principal); I25.10 Atherosclerotic heart disease of native coronary artery without angina pectoris; Z87.891 Personal history of nicotine dependence
CPT/HCPCS: 71046; 93005; 99285; J7512

== ENCOUNTER 2018-06-22 19:05 | Emergency (ER) | payer OTHER, MEDICARE ==
[2018-06-22] MEDS ORDERED: ALBUTEROL 3 ML DEYVIAL IH ONE (19:10)
--- NOTE | 2018-06-22 19:13 | EDPHY ---
H & P Time Seen by Provider: 06/22/18 19:05 HPI/ROS: CHIEF COMPLAINT: COPD exacerbation HISTORY OF PRESENT ILLNESS: The patient presents to the ED via EMS with a acute COPD exacerbation. The patient has a history of chronic AFib and end- stage COPD. She has had multiple visits to the emergency department and hospitalizations this month for both COPD in AFib. The patient had been doing relatively well over the past several days however yesterday developed increasing dyspnea and reported increasing ambulatory hypoxemia. The patient contacted 911. She was noted to have decreased air movement by paramedics. She was given Solu-Medrol intravenously and a DuoNeb. The patient arrives in the emergency department with complaints of improving dyspnea. She was last found to be 94% on 4 L nasal cannula oxygen by paramedics. The patient denies any fever or productive cough. She was treated for a possible lingular infiltrate earlier in the month. She has been on oral steroids over the past month additionally. The patient has been on a tapering dose of prednisone and recently dropped to 10 mg a day. REVIEW OF SYSTEMS: A comprehensive 10 point review of systems is otherwise negative aside from elements mentioned in the history of present illness. Source: Patient Exam Limitations: No limitations - Personal History Tetanus Vaccine Date: < 10 years - Medical/Surgical History Hx Asthma: No Hx Chronic Respiratory Disease: Yes Hx Diabetes: No Hx Cardiac Disease: Yes Hx Renal Disease: No Hx Cirrhosis: No Hx Alcoholism: No Hx HIV/AIDS: No Hx Splenectomy or Spleen Trauma: No Other PMH: pmh- COPD,CHRONIC HYPOXIA HTN, CAD , PAFIB. psh- breast augmentation , tonsilectomy,, cardiac stent x2, tubal ligation, RSL - Social History Smoking Status: Former smoker - Physical Exam Exam: General Appearance: Elderly female, mild tachypnea Eyes: Pupils equal and round no pallor or injection ENT, Mouth: Mucous membranes moist Respiratory: Decreased air movement bilaterally, scant expiratory wheezing Cardiovascular: Regular rate and rhythm Gastrointestinal: Abdomen is soft and nontender, no masses, bowel sounds normal Neurological: 5/5 strength all 4 extremities Skin: Warm and dry, no rashes Musculoskeletal: Neck is supple nontender Extremities: symmetrical, full range of motion, no pedal edema, no asymmetric calf pain or swelling Constitutional: Initial Vital Signs Temperature (C) 37.3 C 06/22/18 19:11 Heart Rate 102 H 06/22/18 19:11 Respiratory Rate 24 H 06/22/18 19:11 Blood Pressure 186/82 H 06/22/18 19:11 O2 Sat (%) 95 06/22/18 19:11 O2 Delivery Mode Nasal Cannula O2 (L/minute) 5 Allergies/Adverse Reactions: metformin [Metformin] Allergy (Severe, Verified 06/22/18 19:10) Intolerant Penicillins Allergy (Severe, Verified 06/22/18 19:10) Hives tiotropium bromide [From Spiriva with HandiHaler] Allergy (Severe, Verified 19:10) Hives tiotropium bromide Allergy (Unknown, Uncoded 06/22/18 19:10) Hives Home Medications: Medication Instructions Recorded Atorvastatin Calcium [Lipitor 10 10 mg PO DAILY@1800 02/29/16 mg (*)] rOPINIRole HCL [Requip 0.25mg (RX)] 0.25 mg PO HS 03/31/16 Escitalopram Oxalate [Lexapro] 5 mg PO DAILY18 04/24/17 Losartan Potassium [Cozaar] 100 mg PO DAILY@1800 04/24/17 Apixaban [Eliquis] 2.5 mg PO BID #60 tab 05/01/17 Albuterol [Proventil Neb] 3 ml IH QID deyvial 03/27/18 Digoxin [Lanoxin 125 mcg (RX)] 125 mcg PO DAILY@10 06/01/18 Albuterol [Proventil Inhaler HFA 1 puffs IH Q4 PRN #1 mdi 06/03/18 (*)] Fluticasone/Salmeter 250/50Mcg 1 puffs IH BID 06/10/18 [Advair 250/50 (*)] LORazepam [Ativan] 0.5 mg PO HS PRN 06/10/18 predniSONE [Prednisone] 35 mg PO AD 06/10/18 Diltiazem Cd [Cardizem ER 120 MG 120 mg PO DAILY #30 cap 06/11/18 (*)] Insulin Lispro [HumaLOG LISPRO] 0 - 10 unit SC TIDMEAL #100 unit 06/11/18 Medical Decision Making - Diagnostics EKG Interpretation: EKG: Complete interpretation has been separately recorded in the [employer] archive. Summary impression: Sinus rhythm, rate 94, no ischemic changes noted Imaging Results: Imaging Impressions Chest X-Ray 06/22/18 19:10 Impression: 1. No active cardiopulmonary disease seen. 2. Hyperexpanded lungs compatible underlying COPD similar to the prior study. ED Course/Re-evaluation: The patient has a history of fairly significant end-stage COPD and presents to the ED with an acute COPD exacerbation. The patient was noted to be mildly tachypneic upon arrival. She was feeling subjectively better after a single DuoNeb. She received IV Solu-Medrol prior to arrival in the ambulance. The patient was given additional albuterol nebulizer. A chest x-ray was ordered which shows no pneumonia. I re-evaluated the patient at 8:00 p.m. She is feeling much better. The patient was offered admission to the hospital for observation however she would like to go home. She has an appointment to see her machine assembler for puller over Dr. Kern tomorrow. The patient will discuss with him her prednisone dose. She did receive a full dose of Solu-Medrol this evening. The patient is comfortable going home and returning to the ED for any worsening dyspnea. Differential Diagnosis: Differential diagnosis considered includes COPD exacerbation, asthma, bronchitis , pneumonia, heart failure, arrhythmia - Data Points Medications Given: Discontinued Medications Albuterol (Proventil Neb) 3 ml IH EDNOW ONE Stop: 06/22/18 19:11 Last Admin: 06/22/18 19:23 Dose: 3 ml Departure - Departure Disposition: Home, Routine, Self-Care Clinical Impression: Acute exacerbation of COPD with asthma Condition: Good Instructions: COPD (Chronic Obstructive Pulmonary Disease) (ED) Additional Instructions: 1. You can take 40 mg of prednisone tomorrow if needed for any shortness of breath. 2. Please follow up with Dr. Kern as scheduled. 3. Please return to the ED for any recurrent dyspnea or should you reconsider your decision to be discharged from the emergency department today. Referrals: Alfosno Davies MD [Primary Care Provider] - As per Instructions
--- NOTE | 2018-06-22 19:37 | CPEKG ---
Heart Rate: 94 RR Interval: 638 P-R Interval: 148 QRSD Interval: 76 QT Interval: 340 QTC Interval: 426 P Cherry: 81 QRS Cherry: -7 T Wave Cherry: 103 EKG Severity - OTHERWISE NORMAL ECG - EKG Impression: SINUS RHYTHM Electronically Signed By: Carter Black 22-Jun-2018 19:48:15
[2018-06-22 20:22] VITALS: BP 178/88
== END 2018-06-22 20:32 | disposition home or self-care (01) ==
LOC: EDUNIT#
DX: J44.1 Chronic obstructive pulmonary disease with (acute) exacerbation (principal); J45.909 Unspecified asthma, uncomplicated; Z87.891 Personal history of nicotine dependence
CPT/HCPCS: 71046; 93005; 99284; J7613